=== PATIENT | male | born 1950 | race African-American/Black ===

== ENCOUNTER 2020-02-04 14:52 | Emergency (ER) | payer MEDICARE, OTHER, SELFPAY ==
[2020-02-04 15:08] VITALS: BP 149/89; PULSE 79; RESP 16; TEMP 37.2; O2SAT 95
--- NOTE | 2020-02-04 15:16 | ECG_ITS ---
Test Reason : WEAKNEDD Blood Pressure : / mmHG Vent. Rate : 069 BPM Atrial Rate : 069 BPM P-R Int : 162 ms QRS Dur : 088 ms QT Int : 336 ms P-R-T Axes : 062 067 051 degrees QTc Int : 360 ms Normal sinus rhythm with sinus arrhythmia Nonspecific ST and T wave abnormality Abnormal ECG When compared with ECG of 04-DEC-2010 22:25, ST more elevated in Inferior leads Lateral leads Referred By: Rosalina Lechuga Electronically Signed By:KEZIA TUTTLE MD
--- NOTE | 2020-02-04 15:16 | XR_ITS ---
EXAMINATION: XR CHEST CLINICAL INFORMATION: Generalized weakness COMPARISON: November 18, 2016 TECHNIQUE: AP portable view of the chest was obtained. FINDINGS: No significant abnormality is noted involving the heart, lungs, mediastinum, bony thorax or soft tissues. XR/XR chest 1V IMPRESSION: No acute disease.
[2020-02-04 15:17] VITALS: BP 151/86; PULSE 70; RESP 19; TEMP 37.2; BMI 26.3
[2020-02-04 15:25] VITALS: BP 135/79; PULSE 79
--- NOTE | 2020-02-04 15:25 | ED.WEAKNESS ---
HPI - Weakness General Chief complaint: Weakness Stated complaint: weakness Time Seen by Provider: 02/04/20 15:09 Source: patient Mode of arrival: ambulatory History of Present Illness HPI Narrative: 69-year-old male with a past medical history of BPH, spinal stenosis, hypoparathyroid, urinary retention, c/o increased fatigue/generalized weakness, migraine headache, decreased p.o. intake and feeling flushed x2 days. Reports feels similar to when he had sepsis in the past. Admits to epidural steroid injection for spinal stenosis on . Reports history of migraines, headache not maximal in onset. Denies vision changes, CP/SOB, nausea/vomiting/diarrhea, urinary symptoms, numbness/tingling MD Complaint: generalized weakness and lack of energy Related Data Previous Rx's Medication Instructions Recorded tamsulosin 0.4 mg capsule 0.4 mg PO DAILY #90 cap 02/01/20 tamsulosin 0.4 mg capsule 0.4 mg PO BEDTIME #30 cap 02/02/20 tamsulosin 0.4 mg capsule 0.4 mg PO BEDTIME #30 cap 02/02/20 Allergies Allergy/AdvReac Type Severity Reaction Status Date / Time nut - unspecified [NUTS] Allergy Mild THROAT Verified 02/04/20 17:27 RODRIGUEZ pollen extracts [POLLEN] Allergy Mild Nasal Unverified 02/04/20 17:28 congestion GRASS Allergy Mild Nasal Uncoded 02/04/20 17:28 congestion Review of Systems Review of Systems: Constitutional: No Weight loss, No Fever, No Chills, +Fatigue, + Malaise ENT/Mouth: No sore throat, No Rhinorrhea Eyes: No Vision Changes Cardiovascular: No Chest Pain, No SOB, No Palpitations Respiratory: No Cough, No Sputum, No Dyspnea Gastrointestinal: No Nausea, No Vomiting, No Diarrhea, No Constipation, No Abdominal pain Genitourinary: N No Dysuria, No Urinary Frequency, No Hematuria, No Flank Pain, No Urinary Flow Changes Musculoskeletal: No joint pain, No Myalgias, No Joint Swelling Skin: No Skin Lesions, No rash Neuro: +Weakness, No Numbness, No Paresthesias, No Loss of Consciousness, No Dizziness, + Headache Yes all other systems are reviewed and are negative Neurologic: Denies Sensory deficit (Neuro) PMFSH Past Medical History Attestation statement: The following information was validated with the patient. Medical History (Updated 02/04/20 @ 17:11 by MAISHA Callaway) BPH (benign prostatic hyperplasia) Kidney stones Sepsis Spinal stenosis Surgical hypoparathyroidism Urinary retention Surgical History (Updated 02/04/20 @ 15:22 by Joselin Westbrook) H/O shoulder surgery Social History Social History Alcohol intake: former Smoking Status: Former smoker Use of substances other than those prescribed or required for medical reasons: No Advance Directives: No Advance Directives Information Provided: No Physical Exam Vital Signs: Vital Signs: Last Vital Signs Temp 99.0 F 02/04/20 15:17 Pulse 89 02/04/20 15:27 Resp 19 02/04/20 15:17 BP 145/79 H 02/04/20 15:27 Pulse Ox 95 02/04/20 15:08 Body Mass Index 26.3 Const: General: cooperative and healthy appearing Orientation/consciousness: patient oriented x3 Limitations: no limitations HENMT: Head: Yes normal to inspection Ears: hearing grossly normal bilaterally General nose exam: Normal external nose present Face and sinus: Yes normal facial exam Mouth: Normal oral and palatal mucosa present Throat: Yes posterior oropharynx normal Eyes: General: appearance normal, both eyes and all related structures Pupils: Equal, round and reactive pupils present EOM: EOMs intact bilaterally Neck: Neck: Yes normal visual inspection, Yes no lymphadenopathy and Yes no meningeal signs Resp: Effort & Inspection: normal respiratory effort Auscultation: clear to auscultation bilaterally, no crackles, no rhonchi and no wheezes Cardio: Rate: regular rate Heart sounds: S1 normal heart sound present and S2 normal heart sound present GI: Inspection: Yes normal to inspection Palpation (GI): Soft to palpation, nontender, no guarding and not rigid Skin: Rashes: no rashes Wounds: no wounds Neuro: General: patient oriented x3, gait normal, tone normal, moves all extremities, no meningeal signs, no focal motor deficits and CN's II-XI intact bilaterally Cranial nerves: Yes Equal, round and reactive pupils present Gait exam (Neuro): Normal gait present Motor exam (neuro): 5/5 motor strength present throughout Sensory Exam: No Sensory deficit (Neuro) Coordination: [id number] test normal Extrem: General: Yes normal to inspection Course Course Course Narrative: -EKG showing ST elevation in V3 through V6, no reciprocal changes, EKG change from prior 2010. Picture sent to dehydration unit operator, Dr. Mora who does not believe this is active STEMI. Patient without active CP. Recommended 2nd troponin, and repeat EKG. Reports likely repolarization or pericarditis -WBC 12.7, BUN 32, initial troponin 10.9 >> will obtain 3 hour repeat -CXR unremarkable -1713--repeat EKG without changes from prior --1800--ED care transferred to MAISHA Simpson pending repeat troponin, orthostatic vital signs, and UA MDM - Weakness MDM Narrative Medical decision making narrative: 69-year-old male with a past medical history of BPH, spinal stenosis, hypoparathyroid, urinary retention, c/o increased fatigue/generalized weakness, migraine headache, decreased p.o. intake and feeling flushed x2 days. On exam VSS, NAD/well-appearing, exam benign/nonfocal, no focal neuro deficits. Concern for viral syndrome/COVID-19 vs metabolic abnormalities. Rule out infectious etiology. Low concern for CVA/meningitis, or sepsis Plan: EKG, labs, UA, CXR, IVF, reassess Lab Data Result diagrams: 02/04/20 15:43 02/04/20 15:43 Labs: Lab Results 02/04/20 02/04/20 02/04/20 Range/Units 15:43 15:43 15:43 WBC 12.7 H (4.8-10.8) X10*3/uL RBC 5.83 H (4.60-5.80) X10*6/uL Hgb 14.0 (14.0-18.0) g/dl Hct 43.9 (42-52) % MCV 75.3 L (80-98) fL MCH 24.0 L (27.0-33.0) pg MCHC 31.9 (31.0-36.0) g/dl RDW 12.5 (11.0-16.0) % Plt Count 323 (160-400) X10*3/uL MPV 10.2 (9.4-12.4) fL Immature Gran % (Auto) 1.3 H (0.0-0.4) % Neut % (Auto) 70.0 (45-73) % Lymph % (Auto) 17.1 L (20-40) % [place] % (Auto) 11.5 H (2-11) % Eos % (Auto) 0.0 (0-4) % Baso % (Auto) 0.1 (0-2) % Lymph # (Auto) 2.2 (1.2-4.9) X10*3/uL [place] # (Auto) 1.5 H (0.1-1.2) X10*3/uL Eos # (Auto) 0.0 (0.0-0.4) X10*3/uL Baso # (Auto) 0.0 (0.0-0.2) X10*3/uL Abs Immat Gran (auto) 0.17 H (0.00-0.03) X10*3/uL Absolute Neuts (auto) 8.9 H (2.0-8.3) X10*3/uL Absolute Nucleated RBC 0.000 (0.0-0.012) X10*3/uL Nucleated RBC % (auto) 0.0 (0.0-0.2) /100WBC Hold Blue Top SEE NOTE Sodium 136 (135-145) mmol/L Potassium 4.3 (3.3-5.1) mmol/l Chloride 100 (96-108) mmol/L Carbon Dioxide 24 (22-29) mmol/L Anion Gap 16 (12-20) BUN 32 H (9-16) mg/dL Creatinine 1.30 (0.5-1.4) mg/dL Estim Creat Clear Calc 59.6 Estimated GFR 55 Random Glucose 102 (60-115) mg/dL Calcium 9.5 (8.4-10.2) mg/dL Magnesium (1.6-2.6) mg/dL Total Bilirubin 1.0 (0.0-1.0) mg/dL Direct Bilirubin 0.3 (0.0-0.5) mg/dL AST 34 (5-37) U/L ALT 49 H (0-40) U/L Alkaline Phosphatase 63 (39-117) U/L Troponin I High Sens (<3.5-35.0) ng/L Total Protein 7.3 (6.5-8.0) g/dL Albumin 4.4 (3.5-5.0) g/dL Lipase (8-78) U/L Urine Color Urine Appearance Urine pH (5.0-8.0) Ur Specific [place] (1.005-1.025) Urine Protein (NEG-TRACE) MG/DL Urine Glucose (UA) (NEG) MG/DL Urine Ketones (NEG) MG/DL Urine Blood (NEG) Urine Nitrite (NEG) Ur Leukocyte Esterase (NEG) Urine RBC (0) /HPF Urine WBC (0-4) /HPF Ur Squamous Epith Cells /LPF Urine Bacteria /LPF 02/04/20 02/04/20 02/04/20 Range/Units 15:43 15:43 17:10 WBC (4.8-10.8) X10*3/uL RBC (4.60-5.80) X10*6/uL Hgb (14.0-18.0) g/dl Hct (42-52) % MCV (80-98) fL MCH (27.0-33.0) pg MCHC (31.0-36.0) g/dl RDW (11.0-16.0) % Plt Count (160-400) X10*3/uL MPV (9.4-12.4) fL Immature Gran % (Auto) (0.0-0.4) % Neut % (Auto) (45-73) % Lymph % (Auto) (20-40) % [place] % (Auto) (2-11) % Eos % (Auto) (0-4) % Baso % (Auto) (0-2) % Lymph # (Auto) (1.2-4.9) X10*3/uL [place] # (Auto) (0.1-1.2) X10*3/uL Eos # (Auto) (0.0-0.4) X10*3/uL Baso # (Auto) (0.0-0.2) X10*3/uL Abs Immat Gran (auto) (0.00-0.03) X10*3/uL Absolute Neuts (auto) (2.0-8.3) X10*3/uL Absolute Nucleated RBC (0.0-0.012) X10*3/uL Nucleated RBC % (auto) (0.0-0.2) /100WBC Hold Blue Top Sodium (135-145) mmol/L Potassium (3.3-5.1) mmol/l Chloride (96-108) mmol/L Carbon Dioxide (22-29) mmol/L Anion Gap (12-20) BUN (9-16) mg/dL Creatinine (0.5-1.4) mg/dL Estim Creat Clear Calc Estimated GFR Random Glucose (60-115) mg/dL Calcium (8.4-10.2) mg/dL Magnesium 2.3 (1.6-2.6) mg/dL Total Bilirubin (0.0-1.0) mg/dL Direct Bilirubin (0.0-0.5) mg/dL AST (5-37) U/L ALT (0-40) U/L Alkaline Phosphatase (39-117) U/L Troponin I High Sens 10.9 (<3.5-35.0) ng/L Total Protein (6.5-8.0) g/dL Albumin (3.5-5.0) g/dL Lipase 13 (8-78) U/L Urine Color STRAW Urine Appearance CLEAR Urine pH 6.0 (5.0-8.0) Ur Specific [place] 1.020 (1.005-1.025) Urine Protein NEG (NEG-TRACE) MG/DL Urine Glucose (UA) NEG (NEG) MG/DL Urine Ketones NEG (NEG) MG/DL Urine Blood TRACE (NEG) Urine Nitrite NEG (NEG) Ur Leukocyte Esterase NEG (NEG) Urine RBC 0 (0) /HPF Urine WBC 0 (0-4) /HPF Ur Squamous Epith Cells NONE /LPF Urine Bacteria TRACE /LPF Discharge Plan Discharge Clinical Impression: Generalized weakness Patient Disposition: Home, Self-Care Instructions: Weakness (ED) Additional Instructions: Your EKG had concerning changes, however your blood work is reassuring today in the ED You need to have close follow-up with her doctor Make sure staying hydrated at home If symptoms persist or worsen, you develop focal weakness, numbness/tingling, chest pain, or shortness of breath return to the ED immediately You should follow-up with a dehydration unit operator Based on your symptoms and history we have sent a COVID-19. Although your RESULT IS PENDING at this time. RESULTS should return within 72 hours. At this time you will be contacted with either NEGATIVE OR POSITIVE results. -Please wait until we contact you for your results. At this time you will be okay for discharge. Please plan for self quarantine for up to 14 days. Do not expose yourself to others. You may not go to work. If testing does come back negative you may return to activities as long as you are no longer having any symptoms for at least 3 days. Please continue to follow cold instructions and wash your hands frequently. You may take Tylenol as directed on the bottle for pain or fever. Patient seen in the emergency department on 09/23/2019 and should be excused from work until negative test results AND until 72 hours without any symptoms AND at least 10 days have passed since symptoms first appeared or since last exposure to COVID-19 positive patient CDC Guidelines for home isolation: - Stay away from others - WEAR A MASK if you are sick AND STAY HOME - Cover your mouth and nose with a tissue when you cough or sneeze. Dispose of tissues in a lined trash can and wash your hands immediately with soap and water for at least 20 seconds. If soap and water are not available, clean hands with alcohol-based hand capital markets specialist that contains at least 60% alcohol. - Clean your hands often with soap and water for at least 20 seconds - Avoid touching your eyes, nose and mouth with unwashed hands - Do not share dishes, drinking glasses, cups, eating utensils, towels, or bedding with other people in your home. After using these items, wash them thoroughly with soap and water or put in the registration representative. - Clean high-touch surfaces in your isolation area ( sick room and bathroom) every day; let a caregiver clean and disinfect high-touch surfaces in other areas of the home. Clean the area or item with soap and water or another detergent if it is dirty. Then, use a household disinfectant. - Limit contact with pets and animals: If you must care for a pet, wash your hands before and after interacting with them) Prescriptions: No Action tamsulosin 0.4 mg capsule 0.4 mg PO BEDTIME Qty: 30 RF: 2 tamsulosin 0.4 mg capsule 0.4 mg PO BEDTIME Qty: 30 RF: 2 Referrals: oBla Mora MD [Physician] - 5 days Ronnie Sifuentes MD [Primary Care Provider] - 2 days
[2020-02-04 15:27] VITALS: BP 130/86; BP 145/79; PULSE 77; PULSE 89
--- NOTE | 2020-02-04 15:40 | PC.NURSE ---
patient a&o, power machine operator applied-nsr, iv inserted, labs drawn, pt medicated per order, will continue to monitor.
[2020-02-04 15:52] LABS: MANUAL DIFF FLAG NO
[2020-02-04 15:55] LABS: Basophils Percent Auto 0.1 % (0-2); Hematocrit 43.9 % (42-52); Imm Gran Abs Auto 0.17 X10*3/uL (0.00-0.03); Imm Gran Pct Auto 1.3 % (0.0-0.4); Lymphocytes Absolute Auto 2.2 X10*3/uL (1.2-4.9); Lymphocytes Percent Auto 17.1 % (20-40); Mean Corpuscular HGB Conc 31.9 g/dl (31.0-36.0); Mean Corpuscular Volume 75.3 fL (80-98); Mean Platelet Volume 10.2 fL (9.4-12.4); Monocytes Absolute Auto 1.5 X10*3/uL (0.1-1.2); Monocytes Percent Auto 11.5 % (2-11); Neutrophils Absolute Auto 8.9 X10*3/uL (2.0-8.3); Platelet Count 323 X10*3/uL (160-400); Red Blood Count 5.83 X10*6/uL (4.60-5.80); Red Cell Distribution Width 12.5 % (11.0-16.0); White Blood Count 12.7 X10*3/uL (4.8-10.8)
[2020-02-04] MEDS: 0.9 % Sodium Chloride 1,000 ML 999 ML IVCONT (16:20)
[2020-02-04] MEDS: Acetaminophen 325 MG TABLET 650 MG PO (16:21)
[2020-02-04 16:30] LABS: Alanine Aminotransferase 49 U/L (0-40); Albumin Level 4.4 g/dL (3.5-5.0); Alkaline Phosphatase 63 U/L (39-117); Anion Gap 16 (12-20); Aspartate Amino Transferase 34 U/L (5-37); Bilirubin Direct 0.3 mg/dL (0.0-0.5); Blood Urea Nitrogen 32 mg/dL (9-16); Calcium 9.5 mg/dL (8.4-10.2); Carbon Dioxide 24 mmol/L (22-29); Chloride 100 mmol/L (96-108); Creatinine Clr Calc Pharmacy 59.6; Estimated Glomerular Filt Rate 55; Glucose Random 102 mg/dL (60-115); Potassium 4.3 mmol/l (3.3-5.1); Sodium 136 mmol/L (135-145); Total Protein 7.3 g/dL (6.5-8.0)
[2020-02-04 16:32] LABS: Troponin-I High Sensitivity 10.9 ng/L (<3.5-35.0)
[2020-02-04 16:37] LABS: Lipase 13 U/L (8-78); Magnesium 2.3 mg/dL (1.6-2.6)
--- NOTE | 2020-02-04 16:43 | ECG_ITS ---
Test Reason : REPEAT Blood Pressure : / mmHG Vent. Rate : 059 BPM Atrial Rate : 059 BPM P-R Int : 162 ms QRS Dur : 088 ms QT Int : 356 ms P-R-T Axes : 067 063 045 degrees QTc Int : 352 ms Sinus bradycardia Nonspecific ST and T wave abnormality Abnormal ECG When compared with ECG of 04-FEB-2020 15:39, No significant change was found Referred By: Rosalina Lechuga Electronically Signed By:KEZIA TUTTLE MD
[2020-02-04 17:26] LABS: Glucose Urine UA NEG (NEG); Leukocyte Esterase Urine NEG (NEG); Nitrite Urine NEG (NEG); Urine Blood TRACE (NEG); Urine Ketones NEG (NEG); Urine Protein NEG (NEG-TRACE)
[2020-02-04 17:29] LABS: Appearance Urine CLEAR; Color Urine STRAW
[2020-02-04 17:36] LABS: Bacteria Urine TRACE /LPF; RBC Urine 0 /HPF (0); WBC Urine 0 /HPF (0-4)
[2020-02-04 18:15] VITALS: BP 137/76; PULSE 60; RESP 18; TEMP 37.1; O2SAT 96
--- NOTE | 2020-02-04 18:16 | PC.NURSE ---
patient a&ox3, pt ivf continue to run as they were running slow- iv site checked-patient, patient awaiting results of labs, will continue to monitor.
[2020-02-04 19:26] LABS: Troponin-I High Sensitivity 14.4 ng/L (<3.5-35.0)
== END 2020-02-04 20:00 | disposition home or self-care (01) ==
PROVIDERS: Physician Assistant; Emergency Provider Emergency Medicine; PCP Family Medicine
DX: R53.1 Weakness (principal); R51.9 Headache, unspecified; Z79.899 Other long term (current) drug therapy; Z20.828 Contact with and (suspected) exposure to other viral communicable diseases
CPT/HCPCS: 36415; 71045; 80048; 80076; 81001; 83690; 83735; 84484; 85025; 93005; 96360; 99284; U0003

== ENCOUNTER → 2020-06-07 15:23 | Outpatient (BNVA) | payer MEDICARE, OTHER, SELFPAY | PROVIDERS: Visit Provider Urology | DX: Z13.89 Encounter for screening for other disorder (principal) | CPT/HCPCS: Q3014 ==

== ENCOUNTER 2021-08-28 12:51 | Outpatient (REF) | payer MEDICARE, OTHER, SELFPAY ==
--- NOTE | ~2021-08-28 | US_ITS ---
EXAMINATION: US RETROPERITONEAL LIMITED (RENAL ONLY) CLINICAL INFORMATION: Calculus of kidney. COMPARISON: Ultrasound renal with bladder 12/20/2018. TECHNIQUE: Real-time imaging of the kidneys. FINDINGS: RIGHT KIDNEY: 11.0 x 5.8 x 6.4 cm (SAG x AP x TRV). The kidney is normal in size, contour, and echogenicity. Renal cortical thickness is normal. No renal calculi or hydronephrosis. There are at least 3 anechoic cysts. The mid pole cyst has a septation and measures 2.1 x 2.3 x 2.0 cm. A simple mid pole cyst measures 0.9 x 1.0 x 0.9 cm and a simple cyst lower pole measuring 1.0 x 1.0 x 1.0 cm. LEFT KIDNEY: 10.8 x 4.8 x 5.4 cm (SAG x AP x TRV). The kidney is normal in size, contour, and echogenicity. Renal cortical thickness is normal. No calculi or focal parenchymal lesions. No hydronephrosis. US/US renal BI IMPRESSION: Two simple cysts and a complex cyst of the right kidney. The left kidney is unremarkable.
== END 2021-08-28 12:52 | disposition home or self-care (01) ==
LOC: HO.US 12:51
PROVIDERS: Visit Provider Urology
DX: N20.0 Calculus of kidney (principal)
CPT/HCPCS: 76775

== ENCOUNTER → 2021-09-06 13:44 | Outpatient (BNVA) | payer MEDICARE, OTHER, SELFPAY | PROVIDERS: PCP Student in an Organized Health Care Education/Training Program; Visit Provider Urology | DX: N40.1 Benign prostatic hyperplasia with lower urinary tract symptoms (principal); N13.8 Other obstructive and reflux uropathy; N31.9 Neuromuscular dysfunction of bladder, unspecified; N20.0 Calculus of kidney; N28.1 Cyst of kidney, acquired | CPT/HCPCS: 51798; 99212 ==

== ENCOUNTER 2022-08-28 12:24 | Outpatient (REF) | payer MEDICARE, SELFPAY ==
--- NOTE | ~2022-08-28 | US_ITS ---
EXAMINATION: US RETROPERITONEAL LIMITED (RENAL ONLY) CLINICAL INFORMATION: Cyst of kidney, acquired. COMPARISON: Ultrasound retroperitoneal limited (renal only) 08/28/2021. TECHNIQUE: Real-time imaging of the kidneys. FINDINGS: RIGHT KIDNEY: 9.6 x 5.3 x 5.3 cm (SAG x AP x TRV). The kidney is normal in size, contour, and echogenicity. Renal cortical thickness is normal. No renal calculi or hydronephrosis. Benign-appearing and likely benign appearing renal cysts the largest with a thin internal septation measuring 2.2 cm on the previously 2.3 cm. LEFT KIDNEY: 10.5 x 5.0 x 5.4 cm (SAG x AP x TRV). The kidney is normal in size, contour, and echogenicity. Renal cortical thickness is normal. No calculi or focal parenchymal lesions. No hydronephrosis. Punctate echogenic focus is in the mid pole without shadowing or twinkle artifact may reflect a vascular reflector. US/US renal BI IMPRESSION: 1. Benign-appearing and likely benign appearing renal cysts the largest measuring 2.2 cm on the right with a thin internal septation, not significantly changed from prior.
== END 2022-08-28 12:25 | disposition home or self-care (01) ==
LOC: HO.US 12:24
PROVIDERS: PCP Student in an Organized Health Care Education/Training Program; Visit Provider Urology
DX: N28.1 Cyst of kidney, acquired (principal)
CPT/HCPCS: 76775

== ENCOUNTER → 2022-09-10 14:32 | Outpatient (BNVA) | payer MEDICARE, SELFPAY | PROVIDERS: PCP Student in an Organized Health Care Education/Training Program; Visit Provider Urology | DX: N28.1 Cyst of kidney, acquired (principal); N20.0 Calculus of kidney; N31.9 Neuromuscular dysfunction of bladder, unspecified; N40.1 Benign prostatic hyperplasia with lower urinary tract symptoms; N13.8 Other obstructive and reflux uropathy; R33.9 Retention of urine, unspecified; R42 Dizziness and giddiness; Z79.899 Other long term (current) drug therapy | CPT/HCPCS: 99212 ==

== ENCOUNTER 2023-05-16 12:50 | Emergency (ER) | payer MEDICARE, SELFPAY ==
--- NOTE | ~2023-05-16 | XR_ITS ---
EXAMINATION: XR CHEST CLINICAL INFORMATION: Chest pain COMPARISON: Previous chest x-ray most recent January 2020 TECHNIQUE: Frontal view of the chest was obtained. FINDINGS: The cardiac and mediastinal contours are stable. 8 mm nodular density projects over the right lung base. This probably represents a nipple shadow and is similar to old exams from 2010. Lungs are otherwise clear. No pleural effusion or pneumothorax. Bony structures are unremarkable. XR/XR chest 1V IMPRESSION: No evidence for acute disease in the chest. 8 mm nodular density at the right lung base, probably representing a nipple shadow.
--- NOTE | 2023-05-16 12:53 | ECG_ITS ---
Test Reason : CHEST PAIN Blood Pressure : / mmHG Vent. Rate : 063 BPM Atrial Rate : 063 BPM P-R Int : 194 ms QRS Dur : 086 ms QT Int : 352 ms P-R-T Axes : 066 050 024 degrees QTc Int : 360 ms Normal sinus rhythm with sinus arrhythmia Nonspecific ST and T wave abnormality Abnormal ECG When compared with ECG of 04-FEB-2020 17:05, No significant change was found Referred By: Rosalina Musa Electronically Signed By:Bola Mora
[2023-05-16 13:53] VITALS: BP 141/78; PULSE 65; RESP 16; TEMP 36.3; O2SAT 96; BMI 25.8
--- NOTE | 2023-05-16 13:53 | ED_ITS ---
HPI - Chest Pain General Chief Complaint: Chest Pain Stated Complaint: chest pain Time Seen by Provider: 05/16/23 16:09 Source: patient Mode of arrival: ambulatory History of Present Illness HPI narrative: 72-year-old male who was doing the crossword puzzle today at approximately 11:45 and then began experiencing substernal chest pressure with radiation into the right jaw without associated lightheadedness/dizziness/shortness of breath or nausea but states that he did feel weak, he was able to go up stairs to get changed and also walked to the car and came into the emergency room. He denies any worsening of his symptoms with exertion and states that this has not happened previously and that his symptoms lasted for approximately 1 hour. He denies any history of hypertension or diabetes. Related Data Allergies Allergy/AdvReac Type Severity Reaction Status Date / Time nut - unspecified [NUTS] Allergy Mild THROAT Verified 05/16/23 13:57 RODRIGUEZ pollen extracts [POLLEN] Allergy Mild Nasal Verified 05/16/23 13:57 congestion GRASS Allergy Mild Nasal Uncoded 05/16/23 13:57 congestion Review of Systems 2 Review of Systems: Pertinent positives and negatives as stated in HPI PMFSH Past Medical History Source: nursing notes reviewed Medical History Kidney stones Surgical hypoparathyroidism Sepsis BPH (benign prostatic hyperplasia) Urinary retention Spinal stenosis Surgical History H/O shoulder surgery Social History Social History Alcohol intake: former Smoked in Last 30 Days: No Use of substances other than those prescribed or required for medical reasons: No Advance Directives: No Advance Directives Information Provided: No Physical Exam 2 Vital Signs: Vital Signs: Last Vital Signs Temp 98.0 F 05/16/23 17:48 Pulse 57 05/16/23 17:48 Resp 16 05/16/23 17:48 BP 128/70 05/16/23 17:48 Pulse Ox 98 05/16/23 17:48 O2 Del Method Room Air 05/16/23 17:48 BMI result Body Mass Index 25.8 VITAL SIGNS: Reviewed. GENERAL: Well developed, well nourished, in no acute distress. HEAD: Normocephalic/atraumatic EYES: PERRLA, EOMI EARS: Ext canals without abnormality NOSE: Nares patent bilateral OROPHARYNX: no oral lesions noted, posterior pharynx clear NECK: Supple, no adenopathy LUNGS: Normal breath sounds. No adventitious sounds or accessory muscle use. SpO2<98> CARDIOVASCULAR: Regular rate and rhythm without noted murmurs ABDOMEN: Soft, non-tender, non-distended with bowel sounds. MUSCULOSKELETAL: No tenderness, deformities, or effusions noted on gross inspection. EXTREMITIES: No cyanosis, clubbing or edema. SKIN: Inspection of the skin reveals no rashes NEUROLOGIC: Alert and oriented x 4. Strength and sensation to light touch were grossly intact x 4. 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 Pain resolved at present. denies fever, dizziness, SOB EKG, Labs, CXR ordered Full HPI, ROS and PE to be performed by primary ED provider. Medical Decision Making Medical Decision Making [facility] Narrative: 72-year-old male with history and clinical presentation, DDX: ACS, musculoskeletal, viral syndrome, completely asymptomatic at this time. HEART Score: 4 I reviewed all investigations and hematologic indices are negative for leukocytosis or left shift, there is no anemia or thrombocytopenia. Coagulation studies are within normal limits. Chemistry indices are grossly within normal limits and there are no noted derangements, serial troponins are flat/detectable but not significantly elevated. COVID-19 testing is negative. Chest x-ray negative for infiltrate or venous congestion and otherwise my interpretation is in agreement with radiology's impression. Patient is completely asymptomatic, had no increase in chest discomfort with exertion, though symptoms are somewhat concerning serial troponins are without elevation and there are no acute EKG changes. I discussed all results and findings with the patient at bedside and he was strongly encouraged to follow-up with his collar shaper operator on Thursday. Differential Diagnosis Differential Diagnoses: The differential diagnosis associated with the presentation includes Please see the discussion above Admission/Observation Consideration of admission/observation: Escalation of care including admission/observation considered Please see the discussion above Lab Data [facility] Lab Attestation statement: I reviewed the patient's lab results. Please see the discussion above 05/16/23 13:49 05/16/23 13:49 Labs: Lab Results 05/16/23 05/16/23 05/16/23 Range/Units 13:49 16:53 17:24 WBC 5.8 (4.8-10.8) X10*3/uL RBC 6.00 H (4.60-5.80) X10*6/uL Hgb 14.1 (14.0-18.0) g/dl Hct 45.9 (42.0-52.0) % MCV 76.5 L (80.0-98.0) fL MCH 23.5 L (27.0-33.0) pg MCHC 30.7 L (31.0-36.0) g/dl RDW 13.2 (11.0-16.0) % Plt Count 216 (160-400) X10*3/uL MPV 10.3 (9.4-12.4) fL Immature Gran % (Auto) 0.2 (0.0-0.4) % Neut % (Auto) 48.1 (45-73) % Lymph % (Auto) 41.7 H (20-40) % [place] % (Auto) 9.2 (2-11) % Eos % (Auto) 0.3 (0-4) % Baso % (Auto) 0.5 (0-2) % Lymph # (Auto) 2.4 (1.2-4.9) X10*3/uL [place] # (Auto) 0.5 (0.1-1.2) X10*3/uL Eos # (Auto) 0.0 (0.0-0.4) X10*3/uL Baso # (Auto) 0.0 (0.0-0.2) X10*3/uL Abs Immat Gran (auto) 0.01 (0.00-0.03) X10*3/uL Absolute Neuts (auto) 2.8 (2.0-8.3) x10*3/uL Absolute Nucleated RBC 0.000 (0.0-0.012) X10*3/uL Nucleated RBC % (auto) 0.0 (0.0-0.2) /100WBC PT 11.1 (11.1-13.3) SEC INR 0.9 (0.9-1.1) Sodium 143 (135-145) mmol/L Potassium 4.3 (3.3-5.1) mmol/L Chloride 106 (96-108) mmol/L Carbon Dioxide 28 (22-29) mmol/L Anion Gap 13 (12-20) BUN 16 (9-16) mg/dL Creatinine 1.22 (0.5-1.4) mg/dL Estim Creat Clear Calc 60.9 Estimated GFR 59 Random Glucose 102 (60-115) mg/dL Calcium 9.8 (8.4-10.2) mg/dL Magnesium 2.2 (1.6-2.6) mg/dL Total Bilirubin 0.8 (0.0-1.0) mg/dL AST 37 (5-37) U/L ALT 25 (0-40) U/L Alkaline Phosphatase 68 (39-117) U/L Troponin I High Sens 6.7 4.6 (<3.5-35.0) ng/L Total Protein 7.9 (6.5-8.0) g/dL Albumin 4.5 (3.5-5.0) g/dL COVID-19 ([facility]) Negative (Negative) COVID-19 Clin Com See Note Independent Interpretation I performed an independent interpretation of an: EKG Interpretation: Normal sinus rhythm with sinus arrhythmia, HR-63, no STEMI, lateral ST changes or consistent with EKG comparison from 2020, HI/QRS/QTC is within normal limits. Radiology Impression Discussion of test interpretation with radiology: I have reviewed the radiologist's reading. Radiologist Impression: Please see the discussion above External Record Review External record reviewed: Outpatient record, Prior outpatient labs and Prior outpatient radiology Critical Care Time Critical Care Time Critical Care Time: Yes Total Critical Care Time: 45 Attestation: I personally attest to this time spent taking care of the patient. Discharge Plan Discharge Clinical Impression: Chest pain Patient Disposition: Home, Self-Care Instructions: Chest Pain (ED) Additional Instructions: 1. Resume all home medications. 2. Follow-up with your collar shaper operator on Thursday morning. Return to the ER for any worsening symptoms.
[2023-05-16 13:54] LABS: MANUAL DIFF FLAG NO
[2023-05-16 13:56] LABS: Basophils Percent Auto 0.5 % (0-2); Eosinophils Percent Auto 0.3 % (0-4); Hematocrit 45.9 % (42.0-52.0); Hemoglobin 14.1 g/dl (14.0-18.0); Imm Gran Abs Auto 0.01 X10*3/uL (0.00-0.03); Imm Gran Pct Auto 0.2 % (0.0-0.4); Lymphocytes Absolute Auto 2.4 X10*3/uL (1.2-4.9); Lymphocytes Percent Auto 41.7 % (20-40); Mean Corpuscular HGB Conc 30.7 g/dl (31.0-36.0); Mean Corpuscular Hemoglobin 23.5 pg (27.0-33.0); Mean Corpuscular Volume 76.5 fL (80.0-98.0); Mean Platelet Volume 10.3 fL (9.4-12.4); Monocytes Absolute Auto 0.5 X10*3/uL (0.1-1.2); Monocytes Percent Auto 9.2 % (2-11); Neutrophils Absolute Auto 2.8 x10*3/uL (2.0-8.3); Neutrophils Percent Auto 48.1 % (45-73); Platelet Count 216 X10*3/uL (160-400); Red Cell Distribution Width 13.2 % (11.0-16.0); White Blood Count 5.8 X10*3/uL (4.8-10.8)
[2023-05-16 14:02] LABS: INTERNATIONAL NORM RATIO 0.9 (0.9-1.1); Prothrombin Time 11.1 SEC (11.1-13.3)
[2023-05-16 14:15] LABS: Alanine Aminotransferase 25 U/L (0-40); Albumin Level 4.5 g/dL (3.5-5.0); Alkaline Phosphatase 68 U/L (39-117); Anion Gap 13 (12-20); Aspartate Amino Transferase 37 U/L (5-37); Bilirubin Total 0.8 mg/dL (0.0-1.0); Blood Urea Nitrogen 16 mg/dL (9-16); Calcium 9.8 mg/dL (8.4-10.2); Carbon Dioxide 28 mmol/L (22-29); Chloride 106 mmol/L (96-108); Creatinine Clr Calc Pharmacy 60.9; Estimated Glomerular Filt Rate 59; Glucose Random 102 mg/dL (60-115); Magnesium 2.2 mg/dL (1.6-2.6); Potassium 4.3 mmol/L (3.3-5.1); Sodium 143 mmol/L (135-145); Total Protein 7.9 g/dL (6.5-8.0)
[2023-05-16 14:22] LABS: Troponin-I High Sensitivity 6.7 ng/L (<3.5-35.0)
[2023-05-16 15:37] VITALS: BP 126/71; PULSE 60; RESP 16; TEMP 36.4; O2SAT 98
[2023-05-16 17:31] LABS: Troponin-I High Sensitivity 4.6 ng/L (<3.5-35.0)
[2023-05-16 17:44] LABS: COVID-19 Test Negative (Negative); IDNOW Serial# 58CA691E
[2023-05-16 17:48] VITALS: BP 128/70; PULSE 57; RESP 16; TEMP 36.7; O2SAT 98
== END 2023-05-16 18:39 | disposition home or self-care (01) ==
PROVIDERS: Internal Medicine; Physician Assistant; Emergency Provider Student in an Organized Health Care Education/Training Program
DX: R07.9 Chest pain, unspecified (principal); Z11.52 Encounter for screening for COVID-19
CPT/HCPCS: 36415; 71045; 80053; 83735; 84484; 85025; 85610; 87635; 93005; 99283; 99284

== ENCOUNTER → 2023-05-16 12:53 | Outpatient (BNV) | payer MEDICARE, SELFPAY | PROVIDERS: Emergency Provider Student in an Organized Health Care Education/Training Program; Visit Provider Internal Medicine Cardiovascular Disease | DX: R94.31 Abnormal electrocardiogram [ECG] [EKG] (principal) | CPT/HCPCS: 93010 ==

== ENCOUNTER 2023-09-08 13:37 | Outpatient (AMB) | payer MEDICARE, SELFPAY ==
--- NOTE | 2023-09-08 13:52 | MHC.OFFVIS ---
Intake Visit Reasons: 1y/PVR Intake Note: Patient is Present for PVR/ Urology Med: Tamsulosin Antibiotic Allergy:None Blood Thinner: None Last PVR: 200 Todays PVR:456 Allergies nut - unspecified [NUTS] Allergy (Mild, Verified 09/08/23 13:54) THROAT RODRIGUEZ pollen extracts [POLLEN] Allergy (Mild, Verified 09/08/23 13:54) Nasal congestion GRASS Allergy (Mild, Uncoded 09/08/23 13:54) Nasal congestion Medication List - Last Reconciled 09/08/23 by Marco Arriola MD tamsulosin 0.4 mg PO BEDTIME 90 days HPI Comments Details: Hany POLLOCK is a very pleasant male. He is a patient of Dr Hicks. He is seen in the office today for the following urologic conditions. - neurogenic bladder - nephrolithiasis Continued high PVR Current medications include tamsulosin Discussed InterStim Neurogenic Bladder: Had been seeing every 6 months He thinks he is doing okay emptying his bladder He knows he is going to have a large residual in his bladder Will see again in 12 months with repeat ultrasound He knows how to do CIC if he finds himself in trouble 01/14 PSA 2.0. They are here for further management for incomplete emptying neurogenic bladder. Urinary retention initially found after ER visit for spontaneous retention - 10/13 with 2L residual - PVR in office 350cc - have been present for indeterminate period of time - PVR 12/14 325 - PSA 11/13 10 - PSA 02/13 2.5 - PSA 01/14 2.0 PVR on bladder US 325cc, max is 750cc - 01/15 PVR 350 cc Cystoscopy results 12/14 prostate small, minimal obstruction. Associated conditions Alzhiemers No CAD No CVA No Diabetes No Multiple sclerosis No renal replacement therapy No Spinal injury/surgery No Current management alpha blockers. Therapeutic plan continue with medication. Nephrolithiasis/Urolithiasis: They are here for further evaluation of nephrolithiasis and right renal cysts - labs and imaging discussed. Urolithiasis was diagnosed 06/08/17 - [facility] [place] with flank pain and discomfort. Controlled with medication. On flomax at baseline.. The patient previously had kidney stones whose composition w unknown. Laboratory investigations include no recent labs. 24 Hour urine evaluation none on file. Prior treatment(s) include 06/14 MET. Prior imaging includes 06/14 , a CT (computed tomography) scan of the abdomen/pelvis (stone protocol), showing radiodense stone(s), showing ureteral stone(s), on the right, 2-5 mm, hydronephrosis mild in severity 07/15 , a renal ultrasound, normal, no stones 01/14 , a renal ultrasound, showing no evidence of stones, multiple bilateral cysts 1-2 cm - 09/18 renal ultrasound bilateral cysts no evidence of stones - 08/19 renal ultrasound no evidence of stones Current therapeutic plan will be to continue with imaging surveillance [facility] Medical History (Updated 09/08/23 @ 14:21 by Marco Arriola MD) Kidney stones Surgical hypoparathyroidism Sepsis BPH (benign prostatic hyperplasia) Urinary retention Spinal stenosis Surgical History H/O shoulder surgery Social History Alcohol intake: former Review of Systems Const Denies chills and Denies fever(s) Card Reports no additional complaints and Denies syncope Resp Denies cough GI Denies abdominal pain and Denies heartburn Reports as per HPI and Denies change in libido Neuro Denies syncope Psych Denies change in libido Endo Denies change in libido Physical Exam Const General: cooperative, healthy appearing, comfortable and no acute distress Orientation/consciousness: patient oriented x3 HEENT Face and sinus: Yes normal facial exam Mouth: moist mucous membranes Neck Neck: Yes normal visual inspection, Yes full ROM and Yes trachea midline Chest Chest palpation & inspection: normal inspection of the chest Resp Effort & Inspection: normal respiratory effort, able to speak in complete sentences and no respiratory distress GI Inspection: Yes normal to inspection Back/Spine/Pelvis Cervical Spine: normal cervical lordosis Thoracic/Lumbar Spine: thoracic and lumbar spine normal to inspection Skin General skin exam: no rashes or lesions noted Neuro General: patient oriented x3, gait normal, tone normal and moves all extremities Extrem General: Yes normal to inspection and Yes capillary refill normal Office Procedures Post Void Residual Post Residual Void Post Void Residual (PVR): [id number] Void Residual by ultrasound Assessment & Plan Assessment & Plan (1) BPH w urinary obs/LUTS: Code(s): N40.1 - Benign prostatic hyperplasia with lower urinary tract symptoms; N13.8 - Other obstructive and reflux uropathy Category: Medical (2) Urinary retention: Code(s): R33.9 - Retention of urine, unspecified Category: Medical Plan Six-month follow-up Orders: Orders AMB Post Void Residual by ultrasound Today N13.8 - Other obstructive and reflux uropathy, N40.1 - Benign prostatic hyperplasia with lower urinary tract symptoms Medications: New tamsulosin 0.4 mg PO BEDTIME 90 days 90 caps 1RF Patient Instructions: Imaging studies, laboratory and physical exam results were discussed and reviewed in detail. No major barriers to patient understanding were identified. An opportunity to ask questions regarding the treatment plan was provided. All questions were answered. The patient expressed understanding and agreement with the above treatment plan. The patient is aware they should contact our office by phone for worsening of their current condition or the appearance of new urologic symptoms. Compliance is encouraged with any medications and followup testing that is ordered. It is a privilege to participate in the urologic care of your patient. If you have any questions or concerns regarding treatment for the above conditions, or other urologic issues, please do not hesitate to contact me. The office telephone contact is [phone]. This note is constructed using voice recognition software. While every effort has been made to ensure accuracy brim blocker errors may have been included. Yours sincerely, Dr Marco Arriola MD, MAHIN [facility] - Urology Providers of Expert, Compassionate Care for the Genitourinary System Coding Level of Care Code Est Pt Level 3 (92544) Diagnoses BPH w urinary obs/LUTS N40.1; N13.8 Urinary retention R33.9 CPT Codes Post Residual Void - PVR CPT Code: 31846-Wbgl Void Residual by ultrasound ([id number])
== END 2023-09-08 14:39 | disposition home or self-care (01) ==
PROVIDERS: PCP Student in an Organized Health Care Education/Training Program; Visit Provider Urology
DX: N40.1 Benign prostatic hyperplasia with lower urinary tract symptoms (principal); N13.8 Other obstructive and reflux uropathy; R33.9 Retention of urine, unspecified
CPT/HCPCS: 99213

== ENCOUNTER → 2023-09-08 13:37 | Outpatient (BNVA) | payer MEDICARE, SELFPAY | PROVIDERS: PCP Student in an Organized Health Care Education/Training Program; Visit Provider Urology | DX: N40.1 Benign prostatic hyperplasia with lower urinary tract symptoms (principal); N13.8 Other obstructive and reflux uropathy; R33.9 Retention of urine, unspecified | CPT/HCPCS: 51798; 99212 ==

== ENCOUNTER 2023-10-26 11:41 | Outpatient (REF) | payer MEDICARE, SELFPAY ==
[2023-10-26 13:02] LABS: Appearance Urine Clear; Color Urine Dark Yellow; Glucose Urine UA Negative (Negative); Leukocyte Esterase Urine Moderate (2+) (Negative); Nitrite Urine Negative (Negative); Specific Gravity - Urine 1.015 (1.005-1.025); UMIC TRIGGER UA YES; Urine Blood Trace (Negative); Urine Ketones Negative (Negative); Urine Protein Negative (Neg-Trace)
[2023-10-26 13:06] LABS: Bacteria Urine 4+ (None Seen); Hyaline Casts Urine 0-2 /LPF (0-2); RBC Urine >20 /HPF (0-2); Squamous Epithelial Cell Urine 0-2 /HPF (0-2); WBC Urine >50 /HPF (0-5)
== END 2023-10-26 11:42 | disposition home or self-care (01) ==
LOC: HO.LAB 11:41
PROVIDERS: PCP Student in an Organized Health Care Education/Training Program; Visit Provider Urology
DX: R33.9 Retention of urine, unspecified (principal); N40.1 Benign prostatic hyperplasia with lower urinary tract symptoms; N13.8 Other obstructive and reflux uropathy; R82.79 Other abnormal findings on microbiological examination of urine
CPT/HCPCS: 81001; 87086; 87088; 87186

== ENCOUNTER 2023-11-17 15:40 | Outpatient (REF) | payer MEDICARE, SELFPAY ==
[2023-11-17 16:06] LABS: Appearance Urine Clear; Color Urine Yellow; Glucose Urine UA Negative (Negative); Leukocyte Esterase Urine Moderate (2+) (Negative); Nitrite Urine Negative (Negative); PH 5.5 (5.0-9.0); UMIC TRIGGER UA YES; Urine Blood Negative (Negative); Urine Ketones Negative (Negative); Urine Protein Trace mg/dL (Neg-Trace)
[2023-11-17 16:08] LABS: Bacteria Urine 4+ (None Seen); Hyaline Casts Urine 0-2 /LPF (0-2); RBC Urine 0-2 /HPF (0-2); Squamous Epithelial Cell Urine 0-2 /HPF (0-2); WBC Urine >50 /HPF (0-5)
== END 2023-11-17 15:41 | disposition home or self-care (01) ==
LOC: HO.LAB 15:40
PROVIDERS: PCP Student in an Organized Health Care Education/Training Program; Visit Provider Urology
DX: R33.9 Retention of urine, unspecified (principal); N20.0 Calculus of kidney; N40.1 Benign prostatic hyperplasia with lower urinary tract symptoms; N13.8 Other obstructive and reflux uropathy
CPT/HCPCS: 81001; 87086; 87088; 87186

== ENCOUNTER 2023-11-20 15:24 | Outpatient (AMB) | payer MEDICARE, SELFPAY ==
--- NOTE | 2023-11-20 15:42 | MHC.OFFVIS ---
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 He attempted to CIC but nothing was coming out. 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 He is a patient of Dr Hicks. He is seen in the office today for the following urologic conditions. - neurogenic bladder - nephrolithiasis Questions regarding CIC Has discomfort Neurogenic Bladder: Had been seeing every 6 months He thinks he is doing okay emptying his bladder He knows he is going to have a large residual in his bladder Will see again in 12 months with repeat ultrasound He knows how to do CIC if he finds himself in trouble 01/14 PSA 2.0. They are here for further management for incomplete emptying neurogenic bladder. Urinary retention initially found after ER visit for spontaneous retention - 10/13 with 2L residual - PVR in office 350cc - have been present for indeterminate period of time - PVR 12/14 325 - PSA 11/13 10 - PSA 02/13 2.5 - PSA 01/14 2.0 PVR on bladder US 325cc, max is 750cc - 01/15 PVR 350 cc Cystoscopy results 12/14 prostate small, minimal obstruction. Associated conditions Alzhiemers No CAD No CVA No Diabetes No Multiple sclerosis No renal replacement therapy No Spinal injury/surgery No Current management alpha blockers. Therapeutic plan continue with medication. Nephrolithiasis/Urolithiasis: They are here for further evaluation of nephrolithiasis and right renal cysts - labs and imaging discussed. [place] [facility] [place]. Controlled with medication. On flomax at baseline.. The patient previously had kidney stones whose composition w unknown. Laboratory investigations include no recent labs. 24 Hour urine evaluation none on file. Prior treatment(s) include 06/14 MET. Prior imaging includes 06/14 , a CT (computed tomography) scan of the abdomen/pelvis (stone protocol), showing radiodense stone(s), showing ureteral stone(s), on the right, 2-5 mm, hydronephrosis mild in severity 07/15 , a renal ultrasound, normal, no stones 01/14 , a renal ultrasound, showing no evidence of stones, multiple bilateral cysts 1-2 cm - 09/18 renal ultrasound bilateral cysts no evidence of stones - 08/19 renal ultrasound no evidence of stones Current therapeutic plan will be to continue with imaging surveillance [facility] Medical History Kidney stones Surgical hypoparathyroidism Sepsis BPH (benign prostatic hyperplasia) Urinary retention Spinal stenosis Surgical History H/O shoulder surgery Social History Alcohol intake: former Review of Systems Const Denies chills and Denies fever(s) Card Reports no additional complaints and Denies syncope Resp Denies cough GI Denies abdominal pain and Denies heartburn Reports as per HPI and Denies change in libido Neuro Denies syncope Psych Denies change in libido Endo Denies change in libido Physical Exam Const General: cooperative, healthy appearing, comfortable and no acute distress Orientation/consciousness: patient oriented x3 HEENT Face and sinus: Yes normal facial exam Mouth: moist mucous membranes Neck Neck: Yes normal visual inspection, Yes full ROM and Yes trachea midline Chest Chest palpation & inspection: normal inspection of the chest Resp Effort & Inspection: normal respiratory effort, able to speak in complete sentences and no respiratory distress GI Inspection: Yes normal to inspection Back/Spine/Pelvis Cervical Spine: normal cervical lordosis Thoracic/Lumbar Spine: thoracic and lumbar spine normal to inspection Skin General skin exam: no rashes or lesions noted Neuro General: patient oriented x3, gait normal, tone normal and moves all extremities Extrem General: Yes normal to inspection and Yes capillary refill normal Assessment & Plan Assessment & Plan (1) Urinary retention: Code(s): R33.9 - Retention of urine, unspecified Category: Medical (2) BPH w urinary obs/LUTS: Code(s): N40.1 - Benign prostatic hyperplasia with lower urinary tract symptoms; N13.8 - Other obstructive and reflux uropathy Category: Medical Plan Place on methenamine Keep regular appointment Medications: New methenamine hippurate 1 g PO DAILY 90 tabs 1RF 90 days R33.9 - Retention of urine, unspecified, N39.0 - Urinary tract infection, site not specified Patient Instructions: Imaging studies, laboratory and physical exam results were discussed and reviewed in detail. No major barriers to patient understanding were identified. An opportunity to ask questions regarding the treatment plan was provided. All questions were answered. The patient expressed understanding and agreement with the above treatment plan. The patient is aware they should contact our office by phone for worsening of their current condition or the appearance of new urologic symptoms. Compliance is encouraged with any medications and followup testing that is ordered. It is a privilege to participate in the urologic care of your patient. If you have any questions or concerns regarding treatment for the above conditions, or other urologic issues, please do not hesitate to contact me. The office telephone contact is [phone]. This note is constructed using voice recognition software. While every effort has been made to ensure accuracy lead mobile developer errors may have been included. Yours sincerely, Dr Marco Arriola MD, MAHIN [facility] - Urology Providers of Expert, Compassionate Care for the Genitourinary System Coding Level of Care Code Est Pt Level 3 (95843) Diagnoses Urinary retention R33.9 BPH w urinary obs/LUTS N40.1; N13.8
== END 2023-11-20 16:20 | disposition home or self-care (01) ==
PROVIDERS: PCP Student in an Organized Health Care Education/Training Program; Visit Provider Urology
DX: R33.9 Retention of urine, unspecified (principal); N40.1 Benign prostatic hyperplasia with lower urinary tract symptoms; N13.8 Other obstructive and reflux uropathy
CPT/HCPCS: 99213

== ENCOUNTER → 2023-11-20 15:24 | Outpatient (BNVA) | payer MEDICARE, SELFPAY | PROVIDERS: PCP Student in an Organized Health Care Education/Training Program; Visit Provider Urology | DX: K59.04 Chronic idiopathic constipation (principal); N31.9 Neuromuscular dysfunction of bladder, unspecified; Z87.442 Personal history of urinary calculi | CPT/HCPCS: 99212 ==

== ENCOUNTER 2024-03-08 11:31 | Outpatient (AMB) | payer MEDICARE, SELFPAY ==
--- NOTE | 2024-03-08 11:33 | A.OFFVIS_ITS ---
Intake Visit Reasons: 6m/PVR Intake Note: Patient is present for 6M/PVR Urology Medication:TAMSULOSIN,METHANAMINE HIPPURATE Antibiotic Allergy:NONE Blood Thinner:NONE Last PVR: Todays PVR:0ML'S Shank Cutter Required: No Allergies nut - unspecified [NUTS] Allergy (Mild, Verified 03/08/24 11:35) THROAT RODRIGUEZ pollen extracts [POLLEN] Allergy (Mild, Verified 03/08/24 11:35) Nasal congestion GRASS Allergy (Mild, Uncoded 03/08/24 11:35) Nasal congestion HPI Comments Details: Hany POLLOCK is a very pleasant male. He is a patient of Dr Hicks. He is seen in the office today for the following urologic conditions. - neurogenic bladder - nephrolithiasis Only doing occasional CIC Again discussed use of neurostimulator There were no real medications that can help his current situation Would like to try prostate procedure although previously has had a small prostate Neurogenic Bladder: Had been seeing every 6 months He thinks he is doing okay emptying his bladder He knows he is going to have a large residual in his bladder Will see again in 12 months with repeat ultrasound He knows how to do CIC if he finds himself in trouble 01/14 PSA 2.0. They are here for further management for incomplete emptying neurogenic bladder. Urinary retention initially found after ER visit for spontaneous retention - 10/13 with 2L residual - PVR in office 350cc - have been present for indeterminate period of time - PVR 12/14 325 - PSA 11/13 10 - PSA 02/13 2.5 - PSA 01/14 2.0 PVR on bladder US 325cc, max is 750cc - 01/15 PVR 350 cc Cystoscopy results 12/14 prostate small, minimal obstruction. Associated conditions Alzhiemers No CAD No CVA No Diabetes No Multiple sclerosis No renal replacement therapy No Spinal injury/surgery No Current management alpha blockers. Therapeutic plan continue with medication. Nephrolithiasis/Urolithiasis: They are here for further evaluation of nephrolithiasis and right renal cysts - labs and imaging discussed. [place]rol[place] [facility] [place] and [place]. Controlled with medication. On flomax at baseline.. The patient previously had kidney stones whose composition w unknown. Laboratory investigations include no recent labs. 24 Hour urine evaluation none on file. Prior treatment(s) include 06/14 MET. Prior imaging includes 3/18 , a CT (computed tomography) scan of the abdomen/pelvis (stone protocol), showing radiodense stone(s), showing ureteral stone(s), on the right, 2-5 mm, hydronephrosis mild in severity 07/15 , a renal ultrasound, normal, no stones 01/14 , a renal ultrasound, showing no evidence of stones, multiple bilateral cysts 1-2 cm - 09/18 renal ultrasound bilateral cysts no evidence of stones - 08/19 renal ultrasound no evidence of stones Current therapeutic plan will be to continue with imaging surveillance [facility] Medical History Kidney stones Surgical hypoparathyroidism Sepsis BPH (benign prostatic hyperplasia) Urinary retention Spinal stenosis Surgical History H/O shoulder surgery Social History Alcohol intake: former Review of Systems Const Denies chills and Denies fever(s) Card Reports no additional complaints and Denies syncope Resp Denies cough GI Denies abdominal pain and Denies heartburn Reports as per HPI and Denies change in libido Neuro Denies syncope Psych Denies change in libido Endo Denies change in libido Physical Exam Const General: cooperative, healthy appearing, comfortable and no acute distress Orientation/consciousness: patient oriented x3 HEENT Face and sinus: Yes normal facial exam Mouth: moist mucous membranes Neck Neck: Yes normal visual inspection, Yes full ROM and Yes trachea midline Chest Chest palpation & inspection: normal inspection of the chest Resp Effort & Inspection: normal respiratory effort, able to speak in complete sentences and no respiratory distress GI Inspection: Yes normal to inspection Back/Spine/Pelvis Cervical Spine: normal cervical lordosis Thoracic/Lumbar Spine: thoracic and lumbar spine normal to inspection Skin General skin exam: no rashes or lesions noted Neuro General: patient oriented x3, gait normal, tone normal and moves all extremities Extrem General: Yes normal to inspection and Yes capillary refill normal Office Procedures Post Void Residual Post Residual Void Post Void Residual (PVR): 0 [id number] Void Residual by ultrasound Results AMB Urinalysis, Automated UA Leukoctes 0 Kinza/uL Last Edit by SHERWIN Taylor on 03/08/24 11:48 UA Nitrite Negative Last Edit by SHERWIN Taylor on 03/08/24 11:48 UA Urobilinogen 0.2 mg/dL Last Edit by SHERWIN Taylor on 03/08/24 11:4 8 UA Protein 0 mg/dL Last Edit by SHERWIN Taylor on 03/08/24 11:48 UA pH 6.0 Last Edit by Falguni Garcia CCM on 03/08/24 11:48 UA Blood 0 Lloyd/uL Last Edit by Falguni Garcia [facility] on 03/08/24 11:48 UA Specific Laurel 1.030 Last Edit by SHERWIN Taylor on 03/08/24 11: 48 UA Ketone Negative Last Edit by Falguni Garcia CCM on 03/08/24 11:48 UA Bilirubin 0 mg/dL Last Edit by SHERWIN Taylor on 03/08/24 11:48 UA Glucose 0 mg/dL Last Edit [facility] on 03/08/24 11:48 Results Reviewed Results Reviewed: Laboratory Last Values Urine pH (Auto) 6.0 03/08/24 11:48 Specific Laurel (Auto) 1.030 03/08/24 11:48 Urine Protein (Auto) 0 mg/dL 03/08/24 11:48 Glucose (UA)(Auto) 0 mg/dL 03/08/24 11:48 Urine Ketones (Auto) Negative 03/08/24 11:48 Urine Blood (Auto) 0 Lloyd/uL 03/08/24 11:48 Urine Nitrite (Auto) Negative 03/08/24 11:48 Urine Bilirubin (Auto) 0 mg/dL 03/08/24 11:48 Urine Urobilinogen (Auto) 0.2 mg/dL 03/08/24 11:48 Leukocyte Esterase (Auto) 0 Kinza/uL 03/08/24 11:48 Assessment & Plan Assessment & Plan (1) BPH w urinary obs/LUTS: Code(s): N40.1 - Benign prostatic hyperplasia with lower urinary tract symptoms; N13.8 - Other obstructive and reflux uropathy Category: Medical Plan Risks, benefits and alternatives to therapy were discussed. These include but are not limited to infection, bleeding, damage to local organs and tissues, need for further interventions. Anesthetic risks regarding cardiac arrhythmia, blood clots, and potential mortality were discussed. The patient understands the typical recovery time and the outpatient nature of the procedure. After consideration of these risks the patient gives full informed consent and they wish to move ahead with the procedure. GreenLight laser prostatectomy Orders: Orders AMB Urinalysis Automated 03/08/24 Z13.9 - Encounter for screening, unspecified Patient Instructions: Imaging studies, laboratory and physical exam results were discussed and reviewed in detail. No major barriers to patient understanding were identified. An opportunity to ask questions regarding the treatment plan was provided. All questions were answered. The patient expressed understanding and agreement with the above treatment plan. The patient is aware they should contact our office by phone for worsening of t heir current condition or the appearance of new urologic symptoms. Compliance is encouraged with any medications and followup testing that is ordered. It is a privilege to participate in the urologic care of your patient. If you have any questions or concerns regarding treatment for the above conditions, or other urologic issues, please do not hesitate to contact me. The office telephone contact is [phone]. This note is constructed using voice recognition software. While every effort has been made to ensure accuracy head miller errors may have been included. Yours sincerely, Dr Marco Arriola MD, MAHIN [facility] - Urology Providers of Expert, Compassionate Care for the Genitourinary System Coding Level of Care Code Est Pt Level 3 (59877) Diagnoses BPH w urinary obs/LUTS N40.1; N13.8 CPT Codes Post Residual Void - PVR CPT Code: 73510-Uula Void Residual by ultrasound ([id number])
== END 2024-03-08 12:44 | disposition home or self-care (01) ==
PROVIDERS: PCP Student in an Organized Health Care Education/Training Program; Visit Provider Urology
DX: N40.1 Benign prostatic hyperplasia with lower urinary tract symptoms (principal); N13.8 Other obstructive and reflux uropathy
CPT/HCPCS: 99213

== ENCOUNTER → 2024-03-08 11:31 | Outpatient (BNVA) | payer MEDICARE, SELFPAY | PROVIDERS: PCP Student in an Organized Health Care Education/Training Program; Visit Provider Urology | DX: N40.1 Benign prostatic hyperplasia with lower urinary tract symptoms (principal); N13.8 Other obstructive and reflux uropathy | CPT/HCPCS: 51798; 81003; 99212 ==

== ENCOUNTER 2024-03-13 10:35 | Inpatient (IN) | payer MEDICARE, SELFPAY ==
[2024-03-13] VITALS (9 sets, daily range): BP systolic 109–132; BP diastolic 48–76; PULSE 82–105; RESP 16–27; TEMP 36.4–38; O2SAT 93–98; BMI 25.9
--- NOTE | ~2024-03-13 | CT_ITS ---
EXAMINATION: CT ABDOMEN AND PELVIS WITHOUT CONTRAST CLINICAL INFORMATION: Inability to void COMPARISON: Ultrasound 08/28/2022. CT abdomen 06/06/2017 TECHNIQUE: Multidetector volumetric imaging was performed from the superior aspect of the liver through the pubic symphysis. Sagittal and coronal reformatted images were obtained on the technologist's workstation. This CT examination was performed using dose optimization techniques as appropriate, variously including the following: *Automated exposure control *Adjustment of mA and/or kV according to patient size (this includes techniques or standardized protocols for targeted exams where dose is matched to indication/reason for exam; i.e. extremities or head) *Use of iterative reconstruction technique DLP: 608 mGy-cm FINDINGS: LUNG BASES: Unchanged 2 mm nodule right lower lobe. LIVER, GALLBLADDER, AND BILIARY TREE: The liver is normal in size, shape, and attenuation. No focal hepatic lesion or biliary ductal dilatation is present. The gallbladder is unremarkable with no evidence of radiopaque gallstones, gallbladder wall thickening, or obvious pericholecystic inflammatory changes. PANCREAS: Unremarkable. No acute inflammatory changes. SPLEEN: Unremarkable. ADRENAL GLANDS: Unremarkable. KIDNEYS AND URETERS: 2.2 cm right renal cyst. No renal or ureteral calculi. No evidence of hydroureteronephrosis. BLADDER: Nondistended, reliably evaluated. No radiodense calculi appreciated in the nondistended bladder, evaluation is limited. GASTROINTESTINAL TRACT: Colonic diverticulosis. No evidence of definite diverticulitis. Moderate volume stool in the large colon. Stomach is nondistended. No dilated small bowel loops. Normal appendix. No free fluid. No free air. ABDOMINAL WALL: No significant hernia is appreciated. LYMPH NODES: No lymphadenopathy seen. VASCULAR: Normal caliber aorta. PELVIC VISCERA: Enlarged prostate measuring 6.7 cm transverse. OSSEOUS STRUCTURES: No acute osseous abnormality. No destructive bony lesion seen. CT/CT abdomen pelvis wo IV con IMPRESSION: 1. No evidence of renal or ureteral calculi. No evidence of hydroureteronephrosis. 2. Enlarged prostate. 3. Colonic diverticulosis without evidence of definite diverticulitis. Fleischner guidelines were followed. Electronically signed by: Joseph Ayala MD 03/13/2024 01:49 PM EST
[2024-03-13 11:06] LABS: Hemoglobin 13.5 g/dl (14.0-18.0); Mean Corpuscular HGB Conc 32.1 g/dl (31.0-36.0); Mean Corpuscular Hemoglobin 24.1 pg (27.0-33.0); Mean Corpuscular Volume 74.9 fL (80.0-98.0); Mean Platelet Volume 10.6 fL (9.4-12.4); Platelet Count 209 X10*3/uL (160-400); Red Blood Count 5.61 X10*6/uL (4.60-5.80); Red Cell Distribution Width 12.8 % (11.0-16.0); WBC ABN SCTR FOR CBC 1; White Blood Count 21.5 X10*3/uL (4.8-10.8)
--- NOTE | 2024-03-13 11:12 | ED.MALEGU ---
HPI - Male Genitourinary General Chief complaint: Urogenital-Male Stated complaint: Trouble urinating Time Seen by Provider: 03/13/24 11:09 Source: patient Mode of arrival: ambulatory Limitations: no limitations History of Present Illness ED Provider: MAISHA Bates HPI Narrative: This is a 73-year-old male history of kidney stones, spinal stenosis, surgical hypoparathyroidism, urinary retention, BPH presenting to the emergency department with complaints of fatigue, malaise, myalgias and inability to void unless he straight caths himself. Patient reports he intermittently catheterizes himself typically once a day at the end of the day if needed however he is found himself frequently catheterizing himself and he feels like he is unable to void. He reports muscle aches and pains overall feeling unwell. No sick contacts. Denies fevers, chills, chest pain, shortness of breath, headache, vision changes, flank pain, saddle anesthesias, back pain, numbness, tingling, weakness Related Data Home Medications ?Medication ?Instructions ?Recorded ?Confirmed ketoconazole 2 % topical cream 1 appl topical BID 03/13/24 Previous Rx's ?Medication ?Instructions ?Recorded tamsulosin 0.4 mg capsule 0.4 mg PO BEDTIME 90 days #90 caps 09/08/23 methenamine hippurate 1 gram tablet 1 g PO DAILY 90 days #90 tabs 11/20/23 Allergies Allergy/AdvReac Type Severity Reaction Status Date / Time nut - unspecified [NUTS] Allergy Mild THROAT Verified 03/13/24 10:43 RODRIGUEZ pollen extracts [POLLEN] Allergy Mild Nasal Verified 03/13/24 10:43 congestion GRASS Allergy Mild Nasal Uncoded 03/08/24 11:35 congestion Review of Systems Review of Systems: Yes all other systems are reviewed and are negative PMFSH Past Medical History Attestation statement: The following information was validated with the patient. Source: old records reviewed and nursing notes reviewed Medical History Kidney stones Surgical hypoparathyroidism Sepsis BPH (benign prostatic hyperplasia) Urinary retention Spinal stenosis Surgical History H/O shoulder surgery Social History Social History Alcohol intake: former Smoked in Last 30 Days: No Use of substances other than those prescribed or required for medical reasons: No Advance Directives: No Advance Directives Information Provided: Yes Do you have a plan to hurt others: No Plan Physical Exam Vital Signs: Vital Signs: Last Vital Signs Temp 98.4 F 03/13/24 13:07 Pulse 82 03/13/24 13:38 Resp 18 03/13/24 13:07 BP 109/76 03/13/24 13:38 Pulse Ox 98 03/13/24 13:38 O2 Del Method Room Air 03/13/24 13:38 BMI result Body Mass Index 25.9 vss Appearance: Alert.? Oriented X3.? No acute distress.? Head: Normocephalic, atraumatic, no step-offs or deformities Eyes: Pupils equal, round and reactive to light.? CVS: Normal heart rate and rhythm.? Pulses normal.? Respiratory: No respiratory distress.? Breath sounds normal.? Abdomen: Soft and nontender.? Skin: Skin warm and dry.? Normal skin color.? Normal skin turgor.? Extremities: No lower extremity edema.? No calf ttp. 5/5 strength to bilateral upper and lower extremities Back: No CVA tenderness bilaterally Neuro: Oriented X 3.? No motor deficit.? No sensory deficit. CN 2-12 intact Course Reevaluation(s) Reevaluation #1: CBC with leukocytosis 21.5. Time: 11:15 Reevaluation #2: Chemistry with slight kidney injury, IV hydration initiated. Will also give IV antibiotics as infection is suspected at this time. Lactic acid negative. Time: 11:37 Reevaluation #3: 10% bandemia, making infection likely. Patient already receiving IV antibiotics and fluids. CT scan pending. Time: 12:03 Additional Reevaluation(s): CT scan still pending. Plan hospital admission 1356 CT abdomen pelvis no evidence of renal or ureteral calculi no evidence of hydroureter nephrosis and large prostate. Medications Administered Discontinued Medications Generic Name Dose Route Start Last Admin Trade Name Freq PRN Reason Stop Dose Admin Ceftriaxone Sodium 1 gm 03/13/24 11:10 03/13/24 11:33 Ceftriaxone Sodium 1 Gm Vial IVPUSH 03/13/24 11:11 1 gm ONCE ONE Administration Sodium Chloride 2,595 mls @ 2,595 mls/hr 03/13/24 11:37 03/13/24 11:50 Ns 30 ml/kg infuse over 1 hr (2595 ml) 03/13/24 12:36 2,595 mls/hr IV Administration .Q1H STA Piperacillin Sod/Tazobactam 50 mls @ 100 mls/hr 03/13/24 13:18 03/13/24 13:33 Sod 3.375 gm/ Sodium Chloride IV 03/13/24 13:47 100 mls/hr ONCE ONE Administration Ketorolac Tromethamine 15 mg 03/13/24 11:10 03/13/24 11:30 Ketorolac Tromethamine 15 Mg/Ml Vial IVPUSH 03/13/24 11:11 15 mg ONCE ONE Administration Medical Decision Making Medical Decision Making [facility] Narrative: 73-year-old male presents with inability to void, fatigue, malaise, myalgias Physical exam benign however patient does appear uncomfortable History and physical exam concerning for obstructive uropathy versus BPH. Unlikely cauda equina, cord compression. Will rule out UTI and cystitis. Plan labs, imaging, urine. Differential Diagnosis Differential Diagnoses: The differential diagnosis associated with the presentation includes (History and physical exam concerning for obstructive uropathy versus BPH. Unlikely cauda equina, cord compression. Will rule out UTI and cystitis.) Admission/Observation Consideration of admission/observation: Escalation of care including admission/observation considered Consult Healthcare Provider Management of the patient was discussed with: [facility] Specialist Lab Data [facility] Lab Attestation statement: I reviewed the patient's lab results. 03/13/24 11:01 03/13/24 11:01 Labs: Lab Results 03/13/24 03/13/24 03/13/24 Range/Units 11:01 11:32 11:57 WBC 21.5 H (4.8-10.8) X10*3/uL RBC 5.61 (4.60-5.80) X10*6/uL Hgb 13.5 L (14.0-18.0) g/dl Hct 42.0 (42.0-52.0) % MCV 74.9 L (80.0-98.0) fL MCH 24.1 L (27.0-33.0) pg MCHC 32.1 (31.0-36.0) g/dl RDW 12.8 (11.0-16.0) % Plt Count 209 (160-400) X10*3/uL MPV 10.6 (9.4-12.4) fL Immature Gran % (Auto) Cancelled Neut % (Auto) Cancelled Lymph % (Auto) Cancelled [place] % (Auto) Cancelled Eos % (Auto) Cancelled Baso % (Auto) Cancelled Lymph # (Auto) Cancelled [place] # (Auto) Cancelled Eos # (Auto) Cancelled Baso # (Auto) Cancelled Abs Immat Gran (auto) Cancelled Absolute Neuts (auto) Cancelled Absolute Nucleated RBC 0.000 (0.0-0.012) X10*3/uL Nucleated RBC % (auto) 0.0 (0.0-0.2) /100WBC Neutrophils % (Manual) 68 (45-73) % Band Neutrophils % 10 H (3-5) % Lymphocytes % (Manual) 8 L (20-40) % Atypical Lymphs % (Man) 3 (0-6) % Monocytes % (Manual) 11 (2-11) % Abs Neuts (Manual) 16.8 H (2.0-8.3) X10*3/uL Lymphocytes # (Manual) 1.7 (1.2-4.9) X10*3/uL Atyp Lymphs # (Manual) 0.6 x10*3/uL Monocytes # (Manual) 2.4 H (0.1-1.2) X10*3/uL Toxic Vacuolation PRESENT Platelet Estimate NORMAL (NORMAL) Large Platelets PRESENT Plt Morphology Comment NOTED RBC Morphology NOTED Microcytosis 1+ (5-14) /OIF Sodium 138 (135-145) mmol/L Potassium 4.4 (3.3-5.1) mmol/L Chloride 102 (96-108) mmol/L Carbon Dioxide 25 (22-29) mmol/L Anion Gap 15 (12-20) BUN 17 H (9-16) mg/dL Creatinine 1.78 H (0.5-1.4) mg/dL Estim Creat Clear Calc 41.1 Estimated GFR 38 Random Glucose 136 H (60-115) mg/dL Lactic Acid 1.4 (0.5-2.0) mmol/L Calcium 9.5 (8.4-10.2) mg/dL Urine Color Dark Yellow Urine Appearance Cloudy Urine pH 5.5 (5.0-9.0) Ur Specific [place] 1.015 (1.005-1.025) Urine Protein 30 (1+) H (Neg-Trace) mg/dL Urine Glucose (UA) Negative (Negative) mg/dL Urine Ketones Negative (Negative) mg/dL Urine Blood Moderate (2+) H (Negative) Urine Nitrite Positive H (Negative) Ur Leukocyte Esterase Large (3+) H (Negative) Urine RBC >20 H (0-2) /HPF Urine WBC >50 H (0-5) /HPF Ur Squamous Epith Cells 0-2 (0-2) /HPF Urine Bacteria 4+ (None Seen) Hyaline Casts 0-2 (0-2) /LPF Independent Interpretation I performed an independent interpretation of an: Ultrasound and CT Scan (CT/CT abdomen pelvis wo IV con IMPRESSION: 1. No evidence of renal or ureteral calculi. No evidence of hydroureteronephrosis. 2. Enlarged prostate. 3. Colonic diverticulosis without evidence of definite diverticulitis. Fleischner guidelines were followed.) Radiology Impression Discussion of test interpretation with radiology: I have reviewed the radiologist's reading. External Record Review External record reviewed: Inpatient record, Office record, Outpatient record, Prior outpatient labs, Prior outpatient radiology, Primary care record and Outside ED record Prescription Management I considered prescription management with: Antibiotic Chronic Conditions Patient?s care impacted by: Other (see hpi ) Critical Care Time Critical Care Time Critical Care Time: Yes Total Critical Care Time: 45 Attestation: I attest to this time spent taking care of the patient, obtaining history, physical, reviewing labs, imaging, speaking to my attending, speaking to specialist. Discharge Plan Discharge Clinical Impression: Urinary tract infection, BPH with urinary obstruction Patient Disposition: Admitted As Inpatient
[2024-03-13] MEDS: Ketorolac Tromethamine 15 MG/ML VIAL IVPUSH (11:30)
[2024-03-13] MEDS: cefTRIAXone sodium 1 GM VIAL IVPUSH (11:33)
[2024-03-13 11:35] LABS: Anion Gap 15 (12-20); Blood Urea Nitrogen 17 mg/dL (9-16); Calcium 9.5 mg/dL (8.4-10.2); Carbon Dioxide 25 mmol/L (22-29); Chloride 102 mmol/L (96-108); Creatinine Clr Calc Pharmacy 41.1; Estimated Glomerular Filt Rate 38; Glucose Random 136 mg/dL (60-115); Potassium 4.4 mmol/L (3.3-5.1); Sodium 138 mmol/L (135-145)
[2024-03-13] MEDS: SODIUM CHLORIDE 2595 ML IV (11:50)
[2024-03-13 11:52] LABS: Lactic Acid 1.4 mmol/L (0.5-2.0)
[2024-03-13 12:01] LABS: Neutrophils Percent Manual 68 % (45-73)
[2024-03-13 12:04] LABS: Atypical Lymph Absolute Manual 0.6 x10*3/uL; Atypical Lymphs Percent Manual 3 % (0-6); Band Neutrophils Percent 10 % (3-5); Lymphocytes Absolute Manual 1.7 X10*3/uL (1.2-4.9); Lymphocytes Percent Manual 8 % (20-40); Monocytes Absolute Manual 2.4 X10*3/uL (0.1-1.2); Monocytes Percent Manual 11 % (2-11); Neutrophils Absolute Manual 16.8 X10*3/uL (2.0-8.3)
[2024-03-13 12:05] LABS: Large Platelet PRESENT; Microcytosis 1+ (5-14) /OIF; Platelet Estimate NORMAL (NORMAL); Platelet Morphology Comment NOTED; RBC Morphology NOTED; Toxic Vacuolation PRESENT
[2024-03-13 12:13] LABS: Appearance Urine Cloudy; Glucose Urine UA Negative (Negative); Leukocyte Esterase Urine Large (3+) (Negative); Nitrite Urine Positive (Negative); PH 5.5 (5.0-9.0); Specific Gravity - Urine 1.015 (1.005-1.025); UMIC TRIGGER UACC YES; Urine Blood Moderate (2+) (Negative); Urine Ketones Negative (Negative); Urine Protein 30 (1+) mg/dL (Neg-Trace)
[2024-03-13 12:14] LABS: Bacteria Urine 4+ (None Seen); Color Urine Dark Yellow; Hyaline Casts Urine 0-2 /LPF (0-2); RBC Urine >20 /HPF (0-2); Squamous Epithelial Cell Urine 0-2 /HPF (0-2); UACC Culture Trigger YES; WBC Urine >50 /HPF (0-5)
[2024-03-13] MEDS: Piperacillin Sodium/Tazobactam 3.375 GM in 0.9 % Sodium Chloride 50 ML IV ×2 (13:33→19:04)
--- NOTE | 2024-03-13 13:49 | P.HPHOSP_ITS ---
History of Present Illness Date of Service: 03/13/24 Chief Complaint: urinary retention The patient is a 73-year-old male with a past medical history of BPH and neurogenic bladder who does occasional CIC presents to the ED with complaints of urinary retention ongoing for about the last several days. The patient reports that typically he is able to urinate on his own and does have some urinary retention which he self treats with straight catheterization. He typically has to do this infrequently, however since Thursday he has been unable to void on his own requiring multiple straight caths and hence he presented to the ED today. In the emergency room the patient was noted to have a UA suggestive of urinary tract infection. A CT scan of the abdomen and pelvis has been completed and is pending read. He also was noted to have acute kidney [place] [id number]. Given the constellation of these findings a diagnosis of sepsis secondary to urinary tract infection has been made and the patient will now be admitted for further care. The patient is seen and examined in the ED around 130p. Discussed with him regarding Kelly catheter insertion which he has agreed to at this time. He does report some left-sided flank pain but states that this is different than his prior episodes of nephrolithiasis. Review of Systems 2 Review of Systems: Negative except HPI/interval history. [facility] Medical History (Updated 03/13/24 @ 13:57 by Angel Holcomb MD) Kidney stones Surgical hypoparathyroidism BPH (benign prostatic hyperplasia) Urinary retention Spinal stenosis Surgical History H/O shoulder surgery Social History Alcohol intake: former Smoked in Last 30 Days: No Use of substances other than those prescribed or required for medical reasons: No Advance Directives: No Advance Directives Information Provided: Yes Do you have a plan to hurt others: No Plan Meds Allergies Allergy/AdvReac Type Severity Reaction Status Date / Time nut - unspecified [NUTS] Allergy Mild THROAT Verified 03/13/24 10:43 RODRIGUEZ pollen extracts [POLLEN] Allergy Mild Nasal Verified 03/13/24 10:43 congestion GRASS Allergy Mild Nasal Uncoded 03/08/24 11:35 congestion Active Medications: Current Medications Acetaminophen (Acetaminophen 325 Mg Tablet) 650 mg PO Q6H PRN PRN Reason: Pain, Mild (Pain Scale 1-3), fever or headache Calcium Carbonate (Calcium Carbonate 750 Mg Tab.Chew) 750 mg PO Q4H PRN PRN Reason: Heartburn Enoxaparin Sodium (Enoxaparin Sodium 40 Mg/0.4 Ml Syringe) 40 mg SUBCUT Q24H MARION Magnesium Hydroxide (Milk Of Magnesia 30 Ml Oral.Susp) 30 ml PO DAILY PRN PRN Reason: Constipation Melatonin (Melatonin 3 Mg Tablet) 6 mg PO BEDTIME PRN PRN Reason: Insomnia Sodium Chloride (0.9 % Sodium Chloride Flush 3 Ml Syringe) 3 ml IVFLUSH QSHIFT MARION Tamsulosin HCl (Tamsulosin Hcl 0.4 Mg Capsule) 0.4 mg PO ONCE ONE Stop: 03/13/24 13:48 Home Medications ?Medication ?Instructions ?Recorded ?Confirmed ?Last Taken ?Type ketoconazole 2 % topical cream 1 appl topical BID 03/13/24 Unknown History Physical Exam 2 Vital Signs and Narrative: Vital Signs: Last Vital Signs Temp 98.4 F 03/13/24 13:07 Pulse 82 03/13/24 13:38 Resp 18 03/13/24 13:07 BP 109/76 03/13/24 13:38 Pulse Ox 98 03/13/24 13:38 O2 Del Method Room Air 03/13/24 13:38 BMI result Body Mass Index 25.9 Const: Other: Constitutional - Awake and Alert, No apparent distress Eyes - PERRLA, EOMI Cardiovascular - S1S2, RRR, No edema Respiratory - Normal lung expansion, Normal respiratory effort, No respiratory distress, CTA bilaterally Gastrointestinal - NT / ND; +BS; No rebound or guarding - No CVA tenderness Extremities - no calf tenderness bilaterally, no swelling Musculoskeletal - Normal inspection, normal ROM Skin - Warm/Dry Neurological - Alert & oriented x3, No focal deficit Psychological - Appropriate affect Results Labs 03/13/24 11:01 03/13/24 11:01 Labs: Laboratory Results - last 24 hr 03/13/24 03/13/24 03/13/24 11:01 11:32 11:57 MCV 74.9 L MCH 24.1 L MCHC 32.1 RDW 12.8 Plt Count 209 MPV 10.6 Immature Gran % (Auto) Cancelled Neut % (Auto) Cancelled Lymph % (Auto) Cancelled [place] % (Auto) Cancelled Eos % (Auto) Cancelled Baso % (Auto) Cancelled Lymph # (Auto) Cancelled [place] # (Auto) Cancelled Eos # (Auto) Cancelled Baso # (Auto) Cancelled Abs Immat Gran (auto) Cancelled Absolute Neuts (auto) Cancelled Absolute Nucleated RBC 0.000 Nucleated RBC % (auto) 0.0 Neutrophils % (Manual) 68 Band Neutrophils % 10 H Lymphocytes % (Manual) 8 L Atypical Lymphs % (Man) 3 Monocytes % (Manual) 11 Abs Neuts (Manual) 16.8 H Lymphocytes # (Manual) 1.7 Atyp Lymphs # (Manual) 0.6 Monocytes # (Manual) 2.4 H Toxic Vacuolation PRESENT Platelet Estimate NORMAL Large Platelets PRESENT Plt Morphology Comment NOTED RBC Morphology NOTED Microcytosis 1+ (5-14) Anion Gap 15 Estim Creat Clear Calc 41.1 Estimated GFR 38 Random Glucose 136 H Lactic Acid 1.4 Calcium 9.5 Urine Color Dark Yellow Urine Appearance Cloudy Urine pH 5.5 Ur Specific [place] 1.015 Urine Protein 30 (1+) H Urine Glucose (UA) Negative Urine Ketones Negative Urine Blood Moderate (2+) H Urine Nitrite Positive H Ur Leukocyte Esterase Large (3+) H Urine RBC >20 H Urine WBC >50 H Ur Squamous Epith Cells 0-2 Urine Bacteria 4+ Hyaline Casts 0-2 Assessment and Plan (1) Urinary tract infection: Status: Acute (2) Sepsis: Status: Acute Plan 73 yo M with BPH, neurogenic bladder and urinary retention presenting with rention for several days requiring CIC. His work up in the ED reveals UA suggestive for UTI with leukocytosis and tachycardia -- consistent with sepsis. Also had some STEPHANIE. 1. Sepsis seconary to UTI in the setting of chronic urinary retention and intermittent CIC previous cultures show enterococcus sensitive to amp -- will treat with iv zosyn follow culture data 2. Stage 1 STEPHANIE baseline SCr around 1.2 - now presenting nearly 1.8 likely post-obstructive -- pt agreeable on kelly placement CT pending -- will f/u to eval for stones may need urology consult pending CT scan 3. BPH flomax Full Code DVT pptx - lovenox Pt with sepsis secondary to source, complicated by urinary retention and STEPHANIE therefore expected to require at least 2 midnights in the hospital for treatment. Hence, will be admitted as inpt. Quality Stroke Does the patient have a stroke diagnosis?: No VTE Prior VTE?: No VTE Risk Level:: Medical - moderate - high VTE Device Contraindication: N/A - Device Ordered VTE Drug Contraindication: N/A - Med Ordered
[2024-03-13] MEDS: Enoxaparin Sodium 40 MG/0.4 ML SYRINGE SUBCUT (14:30)
[2024-03-13] MEDS: Tamsulosin HCL 0.4 MG CAPSULE PO (14:30)
--- NOTE | 2024-03-13 14:40 | PHA.MEDREC ---
Pharmacy Consult ? Medication Reconciliation Pharmacy has completed the medication reconciliation. Spoke to pt to confirm meds.
[2024-03-13] MEDS: 0.9 % Sodium Chloride Flush 3 ML SYRINGE IVFLUSH (17:26)
--- NOTE | 2024-03-13 19:14 | PC.NURSE ---
This RN assumed pt care @ 1900. Pt a&ox4, no signs of distress. Pt resting quietly in bed, watching tv. Pt medicated per may Pt requested and given a cup. Plan of care ongoing.
[2024-03-13] MEDS: Acetaminophen 325 MG TABLET 650 MG PO (19:50)
[2024-03-14] MEDS: 0.9 % Sodium Chloride Flush 3 ML SYRINGE IVFLUSH ×2 (01:00→07:42)
[2024-03-14] MEDS: Piperacillin Sodium/Tazobactam 3.375 GM in 0.9 % Sodium Chloride 50 ML IV ×4 (01:03→18:07)
--- NOTE | 2024-03-14 01:09 | PC.NURSE ---
Pt medicated per [facility] Plan of care ongoing.
[2024-03-14 01:11] VITALS: BP 118/63; PULSE 76; RESP 12; TEMP 36.8; O2SAT 96
[2024-03-14 05:10] LABS: Hematocrit 36.5 % (42.0-52.0); Hemoglobin 11.7 g/dl (14.0-18.0); Mean Corpuscular HGB Conc 32.1 g/dl (31.0-36.0); Mean Corpuscular Volume 74.8 fL (80.0-98.0); Mean Platelet Volume 10.6 fL (9.4-12.4); Platelet Count 166 X10*3/uL (160-400); Red Blood Count 4.88 X10*6/uL (4.60-5.80); Red Cell Distribution Width 12.6 % (11.0-16.0); White Blood Count 16.6 X10*3/uL (4.8-10.8)
[2024-03-14 05:24] LABS: Anion Gap 14 (12-20); Blood Urea Nitrogen 18 mg/dL (9-16); Calcium 8.5 mg/dL (8.4-10.2); Carbon Dioxide 20 mmol/L (22-29); Chloride 108 mmol/L (96-108); Creatinine Clr Calc Pharmacy 43.1; Estimated Glomerular Filt Rate 40; Glucose Random 114 mg/dL (60-115); Potassium 4.4 mmol/L (3.3-5.1); Sodium 138 mmol/L (135-145)
[2024-03-14 06:08] VITALS: BP 115/69; PULSE 85; RESP 18; TEMP 37.2; O2SAT 99
[2024-03-14 08:00] VITALS: BP 120/70; PULSE 81; RESP 16; TEMP 37.1; O2SAT 99
[2024-03-14] MEDS: Lactated Ringers 1,000 ML 100 ML IVCONT ×2 (08:08→18:07)
[2024-03-14 08:33] VITALS: BP 128/60; PULSE 98; RESP 18; TEMP 36.7; O2SAT 92
[2024-03-14] MEDS: Magnesium Oxide 400 MG TABLET PO (08:42)
--- NOTE | 2024-03-14 09:31 | HO.PM.IMPN ---
Subjective Subjective Date of Service: 03/14/24 Interval History: seen and examined no complaints has questions reguarding CIC and catheter Review of Systems Negative except HPI/interval history. Physical Exam Vital Signs: Vital Signs: Last Vital Signs Temp 98.1 F 03/14/24 08:33 Pulse 98 03/14/24 08:33 Resp 18 03/14/24 08:33 BP 128/60 03/14/24 08:33 Pulse Ox 92 03/14/24 08:33 O2 Del Method Room Air 03/14/24 08:33 BMI result Body Mass Index 25.9 Const: Other: General - no acute distress, appears comfortable Cardiovascular - regular rate and rhythm, S1-S2 Lungs - normal respiratory effort, clear to auscultation bilaterally, no wheezing Abdomen - soft, nontender, no rebound or guarding - clear urine Extremities - no edema bilaterally Neuro - awake and alert, no focal deficits Objective Data Active Medications Acetaminophen (Acetaminophen 325 Mg Tablet) 650 mg PO Q6H PRN PRN Reason: Pain, Mild (Pain Scale 1-3), fever or headache Last Admin: 03/13/24 19:50 Dose: 650 mg Documented By: CHI Calcium Carbonate (Calcium Carbonate 750 Mg Tab.Chew) 750 mg PO Q4H PRN PRN Reason: Heartburn Enoxaparin Sodium (Enoxaparin Sodium 40 Mg/0.4 Ml Syringe) 40 mg SUBCUT Q24H [facility] Last Admin: 03/13/24 14:30 Dose: 40 mg Documented By: NATE Piperacillin Sod/Tazobactam (Sod 3.375 gm/ Sodium Chloride) 50 mls @ 100 mls/hr IV Q6H [facility] Last Infusion: 03/14/24 08:44 Dose: Infused Documented By: MAN Lactated Ringer's (Lr) 1,000 mls @ 100 mls/hr IVCONT .Q10H [facility] Stop: 03/15/24 03:44 Last Admin: 03/14/24 08:08 Dose: 100 mls/hr Documented By: KHOI Magnesium Hydroxide (Milk Of Magnesia 30 Ml Oral.Susp) 30 ml PO DAILY PRN PRN Reason: Constipation Magnesium Oxide (Magnesium Oxide 400 Mg Tablet) 400 mg PO DAILY [facility] Last Admin: 03/14/24 08:42 Dose: 400 mg Documented By: MAN Melatonin (Melatonin 3 Mg Tablet) 6 mg PO BEDTIME PRN PRN Reason: Insomnia Sodium Chloride (0.9 % Sodium Chloride Flush 3 Ml Syringe) 3 ml IVFLUSH QSHIFT [facility] Last Admin: 03/14/24 07:42 Dose: 3 ml Documented By: KHOI Tamsulosin HCl (Tamsulosin Hcl 0.4 Mg Capsule) 0.4 mg PO BEDTIME [facility] Labs 03/14/24 05:05 03/14/24 05:05 Labs: Laboratory Results - last 24 hr 03/13/24 03/13/24 03/13/24 11:01 11:32 11:57 MCV 74.9 L MCH 24.1 L MCHC 32.1 RDW 12.8 Plt Count 209 MPV 10.6 Immature Gran % (Auto) Cancelled Neut % (Auto) Cancelled Lymph % (Auto) Cancelled [place] % (Auto) Cancelled Eos % (Auto) Cancelled Baso % (Auto) Cancelled Lymph # (Auto) Cancelled [place] # (Auto) Cancelled Eos # (Auto) Cancelled Baso # (Auto) Cancelled Abs Immat Gran (auto) Cancelled Absolute Neuts (auto) Cancelled Absolute Nucleated RBC 0.000 Nucleated RBC % (auto) 0.0 Neutrophils % (Manual) 68 Band Neutrophils % 10 H Lymphocytes % (Manual) 8 L Atypical Lymphs % (Man) 3 Monocytes % (Manual) 11 Abs Neuts (Manual) 16.8 H Lymphocytes # (Manual) 1.7 Atyp Lymphs # (Manual) 0.6 Monocytes # (Manual) 2.4 H Toxic Vacuolation PRESENT Platelet Estimate NORMAL Large Platelets PRESENT Plt Morphology Comment NOTED RBC Morphology NOTED Microcytosis 1+ (5-14) Anion Gap 15 Estim Creat Clear Calc 41.1 Estimated GFR 38 Random Glucose 136 H Lactic Acid 1.4 Calcium 9.5 Urine Color Dark Yellow Urine Appearance Cloudy Urine pH 5.5 Ur Specific [place] 1.015 Urine Protein 30 (1+) H Urine Glucose (UA) Negative Urine Ketones Negative Urine Blood Moderate (2+) H Urine Nitrite Positive H Ur Leukocyte Esterase Large (3+) H Urine RBC >20 H Urine WBC >50 H Ur Squamous Epith Cells 0-2 Urine Bacteria 4+ Hyaline Casts 0-2 03/14/24 05:05 MCV 74.8 L MCH 24.0 L MCHC 32.1 RDW 12.6 Plt Count 166 MPV 10.6 Immature Gran % (Auto) Neut % (Auto) Lymph % (Auto) [place] % (Auto) Eos % (Auto) Baso % (Auto) Lymph # (Auto) [place] # (Auto) Eos # (Auto) Baso # (Auto) Abs Immat Gran (auto) Absolute Neuts (auto) Absolute Nucleated RBC 0.000 Nucleated RBC % (auto) 0.0 Neutrophils % (Manual) Band Neutrophils % Lymphocytes % (Manual) Atypical Lymphs % (Man) Monocytes % (Manual) Abs Neuts (Manual) Lymphocytes # (Manual) Atyp Lymphs # (Manual) Monocytes # (Manual) Toxic Vacuolation Platelet Estimate Large Platelets Plt Morphology Comment RBC Morphology Microcytosis Anion Gap 14 Estim Creat Clear Calc 43.1 Estimated GFR 40 Random Glucose 114 Lactic Acid Calcium 8.5 D Urine Color Urine Appearance Urine pH Ur Specific [place] Urine Protein Urine Glucose (UA) Urine Ketones Urine Blood Urine Nitrite Ur Leukocyte Esterase Urine RBC Urine WBC Ur Squamous Epith Cells Urine Bacteria Hyaline Casts Assessment and Plan (1) Sepsis: Status: Acute (2) Urinary tract infection: Status: Acute Plan 73 yo M with BPH, neurogenic bladder and urinary retention presenting with rention for several days requiring CIC. His work up in the ED reveals UA suggestive for UTI with leukocytosis and tachycardia -- consistent with sepsis. Also had some STEPHANIE. 1. Sepsis seconary to UTI in the setting of chronic urinary retention and intermittent CIC previous cultures show enterococcus sensitive to amp continue zosyn - day #2 sepsis improving 2. Stage 1 STEPHANIE baseline SCr around 1.2 - now presenting nearly 1.8 likely post-obstructive -- pt agreeable on kelly placement likey from retention + sepsis SCr has not improved as of yet -- will give IVF x 24 hours 3. BPH flomax Full Code DVT pptx - lovenox reason for continued hospitalization: on going treatment of sepsis/UTI with persistent STEPHANIE Quality Stroke Does the patient have a stroke diagnosis?: No VTE Prior VTE?: No VTE Risk Level:: Medical - moderate - high VTE Device Contraindication: N/A - Device Ordered VTE Drug Contraindication: N/A - Med Ordered
--- NOTE | 2024-03-14 09:45 | MHC.CM.PN ---
pt lives w/ a friend he is independent has his own ride home dc plan home no servies
--- NOTE | 2024-03-14 12:28 | MHC.CM.PN ---
PT LIVES W/A FRIEND HAS OWN RIDE HOME HAD NO SERVICES DC PLAN HOME NO SERVICES
[2024-03-14] MEDS: Enoxaparin Sodium 40 MG/0.4 ML SYRINGE SUBCUT (12:54)
[2024-03-14 15:20] VITALS: BP 136/70; PULSE 97; RESP 17; TEMP 37.3; O2SAT 96
[2024-03-14 20:00] VITALS: BP 134/66; PULSE 99; RESP 17; TEMP 37.4; O2SAT 96
[2024-03-14] MEDS: Tamsulosin HCL 0.4 MG CAPSULE PO (20:33)
[2024-03-15] MEDS: Piperacillin Sodium/Tazobactam 3.375 GM in 0.9 % Sodium Chloride 50 ML IV ×2 (00:25→06:59)
[2024-03-15] MEDS: 0.9 % Sodium Chloride Flush 3 ML SYRINGE IVFLUSH ×2 (00:32→06:56)
[2024-03-15 04:00] VITALS: BP 130/70; PULSE 92; RESP 17; TEMP 36.3; O2SAT 97
[2024-03-15 06:16] LABS: Hemoglobin 11.2 g/dl (14.0-18.0); Mean Corpuscular HGB Conc 32.9 g/dl (31.0-36.0); Mean Corpuscular Hemoglobin 24.2 pg (27.0-33.0); Mean Corpuscular Volume 73.4 fL (80.0-98.0); Mean Platelet Volume 11.3 fL (9.4-12.4); Platelet Count 177 X10*3/uL (160-400); Red Blood Count 4.63 X10*6/uL (4.60-5.80); Red Cell Distribution Width 12.7 % (11.0-16.0); White Blood Count 7.8 X10*3/uL (4.8-10.8)
[2024-03-15 06:36] LABS: Anion Gap 12 (12-20); Blood Urea Nitrogen 13 mg/dL (9-16); Calcium 8.7 mg/dL (8.4-10.2); Carbon Dioxide 24 mmol/L (22-29); Chloride 105 mmol/L (96-108); Creatinine Clr Calc Pharmacy 45.2; Estimated Glomerular Filt Rate 42; Glucose Random 110 mg/dL (60-115); Potassium 4.1 mmol/L (3.3-5.1); Sodium 137 mmol/L (135-145)
[2024-03-15] MEDS: Acetaminophen 325 MG TABLET 650 MG PO (07:01)
[2024-03-15] MEDS: Magnesium Oxide 400 MG TABLET PO (07:01)
[2024-03-15 07:46] VITALS: BP 118/61; PULSE 88; RESP 16; TEMP 36.4; O2SAT 94
[2024-03-15 08:12] VITALS: BP 131/61; PULSE 88; RESP 18; TEMP 36.7; O2SAT 94
--- NOTE | 2024-03-15 09:20 | PM.DS ---
DS: Providers Provider Date of Service: 03/15/24 Date of admission: 03/13/24 13:45 Primary care physician: Elizabeth Hicks MD DS: Diagnosis Discharge Diagnosis (1) Sepsis: Status: Acute (2) Urinary tract infection: Status: Acute DS: Summary Hospital Course Hospital Course: History and physical as per admitting provider. The patient is a 73-year-old male with a past medical history of BPH and neurogenic bladder who does occasional CIC presents to the ED with complaints of urinary retention ongoing for about the last several days. The patient reports that typically he is able to urinate on his own and does have some urinary retention which he self treats with straight catheterization. He typically has to do this infrequently, however since Thursday he has been unable to void on his own requiring multiple straight caths and hence he presented to the ED today. In the emergency room the patient was noted to have a UA suggestive of urinary tract infection. A CT scan of the abdomen and pelvis has been completed and is pending read. He also was noted to have acute kidney [place] [id number]. Given the constellation of these findings a diagnosis of sepsis secondary to urinary tract infection has been made and the patient will now be admitted for further care. The patient is seen and examined in the ED around 130p. Discussed with him regarding Cruz catheter insertion which he has agreed to at this time. He does report some left-sided flank pain but states that this is different than his prior episodes of nephrolithiasis. 73-year-old man treated for sepsis secondary to E coli UTI. Initially treated with IV Zosyn, switched to Ceftin for total of 10 days. Patient had Cruz catheter placed due to history of urinary retention. Plan will be to remove Cruz catheter and patient should be straight cathing at home 4 times a day to completely empty his bladder. He had only been straight cathing once a day in the evening and reported that he was urinating throughout the day but likely he was not completely emptying his bladder leading to UTI and sepsis. Plan will be for patient to continue Flomax, straight cath and follow up with Urology as needed Time Attestation Discharge Coordination Time (in mins): 42 Quality: Safe Use of Opioids Does Pt have an Active Cancer Diagnosis on the Problem List?: No Quality: Stroke Does the patient have a stroke diagnosis?: No Physical Exam Vital Signs: Vital Signs: Last Vital Signs Temp 98.0 F 03/15/24 08:12 Pulse 88 03/15/24 08:12 Resp 18 03/15/24 08:12 BP 131/61 03/15/24 08:12 Pulse Ox 94 03/15/24 08:12 O2 Del Method Room Air 03/15/24 08:12 BMI result Body Mass Index 25.9 Appearing in no acute distress head is normocephalic atraumatic eyes pupils are PERRLA sclera is anicteric mouth throat mucous membranes are intact and moist neck is supple no lymphadenopathy, no JVD noted lung sounds are clear to auscultation heart regular rate rhythm, clear S1, S2 positive bowel sounds, abdomen is soft, nontender neuro patient is alert x3, no focal deficits DS: Data Data Completed and Pending Labs on day of discharge: Laboratory Results - last 24 hr 03/15/24 05:12 WBC 7.8 RBC 4.63 Hgb 11.2 L Hct 34.0 L MCV 73.4 L MCH 24.2 L MCHC 32.9 RDW 12.7 Plt Count 177 MPV 11.3 Absolute Nucleated RBC 0.000 Nucleated RBC % (auto) 0.0 Sodium 137 Potassium 4.1 Chloride 105 Carbon Dioxide 24 Anion Gap 12 BUN 13 Creatinine 1.62 H Estim Creat Clear Calc 45.2 Estimated GFR 42 Random Glucose 110 Calcium 8.7 Preliminary micro results at discharge 03/13/24 11:32 Blood Culture - Preliminary Blood - Venous No growth after 24 hours. 03/13/24 11:31 Blood Culture - Preliminary Blood - Venous No growth after 24 hours. Discharge Plan Discharge Anticipated Discharge Date/Time: 03/15/24 08:41 Patient Disposition: Home, Self-Care Discharge Diagnosis: E coli UTI Referrals: Elizabeth Hicks MD [Primary Care Provider] - 1 Week Discharge Medications: New cefuroxime axetil 500 mg tablet 500 mg PO BID Qty: 16 0RF Continued tamsulosin 0.4 mg capsule 0.4 mg PO BEDTIME 90 Days Qty: 90 1RF ketoconazole 2 % cream 1 appl topical BID PRN (Reason: tinea pedis) multivitamin Tablet 1 tab PO DAILY magnesium oxide 400 mg (241.3 mg magnesium) Tablet 400 mg PO DAILY vitamin D3-vitamin K2 125 mcg (5,000 unit)-180 mcg Capsule 1 cap PO DAILY methenamine hippurate 1 gram tablet 1 g PO DAILY 90 Days Qty: 90 1RF Discharge Orders: Discharge Order (Routine); Ordered 03/15/24 Ordered By: Shazia Rebolledo Diet: Advance to usual diet Activity on Discharge: As tolerated Stand Alone Forms: Patient Portal Discharge page Print Language: Occitan Care Plan Goals: Straight cath 4 times daily to completely empty your bladder Follow up with Urology as needed Health Concerns: Urinary retention E coli UTI Plan of Treatment: Follow-up with primary care provider as needed Take all medications as prescribed Assessment: See discharge summary
--- NOTE | 2024-03-15 09:30 | MHC.CM.PN ---
PT DCD HOME SELF CARE
--- NOTE | 2024-03-15 09:40 | PC.NURSE ---
Pt starmichellet cath at home. Has supplies.
== END 2024-03-15 10:54 | disposition home or self-care (01) | DRG 872 ==
LOC: HO.ED 13:05 → HO.EDOVER 13:51 → HO.S3 03-14 07:27
PROVIDERS: Physician Assistant; Admitting Provider Family Medicine; Emergency Provider Emergency Medicine; PCP Student in an Organized Health Care Education/Training Program; Visit Provider Nurse Practitioner Acute Care
DX: A41.9 Sepsis, unspecified organism (principal); N13.8 Other obstructive and reflux uropathy; N17.9 Acute kidney failure, unspecified; E89.2 Postprocedural hypoparathyroidism; R33.8 Other retention of urine; B96.20 Unspecified Escherichia coli [E. coli] as the cause of diseases classified elsewhere; N40.1 Benign prostatic hyperplasia with lower urinary tract symptoms; N31.9 Neuromuscular dysfunction of bladder, unspecified; Z87.442 Personal history of urinary calculi; Z87.891 Personal history of nicotine dependence; Z79.899 Other long term (current) drug therapy
CPT/HCPCS: 36415; 74176; 80048; 81001; 83605; 85007; 85027; 87040; 87086; 87088; 87186; 99285; C1758; J0696; J1650; J1885; J2543; J7120

== ENCOUNTER → 2024-03-13 13:45 | Outpatient (BNV) | payer MEDICARE, SELFPAY | PROVIDERS: Admitting Provider Family Medicine; Emergency Provider Emergency Medicine; PCP Student in an Organized Health Care Education/Training Program; Visit Provider Family Medicine | DX: A41.9 Sepsis, unspecified organism (principal); N39.0 Urinary tract infection, site not specified; N17.9 Acute kidney failure, unspecified | CPT/HCPCS: 99223; 99232; 99239 ==

== ENCOUNTER 2024-04-20 09:54 | Outpatient (AMB) | payer MEDICARE, SELFPAY ==
--- NOTE | 2024-04-20 09:54 | A.OFFVIS_ITS ---
Intake Visit Reasons: Greenlight procedure discussion Intake Note: Patient is present for GREENLIGHT PROCEDURE DISCUSSION Urology Medication:METHENAMINE HIPPURATE,TAMSULOSIN Antibiotic Allergy:NONE Blood Thinner:VITAMIN K Drum Stenciler Required: No Allergies nut - unspecified [NUTS] Allergy (Mild, Verified 04/20/24 09:55) THROAT RODRIGUEZ pollen extracts [POLLEN] Allergy (Mild, Verified 04/20/24 09:55) Nasal congestion GRASS Allergy (Mild, Uncoded 04/20/24 09:55) Nasal congestion HPI Comments Details: Hany POLLOCK is a very pleasant male. He is a patient of Dr Hicks. He is seen in the office today for the following urologic conditions. - neurogenic bladder - nephrolithiasis Only doing occasional CIC Again discussed use of neurostimulator There were no real medications that can help his current situation Would like to try prostate procedure although previously has had a small prostate Can perform prostate procedure however low likelihood of success Neurogenic Bladder: Had been seeing every 6 months He thinks he is doing okay emptying his bladder He knows he is going to have a large residual in his bladder Will see again in 12 months with repeat ultrasound He knows how to do CIC if he finds himself in trouble 01/14 PSA 2.0. They are here for further management for incomplete emptying neurogenic bladder. Urinary retention initially found after ER visit for spontaneous retention - 10/13 with 2L residual - PVR in office 350cc - have been present for indeterminate period of time - PVR 12/14 325 - PSA 11/13 10 - PSA 02/13 2.5 - PSA 01/14 2.0 PVR on bladder US 325cc, max is 750cc - 01/15 PVR 350 cc Cystoscopy results 12/14 prostate small, minimal obstruction. Associated conditions Alzhiemers No CAD No CVA No Diabetes No Multiple sclerosis No renal replacement therapy No Spinal injury/surgery No Current management alpha blockers. Therapeutic plan continue with medication. Nephrolithiasis/Urolithiasis: They are here for further evaluation of nephrolithiasis and right renal cysts - labs and imaging discussed. Urolithiasis was diagnosed 06/08/17 - [facility] [place] ER with flank pain and di scomfort. Controlled with medication. On flomax at baseline.. The patient previously had kidney stones whose composition w unknown. Laboratory investigations include no recent labs. 24 Hour urine evaluation none on file. Prior treatment(s) include 06/14 MET. Prior imaging includes 06/14 , a CT (computed tomography) scan of the abdomen/pelvis (stone protocol), showing radiodense stone(s), showing ureteral stone(s), on the right, 2-5 mm, hydronephrosis mild in severity 07/15 , a renal ultrasound, normal, no stones 01/14 , a renal ultrasound, showing no evidence of stones, multiple bilateral cysts 1-2 cm - 09/18 renal ultrasound bilateral cysts no evidence of stones - 08/19 renal ultrasound no evidence of stones Current therapeutic plan will be to continue with imaging surveillance [facility] Medical History (Updated 06/14/24 @ 09:38 by Marco Arriola MD) BPH w urinary obs/LUTS Kidney stones Surgical hypoparathyroidism BPH (benign prostatic hyperplasia) Urinary retention Spinal stenosis Surgical History H/O shoulder surgery Social History Household Members: Significant Other Housing: House Do you presently have visiting nurse or other home services: No Alcohol intake: former Patient Tobacco Use Status: Former Tobacco user service: No Review of Systems Const Denies chills and Denies fever(s) Card Reports no additional complaints and Denies syncope Resp Denies cough GI Denies abdominal pain and Denies heartburn Reports as per HPI and Denies change in libido Neuro Denies syncope Psych Denies change in libido Endo Denies change in libido Physical Exam Const General: cooperative, healthy appearing, comfortable and no acute distress Orientation/consciousness: patient oriented x3 HEENT Face and sinus: Yes normal facial exam Mouth: moist mucous membranes Neck Neck: Yes normal visual inspection, Yes full ROM and Yes trachea midline Chest Chest palpation & inspection: normal inspection of the chest Resp Effort & Inspection: normal respiratory effort, able to speak in complete sentences and no respiratory distress GI Inspection: Yes normal to inspection Back/Spine/Pelvis Cervical Spine: normal cervical lordosis Thoracic/Lumbar Spine: thoracic and lumbar spine normal to inspection Skin General skin exam: no rashes or lesions noted Neuro General: patient oriented x3, gait normal, tone normal and moves all extremities Extrem General: Yes normal to inspection and Yes capillary refill normal Assessment & Plan Assessment & Plan (1) Urinary retention: Code(s): R33.9 - Retention of urine, unspecified Category: Medical (2) BPH w urinary obs/LUTS: Code(s): N40.1 - Benign prostatic hyperplasia with lower urinary tract symptoms; N13.8 - Other obstructive and reflux uropathy Category: Medical Plan We discussed the nature of the decision and reasonable options for performing a prostate intervention. Interventions include TURP, GreenLight laser enucleation of the prostate, GreenLight laser ablation of the prostate, transurethral incision of the prosta te, and I-Tend prostate procedure. Options such as medical therapy were discussed. The relative uncertainties and benefits related to each alternate procedure were adequately discussed. General surgical risks including, but not limited to, pain, bleeding, infection, myocardial infarction, pulmonary embolus, deep vein thrombosis and cerebrovascular accident which may result in further hospitaliza tion were discussed. Full disclosure of the procedure as well as all major risks, benefits and complications were discussed including but not limited to damage to the urethra or bladder neck, recurrent BPH, retrograde ejaculation, bladder infection, urge, de yadira frequency, incomplete emptying, dysuria, remote chance of erectile dysfunction, epididymitis, and meatal stenosis. The success rate of the procedure was discussed. Success of the procedure in the short-term does not necessarily guarantee that long-term success will be maintained. Suitable follow up will need to be maintained. The patient showed understanding of discussion. An opportunity was provided for questions to be answered and wishes to proceed with the following procedure. - greenlight Medications: New bethanechol chloride 50 mg PO BID 60 tabs 1RF 30 days R33.9 - Retention of urine, unspecified, N39.0 - Urinary tract infection, site not specified Patient Instructions: This note is constructed using voice recognition software. While every effort has been made to ensure accuracy supervisor vat house errors may have been included. Imaging studies, laboratory and physical exam results were discussed and reviewed in detail. No major barriers to patient understanding were identified. An opportunity to ask questions regarding the treatment plan was provided. All questions were answered. The patient expressed understanding and agreement with the above treatment plan. The patient is aware they should contact our office by phone for worsening of their current condition or the appearance of new urologic symptoms. Compliance is encouraged with any medications and followup testing that is ordered. It is a privilege to participate in the urologic care of your patient. If you have any questions or concerns regarding treatment for the above conditions, or other urologic issues, please do not hesitate to contact me. The office telephone contact is [phone]. Sincerely, Dr Marco Arriola MD, [facility] - Urology Compassionate Specialist Care for the Genitourinary System Coding Level of Care Code Est Pt Level 3 (89193) Complex EM visit Add On G2211 Diagnoses Urinary retention R33.9 BPH w urinary obs/LUTS N40.1; N13.8
== END 2024-04-20 11:37 | disposition home or self-care (01) ==
LOC: HO.HUSH 09:54
PROVIDERS: PCP Student in an Organized Health Care Education/Training Program; Visit Provider Urology
DX: R33.9 Retention of urine, unspecified (principal); N40.1 Benign prostatic hyperplasia with lower urinary tract symptoms; N13.8 Other obstructive and reflux uropathy
CPT/HCPCS: 99213; G2211

== ENCOUNTER → 2024-04-20 09:54 | Outpatient (BNVA) | payer MEDICARE, SELFPAY | PROVIDERS: PCP Student in an Organized Health Care Education/Training Program; Visit Provider Urology | DX: N40.1 Benign prostatic hyperplasia with lower urinary tract symptoms (principal); N13.8 Other obstructive and reflux uropathy; R33.9 Retention of urine, unspecified | CPT/HCPCS: 99212 ==

== ENCOUNTER 2024-06-15 08:57 | Outpatient (AMB) | payer MEDICARE, SELFPAY ==
--- NOTE | 2024-06-15 08:57 | A.OFFVIS_ITS ---
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 He is a patient of Dr Hicks. He is seen in the office today for the following urologic conditions. - neurogenic bladder - nephrolithiasis Telemedicine Evaluation 15 min Consultation Doximity Chantel Video Only doing occasional CIC Discussion regarding prostate procedure Neurogenic Bladder: Had been seeing every 6 months He thinks he is doing okay emptying his bladder He knows he is going to have a large residual in his bladder Will see again in 12 months with repeat ultrasound He knows how to do CIC if he finds himself in trouble 01/14 PSA 2.0. They are here for further management for incomplete emptying neurogenic bladder. Urinary retention initially found after ER visit for spontaneous retention - 10/13 with 2L residual - PVR in office 350cc - have been present for indeterminate period of time - PVR 12/14 325 - PSA 11/13 10 - PSA 02/13 2.5 - PSA 01/14 2.0 PVR on bladder US 325cc, max is 750cc - 01/15 PVR 350 cc Cystoscopy results 12/14 prostate small Current management alpha blockers. Therapeutic plan continue with medication. Nephrolithiasis/Urolithiasis: They are here for further evaluation of nephrolithiasis and right renal cysts - labs and imaging discussed. Urolithiasis was diagnosed 06/08/17 - [facility] [place] with flank pain and discomfort. Controlled with medication. On flomax at baseline.. The patient previously had kidney stones whose composition w unknown. Laboratory investigations include no recent labs. 24 Hour urine evaluation none on file. Prior treatment(s) include 06/14 MET. Prior imaging includes 06/14 , a CT (computed tomography) scan of the abdomen/pelvis (stone protocol), showing radiodense stone(s), showing ureteral stone(s), on the right, 2-5 mm, hydronephrosis mild in severity 07/15 , a renal ultrasound, normal, no stones 01/14 , a renal ultrasound, showing no evidence of stones, multiple bilateral cysts 1-2 cm - 09/18 renal ultrasound bilateral cysts no evidence of stones - 08/19 renal ultrasound no evidence of stones Current therapeutic plan will be to continue with imaging surveillance [facility] Medical History (Updated 06/14/24 @ 09:38 by Marco Arriola MD) BPH w urinary obs/LUTS Kidney stones Surgical hypoparathyroidism BPH (benign prostatic hyperplasia) Urinary retention Spinal stenosis Surgical History H/O shoulder surgery Social History Household Members: Significant Other Housing: House Do you presently have visiting nurse or other home services: No Alcohol intake: former Patient Tobacco Use Status: Former Tobacco user service: No Telehealth Telehealth Telehealth Platform: [employer] Location of provider rendering services: practice address Location of patient: address on file Patient Identification confirmed using: Name, : Yes Telehealth method: video Patient verbally consented to treatment: Yes Patient verbally consented to billing insurance company: Yes Patient informed of any privacy concerns related to visit: Yes Minutes spent on Phone/Video with Pt.: 15 Assessment & Plan Assessment & Plan (1) BPH w urinary obs/LUTS: Code(s): N40.1 - Benign prostatic hyperplasia with lower urinary tract symptoms; N13.8 - Other obstructive and reflux uropathy Category: Medical Plan Risks, benefits and alternatives to therapy were discussed. These include but are not limited to infection, bleeding, damage to local organs and tissues, need for further interventions. Anesthetic risks regarding cardiac arrhythmia, blood clots, and potential mortality were discussed. The patient understands the typical recovery time and the outpatient nature of the procedure. After consideration of these risks the patient gives full informed consent and they wish to move ahead with the procedure. prostate procedure - greenlight vs plasma button Medications: Changed From bethanechol chloride 50 mg PO BID 30 days 60 tabs 1RF N39.0 - Urinary tract infection, site not specified, R33.9 - Retention of urine, unspecified To bethanechol chloride 50 mg PO BID 90 days 180 tabs 1RF N39.0 - Urinary tract infection, site not specified, R33.9 - Retention of urine, unspecified Patient Instructions: This note is constructed using voice recognition software. While every effort has been made to ensure accuracy hvac sheet metal installer errors may have been included. Imaging studies, laboratory and physical exam results were discussed and reviewed in detail. No major barriers to patient understanding were identified. An opportunity to ask questions regarding the treatment plan was provided. All questions were answered. The patient expressed understanding and agreement with the above treatment plan. The patient is aware they should contact our office by phone for worsening of their current condition or the appearance of new urologic symptoms. Compliance is encouraged with any medications and followup testing that is ordered. It is a privilege to participate in the urologic care of your patient. If you have any questions or concerns regarding treatment for the above conditions, or other urologic issues, please do not hesitate to contact me. The office telephone contact is [phone]. Sincerely, Dr Marco Arriola MD, MAHIN [facility] - Urology Compassionate Specialist Care for the Genitourinary System Coding Level of Care Code Tele Est Pt Level 3 (60132) Diagnoses BPH w urinary obs/LUTS N40.1; N13.8
== END 2024-06-15 09:37 | disposition home or self-care (01) ==
LOC: HO.HUSH 08:57
PROVIDERS: PCP Student in an Organized Health Care Education/Training Program; Visit Provider Urology
DX: N40.1 Benign prostatic hyperplasia with lower urinary tract symptoms (principal); N13.8 Other obstructive and reflux uropathy
CPT/HCPCS: 99213

== ENCOUNTER 2024-06-20 07:32 | Day surgery (SDC) | payer MEDICARE, SELFPAY ==
--- NOTE | 2024-06-17 08:57 | P.CONAN_ITS ---
Documented by User: Scarlett Vazquez NP 06/17/24 08:57 HPI - Anesthesia Eval Consult details Narrative: 74yo M for Laser Ablation Prostate w/Green Light PMFSH Active Problems Active Problems: All Active Problems BPH w urinary obs/LUTS (Acute) Urinary retention (Acute) Renal cyst (Acute) Kidney stones (Acute) Past Medical History Medical History Kidney stones Surgical hypoparathyroidism BPH (benign prostatic hyperplasia) Urinary retention Spinal stenosis BPH w urinary obs/LUTS Surgical History Surgical History (Updated 06/20/24 @ 07:42 by Soraya Yates, RN) Hx of tonsillectomy History of surgery on arm Hx of parathyroidectomy History of back surgery H/O shoulder surgery Social History Social History Household Members: Significant Other Housing: House Do you presently have visiting nurse or other home services: No Alcohol intake: former Patient Tobacco Use Status: Former Tobacco user Use of substances other than those prescribed or required for medical reasons: No Are you DNR?: No Advance Directives: No Advance Directives Information Provided: Yes service: No Meds Allergies Allergy/AdvReac Type Severity Reaction Status Date / Time nut - unspecified [NUTS] Allergy Mild THROAT Verified 06/20/24 07:42 RODRIGUEZ pollen extracts [POLLEN] Allergy Mild Nasal Verified 06/20/24 07:42 congestion GRASS Allergy Mild Nasal Uncoded 06/15/24 08:59 congestion Home Medications ?Medication ?Instructions ?Recorded ?Confirmed ?Last Taken ?Type ketoconazole 2 % topical cream 1 appl topical BID PRN tinea pedis 03/13/24 06/20/24 Unknown History magnesium oxide 400 mg (241.3 mg 400 mg PO DAILY 03/13/24 06/20/24 03/12/24 History magnesium) tablet multivitamin 1 tab PO DAILY 03/13/24 06/20/24 03/12/24 History vitamin D3 125 mcg (5,000 1 cap PO DAILY 03/13/24 06/20/24 03/12/24 History unit)-vitamin K2 180 mcg capsule Assessment and Plan Assessment Anesthesia Assessment: Chart Reviewed Documented by User: Michele Jean MD 06/20/24 09:09 [facility] Past Medical History Medical History Kidney stones Surgical hypoparathyroidism BPH (benign prostatic hyperplasia) Urinary retention Spinal stenosis BPH w urinary obs/LUTS Family History Family history of problems with anesthesia: No Surgical History Surgical History (Updated 06/20/24 @ 07:42 by Soraya Yates, RN) Hx of tonsillectomy History of surgery on arm Hx of parathyroidectomy History of back surgery H/O shoulder surgery History of Problems with Anesthesia: No Social History Social History Household Members: Significant Other Housing: House Do you presently have visiting nurse or other home services: No Alcohol intake: former Patient Tobacco Use Status: Former Tobacco user Use of substances other than those prescribed or required for medical reasons: No Are you DNR?: No Advance Directives: No Advance Directives Information Provided: Yes service: No Meds Allergies Allergy/AdvReac Type Severity Reaction Status Date / Time nut - unspecified [NUTS] Allergy Mild THROAT Verified 06/20/24 07:42 RODRIGUEZ pollen extracts [POLLEN] Allergy Mild Nasal Verified 06/20/24 07:42 congestion GRASS Allergy Mild Nasal Uncoded 06/15/24 08:59 congestion Home Medications ?Medication ?Instructions ?Recorded ?Confirmed ?Last Taken ?Type ketoconazole 2 % topical cream 1 appl topical BID PRN tinea pedis 03/13/24 06/20/24 Unknown History magnesium oxide 400 mg (241.3 mg 400 mg PO DAILY 03/13/24 06/20/24 03/12/24 History magnesium) tablet multivitamin 1 tab PO DAILY 03/13/24 06/20/24 03/12/24 History vitamin D3 125 mcg (5,000 1 cap PO DAILY 03/13/24 06/20/24 03/12/24 History unit)-vitamin K2 180 mcg capsule Exam Airway Mallampati Class: II TM Dist: >3cm Neck ROM: Full Loose/Missing/Broken Teeth: No Heart: ok Lungs: ok Assessment and Plan Assessment Anesthesia Assessment: Anesthesia Plan Discussed Final Anesthetic Review Family History of Problems with Anesthesia: No History of Problems with Anesthesia: No NPO: Yes ASA Class: II Final Preanesthetic Review: No Changes in Pt Med Stat, Meds/Allgs Chart Reviewed, Consent Obtained/Reviewed and Anes Risks/Benef Reviewed Patient Risk: Intermediate Procedure Risk: Low Anesthetic Plan Anesthetic Plan: GA and Agree w/ Assess. and Plan Disposition: Standard PACU
[2024-06-20 07:44] VITALS: BMI 27.3
[2024-06-20 08:00] VITALS: BP 143/70; PULSE 68; RESP 15; TEMP 36.4; O2SAT 96
[2024-06-20] MEDS: Lactated Ringers 1,000 ML 100 ML IVCONT (08:10)
--- NOTE | 2024-06-20 08:36 | MHC.SHP ---
Pre-Procedural Eval Section A - 24 Hr Update-Section A only Date of Service: 06/20/24 The patient is an INPATIENT: No Changes since office visit: No Cold of Flu in the past 2 weeks, No New Medical Problems, No Changes in Medication and No Patient answered all questions The patient has been examined within 24 hours of the surgical procedure. The History & Physical has been completed within 30 days and I have reviewed it.: Yes Section B - Complete if H&P > 30 days Chief Complaint: Benign prostatic hyperplasia with lower urinary tr Details of Present Illness: GreenLight laser prostatectomy Allergies: Allergies Allergy/AdvReac Type Severity Reaction Status Date / Time nut - unspecified [NUTS] Allergy Mild THROAT Verified 06/20/24 07:42 RODRIGUEZ pollen extracts [POLLEN] Allergy Mild Nasal Verified 06/20/24 07:42 congestion GRASS Allergy Mild Nasal Uncoded 06/15/24 08:59 congestion Plan I have reviewed the history and physical and performed a pertinent physical examination on my patient. No changes have occurred unless specified. Time Spent With Patient Time: Total time managing care of this patient today ____ minutes.
--- NOTE | 2024-06-20 09:51 | P.OP_ITS ---
Operative Note Operative Note Date of Service: 06/20/24 Narrative: PreOperative Diagnosis: Bladder outlet obstruction Post Operative Diagnosis: Bladder outlet obstruction Procedure: GreenLight Laser Enucleation of the prostate CPT 85088 Surgeon: Dr Marco Arriola Anesthesia: General History of bladder outlet obstruction. Treated with alpha-emerita and other medications. Still with symptoms particularly incomplete emptying. On cystoscopy in office has tight bladder neck with large bladder. Recommendation for prostate procedure with laser enucleation of prostate. Risks and benefits have been discussed. Focus was placed on development of retrograde ejaculation which is a normal part of this procedure. Procedure: After informed consent was verified the patient was brought to the operating room and placed in a supine position. Anesthesia was administered per protocol. Patient was placed in modified dorsal lithotomy position and prepped and draped in a sterile fashion. Safety pause time-out was confirmed. Antibiotics have been given. A Twenty-four Turkmen laser cystoscope was inserted per urethra. No abnormalities were found of the anterior and bulbar urethra. The prostatic urethra shows tight bladder neck. The bladder was examined and both ureteric orifices were seen in their normal positions away from the area of interest. Bladder trabeculation grade 2 with significant capacity.. Using a GreenLight laser with initial settings of 80 neff incisions were made at the 5 and 7 o'clock position. The incisions were taken down from the bladder neck down to the area just proximal of the veru. These were gradually deepened in order to define the lateral aspects of the median lobe area. The deep boundary of enucleation was defined by the prostate surgical capsule. Once clearly defined the grooves were extended in the lateral directions in order to create a deep groove. The median lobe was then ablated and enucleated tissue released into the bladder with the laser power increased to 120 W. medium size Once the median lobe area had been cleared, attention was directed to the lateral lobes. Starting with the patient's left lateral lobe. First the 05:00 o'clock groove was further developed. This was moved in the lateral direction to undermine the tissue on the lateral side running from the bladder neck to the prostate apex. The ureteric orifice was used to guide incisions. The laser fiber was placed at the 1 o'clock position and a secondary groove was developed down to the level of prostatic capsule. The creation of a second deep groove defined a segment of intervening tissue similar to a slice of orange. At the apex of the prostate the laser was used to vertically link the two grooves releasing the intervening tissue and creating a segment of tissue. This tissue was then removed with a combination of enucleation and ablation working from the apex toward the bladder neck. A similar procedure was repeated on the patient's right-hand side. The only differences being the position of the lateral groove at he 7 o'clock position and the secondary groove at the 11 o'clock position, Otherwise the procedure was developed in a mirror fashion. Laser power 120 After the majority of tissue had been debulked remnant tissue was ablated with the side fire laser and the curve of the prostate followed up each side wall clearly defining the anterior remnant strip that remained between the 11 and 1 o'clock positions. Extra time was spent developing in the lateral grooves in keeping these in line with his ureteric orifice At completion debris and pieces of prostate were removed from the bladder with irrigation. Both ureteric orifices were reviewed again in shown to be patent in away from any areas of energy damage. The apical area was reviewed and any stray mucosal ooze was controlled. A 22 Turkmen 30 cc balloon Cruz catheter was placed into the bladder using a flexible stylet. Clear efflux was obtained upon irrigation with a Meagan piston syringe. 50 cc was placed in the balloon and gentle traction was placed. A snap was used to hold tension on the catheter to control bleeding during patient moved and transported. A drainage bag was placed. Once transportation is complete to the PACU the snap will be removed. The patient tolerated the procedure well, he was extubated in the operating and transferred in a stable condition to the recovery area. Total Power 135 kW Lasing time 19:30 Pathology: Prostate tissue Drains: Cruz catheter
[2024-06-20 09:56] VITALS: BP 143/73; PULSE 75; RESP 17; TEMP 36.6; O2SAT 93
[2024-06-20 10:00] VITALS: BP 136/73; PULSE 69; RESP 16; O2SAT 93
[2024-06-20 10:05] VITALS: BP 132/76; PULSE 68; RESP 16; O2SAT 93
[2024-06-20 10:10] VITALS: BP 128/66; PULSE 67; RESP 16; O2SAT 96
[2024-06-20] MEDS: oxyCODONE HCl Immed Release 5 MG TABLET PO (10:11)
[2024-06-20 10:24] VITALS: BP 113/80; PULSE 58; RESP 20; TEMP 36.2; O2SAT 99
[2024-06-20] MEDS: Acetaminophen 325 MG TABLET 975 MG PO (10:27)
== END 2024-06-20 10:53 | disposition home or self-care (01) ==
PROVIDERS: PCP Student in an Organized Health Care Education/Training Program; Visit Provider Urology
PROC: (CPT 52648; principal; 2024-06-20 09:00)
DX: N40.1 Benign prostatic hyperplasia with lower urinary tract symptoms (principal); N13.8 Other obstructive and reflux uropathy; R33.8 Other retention of urine; N20.0 Calculus of kidney; Z79.899 Other long term (current) drug therapy; Z91.018 Allergy to other foods; Z91.09 Other allergy status, other than to drugs and biological substances; Z87.891 Personal history of nicotine dependence
CPT/HCPCS: 52649; 88305; J0690; J2003; J2704; J3010

== ENCOUNTER → 2024-06-20 07:32 | Outpatient (BNV) | payer MEDICARE, SELFPAY | PROVIDERS: PCP Student in an Organized Health Care Education/Training Program; Visit Provider Urology | DX: N32.0 Bladder-neck obstruction (principal) | CPT/HCPCS: 52649 ==

== ENCOUNTER → 2024-06-22 09:19 | Outpatient (BNVA) | payer MEDICARE, SELFPAY | PROVIDERS: PCP Student in an Organized Health Care Education/Training Program; Visit Provider Urology | DX: N40.1 Benign prostatic hyperplasia with lower urinary tract symptoms (principal); N13.8 Other obstructive and reflux uropathy; R33.8 Other retention of urine | CPT/HCPCS: 51700 ==

== ENCOUNTER 2024-07-29 10:35 | Outpatient (AMB) | payer MEDICARE, SELFPAY ==
--- NOTE | 2024-07-29 10:41 | A.OFFVIS_ITS ---
Intake Visit Reasons: Greenlight/PVR- follow up Intake Note: Patient is present for greenlight/PVR follow up Urology Medication:TAMSULOSIN,METHANAMINE HIPPURATE Antibiotic Allergy:NONE Blood Thinner:NONE PVR:146ml Appliance Technician Required: No Allergies nut - unspecified [NUTS] Allergy (Mild, Verified 07/29/24 10:47) THROAT RODRIGUEZ pollen extracts [POLLEN] Allergy (Mild, Verified 07/29/24 10:47) Nasal congestion GRASS Allergy (Mild, Uncoded 06/15/24 08:59) Nasal congestion HPI Comments Details: Hany POLLOCK is a very pleasant male. He is a patient of Dr Hicks. He is seen in the office today for the following urologic conditions. - neurogenic bladder - nephrolithiasis Six weeks from GreenLight laser procedure PVR 0 cc Incredible response Continue with bethanechol and tamsulosin for six-month Neurogenic Bladder: Had been seeing every 6 months He thinks he is doing okay emptying his bladder He knows he is going to have a large residual in his bladder Will see again in 12 months with repeat ultrasound He knows how to do CIC if he finds himself in trouble 01/14 PSA 2.0. They are here for further management for incomplete emptying neurogenic bladder. Urinary retention initially found after ER visit for spontaneous retention - 10/13 with 2L residual - PVR in office 350cc - have been present for indeterminate period of time - PVR 12/14 325 - PSA 11/13 10 - PSA 02/13 2.5 - PSA 01/14 2.0 PVR on bladder US 325cc, max is 750cc - 01/15 PVR 350 cc Cystoscopy results 12/14 prostate small Current management alpha blockers. Therapeutic plan continue with medication. Nephrolithiasis/Urolithiasis: They are here for further evaluation of nephrolithiasis and right renal cysts - labs and imaging discussed. Urolithiasis was [place] 06/08/17 [place] [facility] [place] pain and discomfort. Controlled with medication. On flomax at baseline.. The patient previously had kidney stones whose composition w unknown. Laboratory investigations include no recent labs. 24 Hour urine evaluation none on file. Prior treatment(s) include 06/14 MET. Prior imaging includes 06/14 , a CT (computed tomography) scan of the abdomen/pelvis (stone protocol), showing radiodense stone(s), showing ureteral stone(s), on the right, 2-5 mm, hydronephrosis mild in severity 07/15 , a renal ultrasound, normal, no stones 01/14 , a renal ultrasound, showing no evidence of stones, multiple bilateral cysts 1-2 cm - 09/18 renal ultrasound bilateral cysts no evidence of stones - 08/19 renal ultrasound no evidence of stones Current therapeutic plan will be to continue with imaging surveillance [facility] Medical History Kidney stones Surgical hypoparathyroidism BPH (benign prostatic hyperplasia) Urinary retention Spinal stenosis BPH w urinary obs/LUTS Surgical History Hx of tonsillectomy History of surgery on arm Hx of parathyroidectomy History of back surgery H/O shoulder surgery Social History Household Members: Significant Other Housing: House Do you presently have visiting nurse or other home services: No Alcohol intake: former Patient Tobacco Use Status: Former Tobacco user service: No Review of Systems Const Denies chills and Denies fever(s) Card Reports no additional complaints and Denies syncope Resp Denies cough GI Denies abdominal pain and Denies heartburn Reports as per HPI and Denies change in libido Neuro Denies syncope Psych Denies change in libido Endo Denies change in libido Physical Exam Const General: cooperative, healthy appearing, comfortable and no acute distress Orientation/consciousness: patient oriented x3 HEENT Face and sinus: Yes normal facial exam Mouth: moist mucous membranes Neck Neck: Yes normal visual inspection, Yes full ROM and Yes trachea midline Chest Chest palpation & inspection: normal inspection of the chest Resp Effort & Inspection: normal respiratory effort, able to speak in complete sentences and no respiratory distress GI Inspection: Yes normal to inspection Back/Spine/Pelvis Cervical Spine: normal cervical lordosis Thoracic/Lumbar Spine: thoracic and lumbar spine normal to inspection Skin General skin exam: no rashes or lesions noted Neuro General: patient oriented x3, gait normal, tone normal and moves all extremities Extrem General: Yes normal to inspection and Yes capillary refill normal Assessment & Plan Assessment & Plan (1) Urinary retention: Code(s): R33.9 - Retention of urine, unspecified Category: Medical (2) BPH w urinary obs/LUTS: Code(s): N40.1 - Benign prostatic hyperplasia with lower urinary tract symptoms; N13.8 - Other obstructive and reflux uropathy Category: Medical Plan Six-month follow-up PVR UA office Medications: Refilled tamsulosin 0.4 mg PO BEDTIME 90 days 90 caps 1RF bethanechol chloride 50 mg PO BID 90 days 180 tabs 1RF N39.0 - Urinary tract infection, site not specified, R33.9 - Retention of urine, unspecified Patient Instructions: This note is constructed using voice recognition software. While every effort has been made to ensure accuracy sales and marketing executive errors may have been included. Imaging studies, laboratory and physical exam results were discussed and reviewed in detail. No major barriers to patient understanding were identified. An opportunity to ask questions regarding the treatment plan was provided. All questions were answered. The patient expressed understanding and agreement with the above treatment plan. The patient is aware they should contact our office by phone for worsening of their current condition or the appearance of new urologic symptoms. Compliance is encouraged with any medications and followup testing that is ordered. It is a privilege to participate in the urologic care of your patient. If you have any questions or concerns regarding treatment for the above conditions, or other urologic issues, please do not hesitate to contact me. The office telephone contact is [phone]. Sincerely, Dr Marco Arriola MD, MAHIN [facility] - Urology Compassionate Specialist Care for the Genitourinary System Coding Level of Care Code Est Pt Level 3 (94213) Diagnoses Urinary retention R33.9 BPH w urinary obs/LUTS N40.1; N13.8
== END 2024-07-29 11:07 | disposition home or self-care (01) ==
LOC: HO.HUSH 10:35
PROVIDERS: PCP Student in an Organized Health Care Education/Training Program; Visit Provider Urology
DX: R33.9 Retention of urine, unspecified (principal); N40.1 Benign prostatic hyperplasia with lower urinary tract symptoms; N13.8 Other obstructive and reflux uropathy; Z13.9 Encounter for screening, unspecified
CPT/HCPCS: 99024

== ENCOUNTER → 2024-07-29 10:35 | Outpatient (BNVA) | payer MEDICARE, SELFPAY | PROVIDERS: PCP Student in an Organized Health Care Education/Training Program; Visit Provider Urology | DX: N40.1 Benign prostatic hyperplasia with lower urinary tract symptoms (principal); N13.8 Other obstructive and reflux uropathy; R33.9 Retention of urine, unspecified | CPT/HCPCS: 81003; 99212 ==

== ENCOUNTER 2025-02-01 11:21 | Outpatient (AMB) | payer MEDICARE, SELFPAY ==
--- OUTSIDE RECORDS SUMMARY | 2025-01-30 08:20 | XMS_ITS | Encounter Summary ---
Author Organization [facility] Address [address] [place] [address] Phone Care Team Providers Care Olive Grader Name Role Phone Marcella Butler CNP Unavailable Elizabeth Hicks MD Primary Care Provider [phone] Elizabeth Hicks MD Unavailable Ranjan Spence MD Unavailable [phone] Encounter Details Date Type Department Care Team (Late st Contact Info) Description 01/30/2025 8:20 AM EST Office Visit [facility] at [address] [address] Ranjan Spence MD [address] [place] [address] [phone] Monoclonal gammopathy (Primary Dx) Social History Tobacco Use Types Packs/Day Years Used Date Smoking Tobacco: Former Cigarettes 1 30 Smokeless Tobacco: Never Alcohol Use Standard Drinks/Week Comments No 0 (1 standard drink = 0.6 oz pur e alcohol) Education Answer Date Recorded Are you interested in more education? Not on rahat e 07/25/2022 Are you concerned about learning? Not on file 07/25/2022 No 07/25/2022 No 07/25/2022 Digital Access Answer Date Recorded No 08/25/2022 No 08/25/2022 Reliable internet access at home? Not on file 08/25/2022 Device with a working camera? Not on file Intimate Partner Violence Answer Date R ecorded Denied Basic Needs Not on file 12/21/2024 In the past 12 months have y ou been in a relationship with a person who hurts, threatens, or tries to control you? No 12/21/2024 Worried food would run out Not on file 12/21 In the past 12 months have y ou been in a relationship with a person who hurts, threatens, or tries to control you? No 12/21/2024 Sex and Gender Information Value Date Recorded Sex Assigned at Male 08/18/2019 10:42 AM EDT Legal Sex Male 10:00 PM EDT Gender Identity Male 08/18/2019 10:42 AM EDT Sexual Orientation Straight 08/18/2019 10 :42 AM EDT documented as of this encounter Last Filed Vital Signs Vital Sign Reading Time Taken Comments Blood Pressure 147/79 01/30/2025 8:21 AM EST Pulse 95 01/30/2025 8:21 AM EST Temperature 35.1 C (95.2 F) 01/30/2025 8:21 AM EST Respiratory Rate - - Oxygen Saturation 97% 01/30/2025 8:21 AM EST Inhaled Oxygen Concentration - - Weight 91 kg (200 lb 11.2 oz) 01/30/2025 8:18 AM EST Height 182.5 cm (5' 11.85 ) 01/30/2025 8:[address] Body Mass Index 27.33 01/30/2025 8:18 AM EST documented in this encounter Progress Notes * Ranjan Spence MD - 01/30/2025 8:20 AM EST Hematology/ Medical Oncology Progress Note [facility] at [facility] Zuhair Hodge 1950 [id number] MEDICAL ONCOLOGIST: Ranjan Spence MD PATIENT IDENTIFICATION: Zuhair Hodge is a 74 y.o. male who is here today for management of MGUS. INTERVAL HISTORY: Eshu returns today for follow-up. Doing well. Energy levels been good. Appetite and weight stable. No bony pain or other pain. No night sweats. No fevers or infectious problems. No bruising or bleeding. No new complaints. REVIEW OF SYSTEMS: Remainder of review of symptoms otherwise unremarkable and unchanged. PHYSICAL EXAM: ECO- Fully active, able to carry on all pre-disease performance without restriction Weight: 91 kg (200 lb 11.2 oz) Height: 182.5 cm (5' 11.85 ) Temperature: 35.1 ??C (95.2 ??F) Heart Rate: 95 BP: (!) 147/79 SpO2: 97 % Physical Exam Constitutional: General: He is not in acute distress. Appearance: He is well-developed. He is not diaphoretic. HENT: Head: Normocephalic and atraumatic. Nose: Nose normal. Eyes: General: No scleral icterus. Cardiovascular: Rate and Rhythm: Normal rate and regular rhythm. Pulmonary: Effort: Pulmonary effort is normal. No respiratory distress. Musculoskeletal: General: No deformity. Normal range of motion. Cervical back: Normal range of motion. Skin: General: Skin is warm and dry. Coloration: Skin is not pale. Findings: No erythema or rash. Neurological: Mental Status: He is alert and oriented to person, place, and time. Psychiatric: Behavior: Behavior normal. Thought Content: Thought content normal. Judgment: Judgment normal. RADIOLOGY: US Abdomen Complete Result Date: 01/04/2025 US ABDOMEN COMPLETE (ADULT) Referring clinician's provided indication for this examination in [facility]:abnormal hepatic function tests; hx of liver bx 10y ago for elev ferritin (normal), now with new transaminitis after long hx of normal LFT's TECHNIQUE: Abdominal Ultrasound Complete. COMPARISON: US ABDOMINAL AORTIC SCREENING FINDINGS: Liver: Diffusely increased echogenicity consistent with fatty liver. No focal lesion. Main Portal Vein: Patent with normal direction of flow. Gallbladder: No gallstones or gallbladder wall thickening. Henderson's Sign: Negative. Biliary: No intrahepatic or extrahepatic biliary ductal dilatation. The common bile duct measures 2 mm. Pancreas: Not well visualized due to overlying bowel gas. Spleen: No splenomegaly. Kidneys: No stones or hydronephrosis. 2right renal cysts the largest in the upper pole measuring 2.7 x 3.1 x 3.1 cm with thin septation. Aorta: Normal, where visualized sonographically. IVC: Normal intrahepatic segment. 1. Fatty liver. 2. Right renal cysts. Radiology results were reviewed personally. Recent lab tests were reviewed personally, discussed with the patient, and are notable for Latest Reference Range & Units 01/24/25 10:18 Sodium 133 - 146 mmol/L 139 Potassium 3.3 - 5.1 mmol/L 4.1 Chloride 96 - 108 mmol/L 103 Carbon Dioxide 21 - 35 mmol/L 24 BUN 6 - 19 mg/dL 18 Creatinine 0.5 - 1.5 mg/dL 1.20 eGFR (Creatinine) >59 mL/min/1.73m2 64 Glucose 70 - 99 mg/dL 107 (H) Anion Gap 10 - 20 mmol/L 16 Albumin 3.9 - 4.8 g/dL 4.5 Bilirubin (Total) 0.0 - 1.2 mg/dL 0.4 Calcium 8.4 - 10.3 mg/dL 9.6 Total Protein 6.5 - 8.0 g/dL 7.6 AST (SGOT) 0 - 37 U/L 45 (H) ALT (SGPT) (U/L) 0 - 40 U/L 30 Alk Phos 39 - 117 U/L 73 Globulin 1 - 4.8 g/dL 3.1 IgM (Timpson) g/dL PENDING IgM (Lambda) g/dL PENDING M Protein PENDING WBC 4.00 - 11.00 K/uL 5.79 RBC 4.50 - 5.90 M/uL 5.89 Hgb 13.5 - 17.5 g/dL 14.0 HCT 41.0 - 53.0 % 46.1 MCV 80.0 - 100.0 fL 78.3 (L) MCH 27.0 - 31.0 pg 23.8 (L) MCHC 32.0 - 36.0 g/dL 30.4 (L) PLT 150 - 450 K/uL 239 MPV 8.4 - 12.0 fL 11.7 RDW 11.5 - 14.5 % 13.2 Diff Method Auto Neutrophils 48.0 - 76.0 % 46.8 (L) Lymphs 18.0 - 41.0 % 40.8 Monos 4.0 - 11.0 % 10.7 Eos 0.0 - 5.0 % 0.9 Basos (auto) 0.0 - 1.5 % 0.3 Granulocytes, immature (%) 0.0 - 0.9 % 0.5 NRBC% (auto) 0.00 /100 WBCs 0.00 Neutrophil # 1.92 - 7.60 K/uL 2.71 Lymph# 0.72 - 4.10 K/uL 2.36 Guthrie# 0.16 - 1.10 K/uL 0.62 Eos# 0.00 - 0.50 K/uL 0.05 Baso# 0.00 - 0.15 K/uL 0.02 Granulocytes, immature 0.00 - 0.09 K/uL 0.03 NRBC#, auto 0.00 K/uL 0.00 IgG 700 - 1,600 mg/dL mg/dL 1,027 PENDING IgA 70 - 400 mg/dL mg/dL 211 PENDING IgM 40 - 230 mg/dL mg/dL 71 PENDING Timpson FLC (mg/dL) 0.3300 - 1.94 mg/dL 1.43 Lambda Free Light Chains (mg/dL) 0.5700 - 2.63 mg/dL 3.83 (H) Free Timpson/Lamda Ratio 0.2600 - 1.65 0.3734 IgA (kappa) g/dL PENDING IgA (lambda) g/dL PENDING Therapeutic Antibody Administered? NO Interpretation (Immunology) PENDING Glycosylation PENDING LAMBDA, IgG g/dL PENDING Timpson, IgG g/dL PENDING B2 microglobulin 0.80 - 2.34 mcg/mL 2.12 (H): Data is abnormally high (L): Data is abnormally low ASSESSMENT AND PLAN: Zuhair Hodge is a 74 y.o. male with monoclonal gammopathy of undeterminedsignificance, currently on yearly follow-up. No signs of disease progression by history or exam. Laboratory data is essentially unchanged from 1 year ago. Normal light chain ratio. M spike is still pending, but total quantitative immunoglobulins are the same. CBC is unchanged. Renal function is unchanged. He will return in 12 months for an in person visit and exam. Repeat MGUS panel approximately 1 weekprior. He will call in the interim with any problems or concerns. I have maintained a long-term, longitudinal relationship with this patient, overseeing care of chronic conditions, including MGUS. This care relationship has significantly influenced my decision-making and treatment plans during today's encounter. Problem List Items Addressed This Visit Hematology and Oncology Monoclonal gammopathy - Primary Relevant Orders Light Chains, Free, Serum Beta-2 Microglobulin, Blood CBC and Differential Comprehensive Metabolic Panel (CMP) Immunoglobulin A Immunoglobulin G Immunoglobulin M Serum Protein Electrophoresis (SPEP) Panel, with Immunofixation I personally spent 30 minutes preparing for this encounter, caring for the patient ([id number] and [id number]), and finalizing the visit for this patient, including completion of records, note and line ordering clinician. Zuhair will return in 1 year for follow-up visit. He knows to contact me if anything should change in the interim. Ranjan Spence MD [facility] at [address] [address] documented in this encounter Plan of Treatment Upcoming Encounters Date Type Department Care Team (Late st Contact Info) Description 06/12/2025 11:00 AM EDT Office Visit [facility] [address] [place] [address] 3rd Floor, [address] [place] [address] Keny Lama DO [address] [address] 06/29/2025 11:00 AM EDT Office Visit [facility] [address] [place] [address] Bryant Carlsno, DO [address] [place] [address] 02/01/2026 9:20 AM EST Office Visit [facility] at [address] [address] Ranjan Spence MD [address] [place] [id number] Scheduled Orders Name Type Priority Associated Diagnoses Orde r Schedule Light Chains, Free, Serum Lab Routine Monoclonal gammopathy Expected: 01/30/2025, Expires: 01/30/2026 Beta-2 Microglobulin, Blood Lab Routine Monoclonal gammopathy Expected: 01/30/2025, Expires: 01/30/2026 CBC and Differential Lab Routine Monoclonal gammopathy Expected: 01/30/2025, Expires: 01/30/2026 Comprehensive Metabolic Panel (CMP) Lab Routine Monoclonal gammopathy Expected: 01/30/2025, Expires: 01/30/2026 Immunoglobulin A Lab Routine Monoclonal gammopathy Expected: 01/30/2025, Expires: 01/30/2026 Immunoglobulin G Lab Routine Monoclonal gammopathy Expected: 01/30/2025, Expires: 01/30/2026 Immunoglobulin M Lab Routine Monoclonal gammopathy Expected: 01/30/2025, Expires: 01/30/2026 Serum Protein Electrophoresis (SPEP) Panel, with Immunofixation Lab Routine Monoclonal gammopathy Expected: 01/30/2025, Expires: 01/30/2026 documented as of this encounter Visit Diagnoses Diagnosis Monoclonal gammopathy- Primary Monoclonal paraproteinemia documented in this encounter Additional Health Concerns Assessment Noted Time PHQ-2 Depression Total Score: 0 12/22/19 25 10:25 AM EDT documented as of this encounter Care Teams Olive Grader Relationship Specialty Start Date End Date Elizabeth Hicks MD [address] [place] [address] [address] [place] [address] [email or web address] PCP - General Family Medicine 04/09/21 Marcella Butler CNP [address] [place] [address], [address] [place] [address] [email or web address] Historical LMR Provider 01/17/17 Elizabeth Hicks MD [address] [place] [address] 7 [place] [address] [email or web address] Insurance Assigned Provider 07/04/23 Ranjan Spence MD [address] [place] [address] [email or web address] Primary Oncologist Medical Oncology 06/12/22 documented as of this encounter Additional Source Comments The information contained in this document represents components of the legal health record. It is not the complete legal health record.[facility]
--- NOTE | 2025-02-01 11:27 | A.OFFVIS_ITS ---
Intake Visit Reasons: 6m/UA/PVR Intake Note: Patient is present for PVR/Urinalysis Urology Med: Methenamine, Bethanechol, Tamsulosin Antibiotic Allergy: None Blood Thinner: None PVR: 297ml Wig Stylist Required: No Accompanied by: Self / Same As Patient Allergies nut - unspecified (NUTS) Allergy (Mild, Verified 02/01/25 11:30) THROAT RODRIGUEZ pollen extracts (POLLEN) Allergy (Mild, Verified 02/01/25 11:30) Nasal congestion GRASS Allergy (Mild, Uncoded 02/01/25 11:30) Nasal congestion HPI Comments Details: Hany POLLOCK is a very pleasant male. He is a patient of Dr Hicks. He is seen in the office today for the following urologic conditions. - neurogenic bladder - nephrolithiasis Six-month follow-up Moderate residual 300 cc Would continue with bethanechol and methenamine Six-month follow-up if remained stable we will takeoff medications Neurogenic Bladder: Had been seeing every 6 months He thinks he is doing okay emptying his bladder He knows he is going to have a large residual in his bladder Will see again in 12 months with repeat ultrasound He knows how to do CIC if he finds himself in trouble 01/14 PSA 2.0. They are here for further management for incomplete emptying neurogenic bladder. Urinary retention initially found after ER visit for spontaneous retention - 10/13 with 2L residual - PVR in office 350cc - have been present for indeterminate period of time - PVR 12/14 325 - PSA 11/13 10 - PSA 02/13 2.5 - PSA 01/14 2.0 PVR on bladder US 325cc, max is 750cc - 01/15 PVR 350 cc Cystoscopy results 12/14 prostate small Current management alpha blockers. Therapeutic plan continue with medication. Nephrolithiasis/Urolithiasis: They are here for further evaluation of nephrolithiasis and right renal cysts - labs and imaging discussed. Urolithiasis was diagnosed 06/08/17 - [facility] with flank pain and discomfort. Controlled with medication. On flomax at baseline.. The patient previously had kidney stones whose composition w unknown. Laboratory investigations include no recent labs. 24 Hour urine evaluation none on file. Prior treatment(s) include 06/14 MET. Prior imaging includes 06/14 , a CT (computed tomography) scan of the abdomen/pelvis (stone protocol), showing radiodense stone(s), showing ureteral stone(s), on the right, 2-5 mm, hydronephrosis mild in severity 07/15 , a renal ultrasound, normal, no stones 01/14 , a renal ultrasound, showing no evidence of stones, multiple bilateral cysts 1-2 cm - 09/18 renal ultrasound bilateral cysts no evidence of stones - 08/19 renal ultrasound no evidence of stones Current therapeutic plan will be to continue with imaging surveillance [facility] Medical History Kidney stones Surgical hypoparathyroidism BPH (benign prostatic hyperplasia) Urinary retention Spinal stenosis BPH w urinary obs/LUTS Surgical History Hx of tonsillectomy History of surgery on arm Hx of parathyroidectomy History of back surgery H/O shoulder surgery Social History Household Members: Significant Other Housing: House Do you presently have visiting nurse or other home services: No Alcohol intake: former Patient Tobacco Use Status: Former Tobacco user service: No Review of Systems Const Denies chills and Denies fever(s) Card Reports no additional complaints and Denies syncope Resp Denies cough GI Denies abdominal pain and Denies heartburn Reports as per HPI and Denies change in libido Neuro Denies syncope Psych Denies change in libido Endo Denies change in libido Physical Exam Const General: cooperative, healthy appearing, comfortable and no acute distress Orientation/consciousness: patient oriented x3 HEENT Face and sinus: Yes normal facial exam Mouth: moist mucous membranes Neck Neck: Yes normal visual inspection, Yes full ROM and Yes trachea midline Chest Chest palpation & inspection: normal inspection of the chest Resp Effort & Inspection: normal respiratory effort, able to speak in complete sentences and no respiratory distress GI Inspection: Yes normal to inspection Back/Spine/Pelvis Cervical Spine: normal cervical lordosis Thoracic/Lumbar Spine: thoracic and lumbar spine normal to inspection Skin General skin exam: no rashes or lesions noted Neuro General: patient oriented x3, gait normal, tone normal and moves all extremities Extrem General: Yes normal to inspection and Yes capillary refill normal Office Procedures Post Void Residual Post Residual Void Post Void Residual (PVR): 297 [id number] Void Residual by ultrasound Results AMB Urinalysis, Automated UA Leukoctes 0 Kinza/uL Last Edit by Estelle Varghese, [facility] on 02/01/25 11:40 UA Nitrite Negative Last Edit by Estelle Varghese, A on 02/01/25 11:40 UA Urobilinogen 0.2 mg/dL Last Edit by Estelle Varghese, A on 02/01/25 11:4 0 UA Protein 15 mg/dL Last Edit by Estelle Varghese, A on 02/01/25 11:40 UA pH 7.0 Last Edit by Estelle Varghese, A on 02/01/25 11:40 UA Blood 0 Lloyd/uL Last Edit by Estelle Varghese, [facility] on 02/01/25 11:40 UA Specific [place] 1.010 Last Edit by Estelle Varghese, A on 02/01/25 11: 40 UA Ketone Negative Last Edit by Estelle Varghese, [facility] on 02/01/25 11:40 UA Bilirubin 0 mg/dL Last Edit by Estelle Varghese, A on 02/01/25 11:40 UA Glucose 0 mg/dL Last Edit by Estelle Varghese, A on 02/01/25 11:40 Results Reviewed Results Reviewed: Laboratory Last Values Urine pH (Auto) 7.0 02/01/25 11:30 Specific [place] (Auto) 1.010 02/01/25 11:30 Urine Protein (Auto) 15 mg/dL 02/01/25 11:30 Glucose (UA)(Auto) 0 mg/dL 02/01/25 11:30 Urine Ketones (Auto) Negative 02/01/25 11:30 Urine Blood (Auto) 0 Lloyd/uL 02/01/25 11:30 Urine Nitrite (Auto) Negative 02/01/25 11:30 Urine Bilirubin (Auto) 0 mg/dL 02/01/25 11:30 Urine Urobilinogen (Auto) 0.2 mg/dL 02/01/25 11:30 Leukocyte Esterase (Auto) 0 Kinza/uL 02/01/25 11:30 Assessment & Plan Assessment & Plan (1) Urinary retention: Code(s): R33.9 - Retention of urine, unspecified Category: Medical (2) BPH w urinary obs/LUTS: Code(s): N40.1 - Benign prostatic hyperplasia with lower urinary tract symptoms; N13.8 - Other obstructive and reflux uropathy Category: Medical Plan Six-month follow-up PVR and UA Orders: Orders AMB Post Void Residual by ultrasound Today N13.8 - Other obstructive and reflux uropathy, N40.1 - Benign prostatic hyperplasia with lower urinary tract symptoms AMB Urinalysis Automated Today Z13.9 - Encounter for screening, unspecified Medications: Refilled methenamine hippurate 1 g PO DAILY 90 tabs 1RF 90 days N39.0 - Urinary tract infection, site not specified, R33.9 - Retention of urine, unspecified bethanechol chloride 50 mg PO BID 180 tabs 1RF 90 days N39.0 - Urinary tract infection, site not specified, R33.9 - Retention of urine, unspecified Discontinued tamsulosin Discontinued Reason: Patient Completed Course 0.4 mg PO BEDTIME 90 days 90 caps 1RF Patient Instructions: This note is constructed using voice recognition software. While every effort has been made to ensure accuracy bilingual branch manager errors may have been included. Imaging studies, laboratory and physical exam results were discussed and reviewed in detail. No major barriers to patient understanding were identified. An opportunity to ask questions regarding the treatment plan was provided. All questions were answered. The patient expressed understanding and agreement with the above treatment plan. The patient is aware they should contact our office by phone for worsening of their current condition or the appearance of new urologic symptoms. Compliance is encouraged with any medications and followup testing that is ordered. It is a privilege to participate in the urologic care of your patient. If you have any questions or concerns regarding treatment for the above conditions, or other urologic issues, please do not hesitate to contact me. The office telephone contact is [phone]. Sincerely, Dr Marco Arriola MD, MAHIN [facility] - Urology Compassionate Specialist Care for the Genitourinary System Coding Level of Care Code Est Pt Level 3 (41656) Complex EM visit Add On G2211 Diagnoses Urinary retention R33.9 BPH w urinary obs/LUTS N40.1; N13.8 CPT Codes Post Residual Void - PVR CPT Code: 82954-Pobo Void Residual by ultrasound ([id number])
--- OUTSIDE RECORDS SUMMARY | 2025-02-01 13:51 | XMS_ITS | Encounter Summary ---
Author Organization [facility] Address [address] [place] [address] Phone Care Team Providers Care Lift Slab Operator Name Role Phone Marcella Butler RN MILITARY Unavailable [phone] Elizabeth Hicks MD Primary Care Provider Elizabeth Hicks MD Unavailable [phone] Ranjan Spence MD Unavailable [phone] Encounter Details Date Type Department Care Team (Late st Contact Info) Description 05/05/2022 Procedure Pass [facility], [address] [address] Social History Tobacco Use Types Packs/Day Years Used Date Smoking Tobacco: Former Cigarettes 1 30 Smokeless Tobacco: Never Alcohol Use Standard Drinks/Week Comments No 0 (1 standard drink = 0.6 oz pur e alcohol) Sex and Gender Information Value Date Recorded Sex Assigned at Male 08/18/2019 10:42 AM EDT Legal Sex Male 10:00 PM EDT Gender Identity Male 08/18/2019 10:42 AM EDT Sexual Orientation Straight 08/18/2019 10 :42 AM EDT documented as of this encounter Plan of Treatment Upcoming Encounters Date Type Department Care Team (Late st Contact Info) Description 06/12/2025 11:00 AM EDT Office Visit [facility] [address] [place] [address] 3rd Floor, [address] [place] [address] Keny Lama DO [address] [facility] [address] [place] [address] 06/29/2025 11:00 AM EDT Office Visit [facility] [address] [place] [address] Bryant Carlson DO [address] [place] [address] [email or web address] 02/01/2026 9:20 AM EST Office Visit [facility] [address] [place] [address] Ranjan Spence MD [address] [place] [address] documented as of this encounter Visit Diagnoses Not on filedocumented in this encounter Additional Health Concerns Assessment Noted Time PHQ-2 Depression Total Score: 1 09/02/19 18 11:31 AM EDT documented as of this encounter Care Teams Lift Slab Operator Relationship Specialty Start Date End Date Elizabeth Hicks MD [address] [place] [address] [address] [place] [address] PCP - General Family Medicine 04/09/21 Marcella Butler CNP [address] [facility], 2nd [place] [address] Historical LMR Provider 01/17/17 Elizabeth Hicks MD [address] [place] [address] [address] [place] [address] [email or web address] Insurance Assigned Provider 07/04/23 Ranjan Spence MD [address] [place] [address] [email or web address] Primary Oncologist Medical Oncology 06/12/22 documented as of this encounter Additional Source Comments The information contained in this document represents components of the legal health record. It is not the complete legal health record.[facility]
--- OUTSIDE RECORDS SUMMARY | 2025-02-01 13:51 | XMS_ITS | Encounter Summary ---
Author Organization [facility] Address [address] [facility] [address] [place] [address] Phone Care Team Providers Care All Source Intelligence Technician Name Role Phone Bobbi Correa NP Unavailable Maisha Riley DO Unavailable Marcella Butler CONSTRUCTION ENGINEERING MANAGER Unavailable Mike Glover MD Unavailable Delfin Johns MD Unavailable Robbin Watson DO Unavailable Mu Corcoran MD Unavailable Carli Mason MD Unavailable Pavel Mora MD Unavailable Ronnie Sifuentes MD Unavailable Herb Mason MD Unavailable Ronnie Sifuentes MD Primary Care Provider [phone] Ronnie Sifuentes MD Unavailable Elizabeth Hicks MD Primary Care Provider [phone] Ronnie Sifuentes MD Unavailable Elizabeth Hicks MD Unavailable Ranjan Spence MD Unavailable [phone] Encounter Details Date Type Department Care Team (Late st Contact Info) Description 09/18/2017 Ancillary Orders [facility] 4 [place] [address] Robbin Watson DO 4 [facility] Orthopedics & Sports Medicine, [facility] [place] [address] Right hip pain Social History Tobacco Use Types Packs/Day Years Used Date Smoking Tobacco: Former Smokeless Tobacco: Never Alcohol Use Standard Drinks/Week [...] Description 06/12/2025 11:00 AM EDT Office Visit [facility] [address] [place] [address] 3rd Floor, [address] [place] [address] Keny Lama DO [address] [address] 06/29/2025 11:00 AM EDT Office Visit [facility] 234 [place] [address] Bryant Carlson, DO 234 [place] [address] 02/01/2026 9:20 AM EST Office Visit [facility] 30 [place] [address] Ranjan Spence MD 30 [place] [address] [email or web address] documented as of this encounter Results * XR HIP 2 VW RIGHT PLUS PELVIS (09/22/2017 2:58 PM EDT) Narrative Nancy Sullivan - 09/22/2017 2:58 PM EDT This image report has been auto-finalized and has not been read by a Radiologist. Interpretation has been included in the provider encounter note for this date of service. us Robbin Deondre Shirley IMG XR PELVIS Final Resul t documented in this encounter Visit Diagnoses Diagnosis Right hip pain Pain in joint, pelvic region and thigh Right hip pain Pain in joint, pelvic region and thigh documented in this encounter Additional Health Concerns Assessment Noted Time PHQ-2 Depression Total Score: 1 09/02/19 18 11:31 AM EDT documented as of this encounter Care Teams All Source Intelligence Technician Relationship Specialty Start Date End Date Ronnie Sifuentes MD [address] [place], [place] [address] [place] [address] [email or web address] PCP - General 01/23/17 04/08/21 Elizabeth Hicks MD [address] [place] [address] 7 [place] [address] [email or web address] PCP - General Family Medicine 04/09/21 Bobbi Correa NP 1 [place] [address] Historical LMR Provider 01/17/17 2 Maisha Riley DO [address] [place] [address] [address] [place] [address] [email or web address] Historical LMR Provider 01/17/17 04/06/21 Marcella Butler, CONSTRUCTION ENGINEERING MANAGER 15 [facility], 2nd [place] [address] [email or web address] Historical LMR Provider 01/17/17 Mike Glover MD [address] [place] [address] Historical LMR Provider 01/17/17 9 Delfin Johns MD 22 [facility], [address] [place] [address] [email or web address] Historical LMR Provider 01/17/17 04/06/21 Robbin Watson DO [address] [place] [address] Orthopedics & Sports Medicine, [place] [address] [email or web address] Historical LMR Provider 01/17/17 04/06/21 Mu Corcoran MD [address] [place] [address] [email or web address] Historical LMR Provider 01/17/17 9 Carli Mason MD [address] [place] [address] 7 [place] [address] [email or web address] Historical LMR Provider 01/17/17 04/06/21 Pavel Mora MD [address] [place] [address] [address] [place] [address] Historical LMR Provider 01/17/17 2 Ronnie Sifuentes MD [address] [place], [place] [address] [place] [address] [email or web address] Historical LMR Provider 01/17/17 03/31/18 Herb Mason MD [address] [place] [address] Historical LMR Provider 01/17/17 Ronnie Sifuentes MD [address] [place] [address] [address] [place] [address] [email or web address] Insurance Assigned Provider 06/27/17 03/31/18 Ronnie Sifuentes MD [address] [place] [address] [address] [place] [address] [email or web address] Insurance Assigned Provider 06/27/17 07/06/21 Elizabeth Hicks MD [address] [place] [address] [address] [place] [address] [email or web address] Insurance Assigned Provider 07/04/23 Ranjan Spence MD [address] [place] [address] [email or web address] Primary Oncologist Medical Oncology 06/12/22 documented as of this encounter Additional Source Comments The information contained in this document represents components of the legal health record. It is not the complete legal health record.[facility]
--- OUTSIDE RECORDS SUMMARY | 2025-02-01 13:51 | XMS_ITS | Encounter Summary ---
Author Organization [facility] Address [address] [employer] [address] [place] [address] Phone Care Team Providers Care Cross Roller Name Role Phone Marcella Butler CNP Unavailable Elizabeth Hicks MD Primary Care Provider [phone] Elizabeth Hicks MD Unavailable Ranjan Spence MD Unavailable [phone] Reason for Visit * Reason Onset Date Comments Labs 01/11/2025 Encounter Details Date Type Department Care Team (Late st Contact Info) Description 01/11/2025 Telephone [place] [address] [place] [address] Elizabeth Hicks MD [address] [place] [address], [address] [place], [place] [id number] [email or web address] Social History Tobacco Use Types Packs/Day Years [...] AM EDT documented as of this encounter Progress Notes * Augie Wolfe - 01/11/2025 1:10 PM EDT [facility] called in re: the add on lab for Hep C, there is not enough serum for the testing, they cannot complete the test. Central Support Ob/Gyn Physician (Please do not reply to this user; this inbox is not monitored.) Thank you. documented in this encounter Plan of Treatment Upcoming Encounters Date Type Department Care Team (Late st Contact Info) Description 06/12/2025 11:00 AM EDT Office Visit [facility] 22 [facility] 3rd Floor, [address] [place] [address] Keny Lama DO 22 [facility] [address] [place] [address] 06/29/2025 11:00 AM EDT Office Visit [facility] 234 [place] [address] Bryant Carlson, 234 [place] [address] 02/01/2026 9:20 AM EST Office Visit [facility] 30 [place] [address] Ranjan Spence MD [address] [place] [address] documented as of this encounter Visit Diagnoses Not on filedocumented in this encounter Additional Health Concerns Assessment Noted Time PHQ-2 Depression Total Score: 0 12/22/19 25 10:25 AM EDT documented as of this encounter Care Teams Cross Roller Relationship Specialty Start Date End Date Elizabeth Hicks MD [address] [place] [address] 7 [place] [address] PCP - General Family Medicine 04/09/21 Marcella Butler CNP 15 [facility], 2nd [place] [address] Historical LMR Provider 01/17/17 Elizabeth Hicks MD [address] [place] [address] 7 [place] [address] Insurance Assigned Provider 07/04/23 Ranjan Spence MD [address] [place] [address] Primary Oncologist Medical Oncology 06/12/22 documented as of this encounter Additional Source Comments The information contained in this document represents components of the legal health record. It is not the complete legal health record.[facility]
--- OUTSIDE RECORDS SUMMARY | 2025-02-01 13:51 | XMS_ITS | Encounter Summary ---
Author Organization [facility] Address [address] [employer] [address] [address] Phone Care Team Providers Care Private Eye Name Role Phone Bobbi Correa NP Unavailable [phone] Maisha Riley DO Unavailable [phone] Marcella Butler A P MANAGER Unavailable [phone] Delfin Johns MD Unavailable Robbin Watson DO Unavailable [phone] Carli Mason MD Unavailable [phone] Pavel Mora MD Unavailable Herb Mason MD Unavailable [phone] Ronnie Sifuentes MD Primary Care Provider Elizabeth Hicks MD Primary Care Provider Ronnie Sifuentes MD Unavailable Elizabeth Hicks MD Unavailable Ranjan Spence MD Unavailable [phone] Reason for Referral * Physical Therapy (Elective) - Closed Specialty Diagnoses / Procedures Referred By Mickey t Referred To Contact Physical Therapy Diagnoses Encounter for rehabilitation Left Shoulder Procedures Evaluate & Treat System, Provider Not In, PhD [address] 30 [place] [address] Phone: tel: Referral ID Status Reason Start Date Expiration Date Visits Re quested Visits Authorized [id number] Closed 05/06/2018 03/29/2019 99 99 Encounter Details Date Type Department Care Team (Latest Contact Info) Description 05/06/2018 Transcribe Orders [facility] 4 [place] [address] Tayler Saleh MD [address] [place] [address] Encounter for rehabilitation (Primary Dx) Social History Tobacco Use Types [...] Description 06/12/2025 11:00 AM EDT Office Visit [facility] [address] [place] [address] 3rd Floor, [address] [place] [address] Keny Lama DO [address] [address] 06/29/2025 11:00 AM EDT Office Visit [facility] 234 [place] [address] Bryant Carlson DO 234 [place] [address] 02/01/2026 9:20 AM EST Office [facility] 30 [place] [address] Ranjan Spence MD 30 [place] [address] [email or web address] documented as of this encounter Procedures Procedure Name Priority Date/Time Associated Diagnosis Comments AMB REFERRAL TO [facility] PHYSICAL THERAPY Routine 05/11/2018 1:47 PM EST Encounter for rehabilitation documented in this encounter Results * Ambulatory referral to [facility] Physical Therapy (05/11/2018 1:47 PM EST) us Provider Not In System PhD AMB [facility] REFERRALS Fin al Result documented in this encounter Visit Diagnoses Diagnosis Encounter for rehabilitation- Primary documented in this encounter Additional Health Concerns Assessment Noted Time PHQ-2 Depression Total Score: 1 09/02/19 18 11:31 AM EDT documented as of this encounter Care Teams Private Eye Relationship Specialty Start Date End Date Ronnie Sifuentes MD [address] [place], [place] [address] [place] [address] [email or web address] PCP - General 01/23/17 04/08/21 Elizabeth Hicks MD [address] [place] [address] 7 [place] [address] [email or web address] PCP - General Family Medicine 04/09/21 Bobbi Correa NP 1 [place] [address] Historical LMR Provider 01/17/17 2 Maisha Riley DO [address] [place] [address] [address] [place] [address] [email or web address] Historical LMR Provider 01/17/17 04/06/21 Marcella Butler, A P MANAGER 15 [facility], 2nd [place] [address] [email or web address] Historical LMR Provider 01/17/17 Delfin Johns MD 22 [facility], [address] [place] [address] [email or web address] Historical LMR Provider 01/17/17 04/06/21 Robbin Watson DO [address] [place] [address] Orthopedics & Sports Medicine, [place] [address] [email or web address] Historical LMR Provider 01/17/17 04/06/21 Carli Mason MD [address] [place] [address] 7 [place] [address] [email or web address] Historical LMR Provider 01/17/17 04/06/21 Pavel Mora MD [address] [place] [address] Historical LMR Provider 01/17/17 2 Hebr Mason MD [address] [place] [address] Historical LMR Provider 01/17/17 Ronnie Sifuentes MD [address] [place], [place] [address] [place] [address] [email or web address] Insurance Assigned Provider 06/27/17 07/06/21 Elizabeth Hicks MD [address] [place] [address] 7 [place] [address] [email or web address] Insurance Assigned Provider 07/04/23 Ranjan Spence MD [address] [place] [address] [email or web address] Primary Oncologist Medical Oncology 06/12/22 documented as of this encounter Additional Source Comments The information contained in this document represents components of the legal health record. It is not the complete legal health record.[facility]
--- OUTSIDE RECORDS SUMMARY | 2025-02-01 13:51 | XMS_ITS | Encounter Summary ---
Author Organization [facility] Address [address] [employer] [address] [address] Phone Care Team Providers Care Cutter Finisher Name Role Phone Ronnie Sifuentes MD Primary Care Provider Bobbi Correa DIESEL PILE HAMMER OPERATOR Unavailable Maisha Riley DO Unavailable [phone] Luke Marcellahenrique Gibbs HIGH DENSITY FINISHING OPERATOR Unavailable Mike Glover MD Unavailable Delfin Johns MD Unavailable Robbin Watson DO Unavailable Mu Corcoran MD Unavailable Carli Mason MD Unavailable Pavel Mora MD Unavailable Ronnie Sifuentes MD Unavailable Herb Mason MD Unavailable Ronnie Sifuentes MD Primary Care Provider [phone] Ronnie Sifuentes MD Unavailable Dana'Elizabeth Nye MD Primary Care Provider [phone] Ronnie Sifuentes MD Unavailable Elizabeth Hicks MD Unavailable Ranjan Spence MD Unavailable [phone] Encounter Details Date Type Department Care Team (Late st Contact Info) Description 01/22/2017 Procedure Pass [facility], [facility] 30 [place] [address] Social History Tobacco Use Types Packs/Day Years Used Date Smoking Tobacco: Never Assessed Sex and Gender Information Value Date Recorded Sex Assigned at Male 08/18/2019 10:42 AM EDT Legal Sex Male 10:00 PM EDT Gender Identity Male 08/18/2019 10:42 AM EDT Sexual Orientation Straight 08/18/2019 10 :42 AM EDT documented as of this encounter Plan of Treatment Upcoming Encounters Date Type Department Care Team (Late Contact Info) Description 06/12/2025 11:00 AM EDT Office Visit [facility] [address] [place] [address] 3rd Floor, [address] [place] [address] Keny Lama DO 22 [facility] [address] [place] [address] 06/29/2025 11:00 AM EDT Office Visit [facility] 234 [place] [address] Bryant Carlson DO 234 [place] [address] 02/01/2026 9:20 AM EST Office Visit [facility] 30 [place] [address] Ranjan Spence MD 30 [place] [address] documented as of this encounter Visit Diagnoses Not on filedocumented in this encounter Care Teams Cutter Finisher Relationship Specialty Start Date End Date Ronnie Sifuentes MD [address] [place], [place] [address] [place] [address] [email or web address] PCP - General 01/15/17 01/22/17 Ronnie Sifuentes MD [address] [place] [address] [address] [place] [id number] [email or web address] PCP - General 01/23/17 04/08/21 Elizabeth Hicks MD [address] [place] [address] 7 [place] [address] [email or web address] PCP - General Family Medicine 04/09/21 Bobbi Correa NP [address] [place] [address] Historical LMR Provider 01/17/17 2 Maisha Riley DO [address] [place] [address] 7 [place] [address] Historical LMR Provider 01/17/17 04/06/21 Marcella Butler CNP [address] [place] [address], 2nd [place] [address] Historical LMR Provider 01/17/17 Mike Glover MD [address] [place] [address] Historical LMR Provider 01/17/17 Delfin Krueger MD [address] [place] [address] 301 [place] [address] [email or web address] Historical LMR Provider 01/17/17 04/06/21 Robbin Watson DO [address] [place] [address] Orthopedics & Sports Medicine, [facility] [place] [address] [email or web address] Historical LMR Provider 01/17/17 04/06/21 Mu Corcoran MD [address] [place] [address] [email or web address] Historical LMR Provider 01/17/17 9 Carli Mason MD [address] [place] [address] 7 [place] [address] [email or web address] Historical LMR Provider 01/17/17 04/06/21 [place] [address] [place] [address] Historical LMR Provider 01/17/17 2 Ronnie Sifuentes MD [address] [place] [address] [address] [place] [address] [email or web address] Historical LMR Provider 01/17/17 03/31/18 Herb Mason MD [address] [place] [address] Historical LMR Provider 01/17/17 Ronnie Sifuentes MD [address] [place] [address] [address] [place] [address] [email or web address] Insurance Assigned Provider 06/27/17 03/31/18 Ronnie Sifuentes MD [address] [place] [address] [address] [place] [address] [email or web address] Insurance Assigned Provider 06/27/17 07/06/21 Elizabeth Hicks MD [address] [place] [address] [address] [place] [address] [email or web address] Insurance Assigned Provider 07/04/23 Ranjan Spence MD [address] [place] [address] [email or web address] Primary Oncologist Medical Oncology 06/12/22 documented as of this encounter Additional Source Comments The information contained in this document represents components of the legal health record. It is not the complete legal health record.[facility]
--- OUTSIDE RECORDS SUMMARY | 2025-02-01 13:51 | XMS_ITS | Encounter Summary ---
Author Organization [facility] Address [address] [facility] [address] [place] [address] Phone Care Team Providers Care Tube Laser Operator Name Role Phone Bobbi Correa NP Unavailable Maisha Riley DO Unavailable Marcella Butler [employer] Unavailable Mike Glover MD Unavailable Delfin Johns MD Unavailable Robbin Watson DO Unavailable Mu Corcoran MD Unavailable Carli Mason MD Unavailable Pavel Mora MD Unavailable Ronnie Sifuentes MD Unavailable Herb Mason MD Unavailable Ronnie Sifuentes MD Primary Care Provider [phone] Ronnie Sifuentes MD Unavailable Elizabeth Hicks MD Primary Care Provider [phone] Ronnie Sifuentes MD Unavailable Elizabeth Hicks MD Unavailable Ranjan Spence MD Unavailable [phone] Encounter Details Date Type Department Care Team (Late st Contact Info) Description 09/18/2017 Ancillary Orders [facility] Orthopedics & Sports Medicine [address] [place] [address] Robbin Watson DO 4 [facility] Orthopedics & Sports Medicine, [facility] [place] [address] Social History Tobacco Use Types Packs/Day Years [...] Description 06/12/2025 11:00 AM EDT Office Visit [facility] [address] [place] [address] 3rd Floor, [address] [place] [address] Keny Lama DO 22 [facility] [address] [place] [address] 06/29/2025 11:00 AM EDT Office Visit [facility] 234 [place] [address] Bryant Carlson DO 234 [place] [address] 02/01/2026 9:20 AM EST Office Visit [facility] 30 [place] [address] Ranjan Spence MD 30 [place] [address] [email or web address] documented as of this encounter Visit Diagnoses Not on filedocumented in this encounter Additional Health Concerns Assessment Noted Time PHQ-2 Depression Total Score: 1 09/02/19 18 11:31 AM EDT documented as of this encounter Care Teams Tube Laser Operator Relationship Specialty Start Date End Date Ronnie Sifuentes MD [address] [place] [address] [address] [place] [address] [email or web address] PCP - General 01/23/17 04/08/21 Elizabeth Hicks MD [address] [place] [address] 7 [place] [address] [email or web address] PCP - General Family Medicine 04/09/21 Bobbi Correa NP 1 [place] [address] Historical LMR Provider 01/17/17 2 Maisha Riley DO [address] [place] [address] 7 [place] [address] Historical LMR Provider 01/17/17 04/06/21 Marcella Butler, ADELE [address] [place] [address], 2nd [place] [address] Historical LMR Provider 01/17/17 Mike Glover MD [address] [place] [address] Historical LMR Provider 01/17/17 Delfin Krueger MD [address] [place] [address] [address] [place] [address] [email or web address] Historical LMR Provider 01/17/17 04/06/21 Robbin Watson DO [address] [place] [address] Orthopedics & Sports Medicine, [facility] [place] [address] [email or web address] Historical LMR Provider 01/17/17 04/06/21 Mu Corcoran MD [address] [place] [address] [email or web address] Historical LMR Provider 01/17/17 Carli Mason MD [address] [place] [address] 7 [place] [address] [email or web address] Historical LMR Provider 01/17/17 04/06/21 Pavel Mora MD [address] [place] [address] Historical LMR Provider 01/17/17 2 Ronnie Sifuentes MD [address] [place], [place] [address] [place] [address] [email or web address] Historical LMR Provider 01/17/17 03/31/18 Herb Mason MD [address] [place] [address] Historical LMR Provider 01/17/17 Ronnie Sifuentes MD [address] [place], [place] [address] [place] [address] [email or web address] Insurance Assigned Provider 06/27/17 03/31/18 Ronnie Sifuentes MD [address] [place] [address] [address] [place] [address] [email or web address] Insurance Assigned Provider 06/27/17 07/06/21 Elizabeth Hicks MD [address] [place] [address], [address] [place] [address] [email or web address] Insurance Assigned Provider 07/04/23 Ranjan Spence MD [address] [place] [address] [email or web address] Primary Oncologist Medical Oncology 06/12/22 documented as of this encounter Additional Source Comments The information contained in this document represents components of the legal health record. It is not the complete legal health record.[facility]
--- OUTSIDE RECORDS SUMMARY | 2025-02-01 13:51 | XMS_ITS | Encounter Summary ---
Author Organization [facility] Address [address] [facility] [address] [place] [address] Phone Care Team Providers Care Agricultural Equipment Operator Name Role Phone Bobbi Correa NP Unavailable Maisha Riley DO Unavailable Marcella Butler APARTMENT COMMUNITY MANAGER Unavailable Delfin Johns MD Unavailable Robbin Watson DO Unavailable Carli Mason MD Unavailable Pavel Mora MD Unavailable Herb Mason MD Unavailable Ronnie Sifuentes MD Primary Care Provider [phone] Elizabeth Hicks MD Primary Care Provider [phone] Ronnie Sifuentes MD Unavailable Elizabeth Hicks MD Unavailable Ranjan Spence MD Unavailable [phone] Encounter Details Date Type Department Care Team (Late st Contact Info) Description 12/01/2019 Procedure Pass [facility], [address] [address] Social History Tobacco Use Types Packs/Day Years [...] Description 06/12/2025 11:00 AM EDT Office Visit [facility] [address] [facility] [address]rd Floor, [address] [place] [address] Keny Lama DO [address] [facility] [address] [place] [address] 06/29/2025 11:00 AM EDT Office Visit [facility] [address] [place] [address] Bryant Carlson DO [address] [place] [address] 02/01/2026 9:20 AM EST Office Visit [facility] [address] [place] [address] Ranjan Spence MD [address] [place] [address] documented as of this encounter Visit Diagnoses Not on filedocumented in this encounter Additional Health Concerns Assessment Noted Time PHQ-2 Depression Total Score: 1 09/02/19 11:31 AM EDT documented as of this encounter Care Teams Agricultural Equipment Operator Relationship Specialty Start Date End Date Ronnie Sifuentes MD [address] [place] [address] [address] [place] [address] [email or web address] PCP - General 01/23/17 04/08/21 Elizabeth Hicks MD [address] [place] [address] 7 [place] [address] [email or web address] PCP - General Family Medicine 04/09/21 Bobbi Correa NP 1 [place] [address] Historical LMR Provider 01/17/17 2 Maisha Riley DO [address] [place] [address] Historical LMR Provider 01/17/17 04/06/21 Marcella Butler, ADELE [address] [place] [address], 2nd [place] [address] Historical LMR Provider 01/17/17 Delfin Johns MD [address] [place] [address] [address] [place] [address] Historical LMR Provider 01/17/17 04/06/21 Robbin Watson DO [address] [place] [address] Orthopedics & Sports Medicine, [facility] [place] [address] Historical LMR Provider 01/17/17 04/06/21 Carli Mason MD [address] [place] [address] 7 [place] [address] Historical LMR Provider 01/17/17 04/06/21 Pavel Mora MD [address] [facility] [address] [place] [address] Historical LMR Provider 01/17/17 2 Herb Mason MD [address] [place] [address] Historical LMR Provider 01/17/17 Ronnie Sifuentes MD [address] [facility] [address] [place] [address] [email or web address] Insurance Assigned Provider 06/27/17 07/06/21 Elizabeth Hicks MD [address] [facility] 7 [place] [address] [email or web address] Insurance Assigned Provider 07/04/23 Ranjan Spence MD [address] [place] [address] [email or web address] Primary Oncologist Medical Oncology 06/12/22 documented as of this encounter Additional Source Comments The information contained in this document represents components of the legal health record. It is not the complete legal health record.[facility]
--- OUTSIDE RECORDS SUMMARY | 2025-02-01 13:51 | XMS_ITS | Encounter Summary ---
Author Organization [facility] Address [address] [place] [address] Phone Care Team Providers Care Spectrograph Operator Name Role Phone Bobbi Correa ALTERATIONS WORKROOM CLERK Unavailable [phone] Maisha Riley DO Unavailable Marcella Butler TIN TIE MACHINE OPERATOR AUTOMATIC Unavailable Delfin Johns MD Unavailable Rbobin Watson DO Unavailable Carli Mason MD Unavailable Pavel Mora MD Unavailable Herb Mason MD Unavailable Ronnie Sifuentes MD Primary Care Provider [phone] Elizabeth Hicks MD Primary Care Provider [phone] Ronnei Sifuentes MD Unavailable Elizabeth Hicks MD Unavailable Ranjan Spence MD Unavailable Encounter Details Date Type Department Care Team (Late st Contact Info) Description 11/17/2019 Transcribe Orders [facility] Department [address] [place], [place] [phone] Wander Jarrett MD [address] [place] [address] Social History Tobacco Use Types Packs/Day Years [...] Description 06/12/2025 11:00 AM EDT Office Visit [facility] [address] [place] [address] 3rd Floor, [address] [place] [address] Keny Lama DO [address] [facility] [address] [place] [address] 06/29/2025 11:00 AM EDT Office Visit [facility] [address] [place] [address] Bryant Carlson DO 234 [place] [address] 02/01/2026 9:20 AM EST Office Visit [facility] 30 [place] [address] Ranjan Spence MD 30 [place] [address] documented as of this encounter Visit Diagnoses Not on filedocumented in this encounter Additional Health Concerns Assessment Noted Time PHQ-2 Depression Total Score: 1 09/02/19 18 11:31 AM EDT documented as of this encounter Care Teams Spectrograph Operator Relationship Specialty Start Date End Date Ronnie Sifuentes MD [address] [place] [address] [address] [place] [id number] [email or web address] PCP - General 01/23/17 04/08/21 Elizabeth Hicks MD [address] [place] [address] 7 [place] [address] [email or web address] PCP - General Family Medicine 04/09/21 Bobbi Correa NP 1 [place] [address] Historical LMR Provider 01/17/17 2 Maisha Riley DO [address] [place] [address] 7 [place] [address] Historical LMR Provider 01/17/17 04/06/21 Marcella Butler, ADELE [address] [place] [address], 2nd [place] [address] Historical LMR Provider 01/17/17 Delfin Johns MD [address] [address] Historical LMR Provider 01/17/17 04/06/21 Robbin Watson DO [address] [place] [address] Orthopedics & Sports Medicine, [facility] [place] [address] Historical LMR Provider 01/17/17 04/06/21 Carli Mason MD [address] [place] [address] 7 [place] [phone] [email or web address] Historical LMR Provider 01/17/17 04/06/21 Pavel Mora MD [address] [facility] [address] [place] [address] Historical LMR Provider 01/17/17 2 Herb Mason MD [address] [place] [address] Historical LMR Provider 01/17/17 Ronnie Sifuentes MD [address] [place] [address] [address] [place] [phone] [email or web address] Insurance Assigned Provider 06/27/17 07/06/21 Elizabeth Hicks MD [address] [place] [address] 7 [place] [address] [email or web address] Insurance Assigned Provider 07/04/23 Ranjan Spence MD [address] [place] [address] [email or web address] Primary Oncologist Medical Oncology 06/12/22 documented as of this encounter Additional Source Comments The information contained in this document represents components of the legal health record. It is not the complete legal health record.[facility]
--- OUTSIDE RECORDS SUMMARY | 2025-02-01 13:51 | XMS_ITS | Clinical Summary ---
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 7 Active acetaminophen (TYLENOL) 325 mg tablet Take 650 mg by mouth every 4 (four) hours as needed for pain (specific location in comments). Active bo2-jok-dvr-cod liver-vit A-D3 (COD LIVER OIL) 240-1,000 mg Cap 1 Active therapeutic multivitamin tablet Take 1 tablet by mouth daily. Active magnesium gluconate (MAGONATE) 500 mg (27 mg elemental) Tab Take 200 mg by mouth daily. Active methenamine (HIPREX) 1 gram tablet Take 1 g by mouth every morning. 4 Active bethanechol (URECHOLINE) 50 MG tablet 5 Active vitamin D3-vitamin K2, MK4, 1,000-100 unit-mcg Tab Take by mouth. Active oxyCODONE 5 MG immediate release tabletIndications :Right hip pain Take 1 tablet (5 mg total) by mouth every 8 (eight) hours as needed for pain (specific location in comments) (hip). Partial fill ok 20 tablet 5 Active Active Problems Patient Care Coordination No te Formatting of this note migh t be different from the original. Height 182.5cm no shoes 06/19/22 Problem Noted Date Diagnosed Date Neuropathic pain 03/07/2024 Assessment & Plan (03/07/2024 1:23 PM EST): Would like to see sports med -- to giselle I recommend physical therapy as it sounds c/w musculoskeletal nerve entrapment Orders: Ambulatory referral to External Physiatry Ambulatory referral to [facility] Physical Therapy Chronic kidney disease, stage 3a 03/07/2024 Assessment & Plan (12/15/2024 11:33 AM EDT): Offered reassurance, will repeat labs and add cystatin C Orders: CBC; Future Comprehensive metabolic panel; Future Hemoglobin A1c; Future Cystatin C; Future Assessment & Plan (03/07/2024 1:23 PM EST): Stable, GFR updated to 64 which is no longer 3a Chronic right shoulder pain 02/16/2023 Assessment & Plan (05/19/2023 9:34 AM EST): Present but stable Spinal stenosis of lumbar region 04/11/2021 Assessment & Plan (09/12/2024 11:33 AM EDT): This is present but not symptomatic at this time Tinea pedis of both feet 04/11/2021 Elevated ferritin 08/08/2020 Chest pain 08/01/2019 Assessment & Plan (01/26/2024 1:23 PM EDT): He periodically gets chest pain but had a stress test that was negative for reversible ischemia Assessment & Plan (06/30/2023 1:22 PM EDT): No evidence of ischemia on her nuclear stress test recently done Assessment & Plan (05/19/2023 9:34 AM EST): His chest pain sounded anginal I have ordered him an exercise nuclear stress test and we will review the results when I see him coming up next month Assessment & Plan (10/25/2020 9:10 AM EDT): Noncardiac he had a full work-up and it was negative he exercises on a regular basis and has no symptoms at all Assessment & Plan (10/19/2019 2:29 PM EDT): The patient had a stress test on 08/18/2019 and was found to be normal with no evidence of myocardial ischemia. He had an echocardiogram on 10/13/2019 showing a normal EF and no significant valvular abnormalities or wall motion abnormalities. Today, he states that his chest pain has completely resolved and he denies any recurring episodes or symptoms. He was reassured by going over his test results. I Informed him to let us know if his symptoms recur or this changes in the future. Optimize cardiac risk factors and encouraged good exercise regimen and dietary choices. Assessment & Plan (08/01/2019 9:35 AM EDT): As mentioned I am going to order him a stress test and an echocardiogram I will see him thereafter in follow-up Postnasal drip 04/06/2019 Hyperglycemia 01/04/2019 Assessment & Plan (09/12/2024 11:32 AM EDT): If this patient develops diabetes A1c should be less than 7 and his LDL goal at that point would be less than 70 mg/dL. Assessment & Plan (01/26/2024 1:23 PM EDT): So if his sugar measurements are high A1c should be looked at periodically the last 1 he had done was normal Assessment & Plan (06/30/2023 1:22 PM EDT): A1c was checked and is normal at 5.4 Assessment & Plan (10/27/2022 1:07 PM EDT): Next visit I have ordered him a hemoglobin A1c to check this Assessment & Plan (10/22/2021 9:38 AM EDT): We will need to monitor this over time to make sure he does not develop diabetes Assessment & Plan (08/01/2019 9:36 AM EDT): We need to keep a close eye on this as the patient has a positive family history of diabetes Migraine with aura and witho ut status migrainosus, not intractable 11/02/2018 Overview (11/02/2018): Since 1975. Associated w visual aura- geometric shapes. Assessment & Plan (05/05/2022 12:39 PM EST): Will obtain MRI due to changing quality and frequency of migraine MORRIS's. Recommend start riboflavin 400mg daily and consider adding magnesium supplementation (though beware of possible soft/loose stools). Start sumatriptan as early in migraine cycle as possible to break the migraine and prevent it from worsening. Warned of s/e. Input referral to Dr Gallardo (neuro) per pt request. Assessment & Plan (04/29/2022 1:15 PM EST): Not active at this time Assessment & Plan (11/02/2018 8:48 AM EDT): I recommend he reduce screen time- this puzzle game he's playing may be particularly visually & mentally fatiguing and therefore triggering more migraines. Recommend adequate rest & fluids etc. If migraines continue to be as frequent or worsen he should FU w PCP. Offered rx for abortive tx, but he prefers OTC tx. Discussed risk of rebound headaches w tylenol. Suggested trying a small amount of caffeine w NSAID or tylenol. Chronic pain of left ankle 09/01/2017 Enlarged prostate on rectal examination 12/06/20 17 Hyperparathyroidism 03/04/2017 Mixed hyperlipidemia 03/04/2017 Overview (09/12/2024): 1. Lipids: Assessment & Plan (12/15/2024 11:33 AM EDT): Check fasting lipids Orders: Lipid panel; Future Assessment & Plan (09/12/2024 11:32 AM EDT): Not ideal but this patient is adamant about not taking statins which I do understand he will continue with diet and exercise Assessment & Plan (01/26/2024 1:23 PM EDT): As mentioned his LDL is high and by the guidelines should probably come down 90 points he does not want medical therapy for it so we just went through the natural ways to do this we will recheck it now and in 6 months I will see him in 7 to 8 months Assessment & Plan (06/30/2023 1:21 PM EDT): This patient's triglycerides are high A1c is totally normal and LDL is high this is all from the fat content of the foods that he is eating. I cautioned him on this and basically explained the things that he should avoid. We will retest his lipid profile in 6 months Assessment & Plan (05/19/2023 9:33 AM EST): As mentioned I have ordered him a lipid panel and an A1c which I will review next visit Assessment & Plan (10/27/2022 1:07 PM EDT): As mentioned he is not a patient with coronary disease so LDL does not have to be less than 70 but ideally should be less than 100 we did talk again about ways to reduce his total cholesterol and raise his HDL. Assessment & Plan (04/29/2022 1:15 PM EST): As mentioned we are going to proceed without medications at this time just aggressive lifestyle modification I will reevaluate after his next lipid panel in 6 months Assessment & Plan (10/22/2021 9:37 AM EDT): This is all driven by his diet I asked him to make some adjustments we will retest this in 5 months I will see him in 6 Assessment & Plan (10/25/2020 9:09 AM EDT): Well-controlled at this time his risk is actually pretty low so LDL needs to be less than 100 his cholesterol recently checked was high so he is working with diet for now Assessment & Plan (10/19/2019 2:20 PM EDT): LDL goal <100. Most recent lipid panel is from March and the patient normally has labs drawn through his PCP. If next lipid panel is still not at goal, can consider initiating a statin. Assessment & Plan (08/01/2019 9:36 AM EDT): LDL currently for his risk should be less than 100 mg/dL but if he has an abnormal stress test this will be changed to less than 70 mg/dL I will address this issue after I see him for a follow-up visit Neurogenic bladder 03/04/2017 Chronic midline low back pain without sciatica 1 05/05/2016 Left shoulder pain 03/04/2017 Multiple pulmonary nodules 03/04/2017 Seasonal allergic rhinitis 03/04/2017 Monoclonal gammopathy 03/03/2017 Assessment & Plan (10/25/2020 9:10 AM EDT): Stable at the present History of hepatitis C Overview (04/11/2021): INCORRECT WITH NEGATIVE LIVER BIOPSY IN 2008, BUT ANTIBODY POSTIVE GERD (gastroesophageal reflux disease) Assessment & Plan (06/30/2023 1:22 PM EDT): Asymptomatic at the present time Assessment & Plan (10/27/2022 1:07 PM EDT): Present but stable Assessment & Plan (04/29/2022 1:15 PM EST): Asymptomatic at this time. Assessment & Plan (10/22/2021 9:38 AM EDT): Stable at the present time. Resolved Problems Problem Noted Date Diagnosed Date Resolved Date Pain of right hip joint 09/01/20170 10/2019 Allergy to dust 03/10/2017 05/05/2022 Overview (08/18/2017): DUST;PHS Allergy Remediation Hepatitis C 05/05/2022 Overview (04/11/2021): INCORRECT WITH NEGATIVE LIVER BIOPSY IN 2008, BUT ANTIBODY POSTIVE Encounters Date Type Department Care Team Description 01/30/2025 8:20 AM EST Office Visit [facility] at [address] [address] Ranjan Spence MD Monoclonal gammopathy (Primary Dx) 01/24/2025 9:43 AM EDT - 01/24/2025 11:59 PM EDT Hospital Encounter [facility] [address] [place] [address] Ranjan Spence MD Discharge Disposition: Home or Self Care 01/11/[address] [place] [address] Elizabeth Hicks MD Labs 01/11/2025 Orders Only [address] [address] Elizabeth Hicks MD Hepatitis C antibody positive (Primary Dx) 01/10/2025 8:40 AM EDT - 01/10/2025 11:59 PM EDT Hospital Encounter [facility] [address] [place] [address] Elizabeth Hicks MD Discharge Disposition: Home or Self Care 01/04/2025 7:52 AM EDT - 01/04/2025 11:59 PM EDT Hospital Encounter [address] [address] Elizabeth Hicks MD Discharge Disposition: Home or Self Care 12/28/2024 11:30 AM EDT Office Visit [address] [address] Elizabeth Hicks MD Medicare annual wellness visit, subsequent (Primary Dx); Transaminitis; Need for prophylactic vaccination and inoculation against influenza; Need for hepatitis B screening test 12/27/2024 11:00 AM EDT Office Visit [facility] [address] [place] [address] Bipin Sher MD Primary osteoarthritis of left hip (Primary Dx); Primary osteoarthritis of right hip 12/16/2024 9:06 AM EDT - 12/16/2024 11:59 PM EDT Hospital Encounter [address] [address] Elizabeth Hicks MD Discharge Disposition: Home or Self Care 12/16/2024 8:39 AM EDT - 12/16/2024 9:05 AM EDT Hospital Encounter [facility], X-Ray - [address] [address] Elizabeth Hicks MD Discharge Disposition: Home or Self Care 12/15/2024 11:00 AM EDT Office Visit [facility] [address] [place] [address] Elizabeth Hicks MD Left hip pain (Primary Dx); Chronic kidney disease, stage 3a; Mixed hyperlipidemia from Last 3 Months Immunizations Immunization Administration Dates Next Due COVID-19 (Pre-01/19) Anton Vaccine, [id number], PF 05/31/2020 Hepatitis A, Unspecified 11/20/2011,11/17/2005 Hepatitis B Adult 11/08/2012,11/20/2011,11/18/19 06 INFLUENZA, SPLIT VIRUS, TRIV ALENT W/ PRESERVATIVE IM 12/30/2011 IPV 11/17/2005 Influenza High-Dose Quadriva lent Preservative Free IM 01/15/2022 Influenza High-Dose Trivalen t Preservative Free IM 12/28/2024,01/04/2019,01/27/2018,12/18 Influenza Quadrivalent Adjuv anted Preservative Free IM 01/04/2021 Influenza Trivalent Adjuvant ed Preservative free IM 12/22/2023 Influenza trivalent preserva tive free intradermal 01/04/2013 Influenza, Unspecified Formulation 02/09/2020 Meningococcal MPSV4 12/30/2011 Pneumococcal conjugate PCV13 07/14/2016 Pneumococcal conjugate PCV20 10/14/2022 Pneumococcal polysaccharide PPSV23 12/16/2019 RSV Vaccine (monovalent, adjuvanted) 03/04/2023 Td (adult),2 Lf Tetanus Toxo id, PF, Adsorbed 11/17/2005 Tdap 10/14/2022,11/20/2011 Typhoid,oral 12/30/2011 Yellow Fever 12/30/2011 Zoster recombinant 12/26/2022,10/07/2022 Family History Medical History Relation Comments Diabetes type II Brother No Known Problems Father No Known Problems Maternal Aunt No Known Problems Maternal Grandfather No Known Problems Maternal Grandmother No Known Problems Maternal Uncle Hypertension Mother No Known Problems Paternal Aunt No Known Problems Paternal Grandfather No Known Problems Paternal Grandmother No Known Problems Paternal Uncle No Known Problems Sister Diabetes Unspecified Infl. arthritis Unspecified Cancer Neg Hx Clotting disorder Neg Hx Collagen disease Neg Hx Depression Neg Hx Dislocations Neg Hx Gout Neg Hx Osteoporosis Neg Hx Scoliosis Neg Hx Relation Status Comments Brother Father Maternal Aunt Maternal Grandfather Maternal Grandmother Maternal Uncle Mother Alive Paternal Aunt Paternal Grandfather Paternal Grandmother Paternal Uncle Sister Unspecified Social History Tobacco Use Types Packs/Day Years Used Date Smoking Tobacco: Former Cigarettes 1 30 Smokeless Tobacco: Never Tobacco Cessation:Counseling Given: Not Answered Alcohol Use Standard Drinks/Week Comments No 0 [...] Orientation Straight 08/18/2019 10 :42 AM EDT Last Filed Vital Signs Vital Sign Reading [...] Mass Index 27.33 01/30/2025 8:18 AM EST Plan of Treatment Upcoming Encounters Date Type Department Care Team (Late st Contact Info) Description 06/12/2025 11:00 AM EDT Office Visit [facility] [address] [place] [address] 3rd Floor, [address] [place] [address] Keny Lama DO [address] [facility] [address] [place] [address] 06/29/2025 11:00 AM EDT Office Visit [facility] [address] [place] [address] Bryant Carlson, DO [address] [place] [address] 02/01/2026 9:20 AM EST Office Visit [facility] [address] [place] [address] Ranjan Spence MD [address] [place] [address] [email or web address] Maintenance Due Date Last Done Comments SMOKING Hx and SMOKELESS TOBACCO SCREENING 06/17/1964 COLONOSCOPY 06/17/1996 FOBT 06/17/1996 SIGMOIDOSCOPY 06/17/1996 VIRTUAL COLONOSCOPY 06/17/1996 FIT TEST 08/03/2021 08/03/2020 COVID-19 VACCINE ( season) 2025 01/17/2025, 12/22/2023, 03/04/2023, Additional history exists LIPID PANEL 12/16/2025 12/16/2024, 08/28, 01/26/2024, Additional history exists DEPRESSION SCREENING 12/21/2025 12/21/2024 COLOGUARD 02/23/2026 02/23/2023 COLORECTAL CANCER SCREENING 02/23/2026 Adult Td,Tdap Booster 10/14/2032 10/14/2022 , 11/20/2011, 11/17/2005 HEPATITIS A VACCINES Completed 11/20/2011, 11/18/19 06 MENINGOCOCCAL VACCINES (ACWY) Aged Out 12/30/2011 No longer eligible based on patient's age to complete this topic ABDOMINAL AORTIC ANEURYSM (AAA) SCREENING Completed 06/05/2021 PNEUMOCOCCAL VACCINES (50+ years) Completed 10/14/2022, 12/16/2019, 07/14/2016 ZOSTER VACCINES Completed 12/26/2022, 10/07/2022 RSV VACCINE Completed 03/04/2023 INFLUENZA VACCINE Completed 12/28/2024, , 01/15/2022, Additional history exists HIB VACCINES Aged Out No longer eligi ble based on patient's age to complete this topic MENINGOCOCCAL VACCINES (B) Aged Out N o longer eligible based on patient's age to complete this topic Medical Devices Not on file Procedures Procedure Name Priority Date/Time Associated Diagnosis Comments CBC AND DIFFERENTIAL Routine 01/24/2025 10:18 AM EDT Monoclonal gammopathy COMPREHENSIVE METABOLIC PANEL (CMP) Routine 01/24/2025 10:18 AM EDT Monoclonal gammopathy IMMUNOGLOBULINS IGG, IGA, IGM Routine 01/24/2025 10:18 AM EDT Monoclonal gammopathy BETA-2 MICROGLOBULIN, BLOOD Routine 01/24/2025 10:18 AM EDT Monoclonal gammopathy MONOCLONAL PROTEIN STUDY, SERUM Routine 01/24/2025 10:18 AM EDT Monoclonal gammopathy FREE LIGHT CHAINS, SERUM Routine 01/24/2025 10:18 AM EDT Monoclonal gammopathy LAB ADD ON Routine 01/11/2025 10:36 AM EDT Hepatitis C antibody positive TISSUE TRANSGLUTAMINASE IGA Routine 01/10/2025 9:37 AM EDT COMPREHENSIVE METABOLIC PANEL (CMP) Routine 01/10/2025 9:37 AM EDT Transaminitis CERULOPLASMIN Routine 01/10/2025 9:37 AM EDT Transaminitis HEPATITIS B SURFACE ANTIBODY Routine 01/10/2025 9:37 AM EDT Transaminitis Need for hepatitis B screening test FERRITIN Routine 01/10/2025 9:37 AM EDT Transaminitis Celiac antibodies Routine 01/10/2025 9:3 7 AM EDT Transaminitis HEPATITIS B SURFACE ANTIGEN Routine 01/10/2025 9:37 AM EDT Transaminitis Need for hepatitis B screening test HEPATITIS B CORE ANTIBODY, TOTAL Routine 01/10/2025 9:37 AM EDT Transaminitis Need for hepatitis B screening test HEPATITIS A ANTIBODY, IGM Routine 01/10/2025 9:37 AM EDT Transaminitis HEPATITIS C ANTIBODY, QUALITATIVE Routine 01/10/2025 9:37 AM EDT Transaminitis US ABDOMEN COMPLETE (ADULT) Routine 01/04/2025 9:05 AM EDT Transaminitis XR HIP 2 VW LEFT PLUS PELVIS Routine 12/16/2024 9:14 AM EDT Left hip pain LIPID PANEL Routine 12/16/2024 9:10 AM EDT Mixed hyperlipidemia CBC Routine 12/16/2024 9:10 AM EDT Chronic kidney disease, stage 3a COMPREHENSIVE METABOLIC PANEL (CMP) Routine 12/16/2024 9:10 AM EDT Chronic kidney disease, stage 3a HEMOGLOBIN A1C Routine 12/16/2024 9:10 AM EDT Chronic kidney disease, stage 3a CYSTATIN C WITH ESTIMATED GLOMERULAR FILTRATION RATE (EGFR) Routine 12/16/2024 9:10 AM EDT Chronic kidney disease, stage 3a US ABDOMINAL AORTIC SCREENING Routine 06/05/2021 10:52 AM EST Encounter for abdominal aortic aneurysm screening HC BLOOD OCCULT FECAL HGB DETER IA QUAL FECES 1-3 Routine 08/03/2020 1:00 AM EDT Special screening for malignant neoplasm of colon from Last 3 Months or Most Recently Relevant to Health Maintenance Results * (ABNORMAL) Monoclonal protein study, Serum (Non-MGB) (01/24/2025 10:18 AM EDT) M-protein GK Test component not applicable or not reported. g/dL [facility] [place] M-protein GL 0.373(H) g/dL [facility] [place] M-protein AK Test component not applicable or not reported. g/dL [facility] [place] M-protein AL 0.067(H) g/dL [facility] [place] M-protein MK Test component not applicable or not reported. g/dL [facility] M-protein ML Test component not applicable or not reported. g/dL [facility] Glycosylation Test component not applicable or not reported. [facility] Flag, M-protein Isotype Positive(A) Negative [facility] QMPTS Interpretation SEE NOTE [facility] Comment: (NOTE) IgG lambda 0.373 g/dL IgA lambda 0.067 g/dL ADDITIONAL INFORMATION The submitted sample was assayed by five separate immunopurifications for IgG, IgA, IgM, kappa and lambda. The result reflects the findings of either no monoclonal protein detected or those monoclonal immunoglobulins that were detected. This test was developed and its performance characteristics determined by [facility] in a manner consistent with CLIA requirements. This test has not been cleared or approved by the U.S. Food and Drug Administration. IgA 210 61 - 356 mg/dL [facility] IgM 75 37 - 286 mg/dL [facility] IgG 980 767 - 1,590 mg/dL [facility] Therapeutic Antibody Administered? No [facility] Comment:Corrected on 01/30 A T 1612: previously reported as NO Blood 01/24/2025 10:1 8 AM EDT 01/24/2025 10:26 AM EDT us Ranjan Spence MD LAB BLOOD BKR ORDERABLES Edite d Result - Final [facility] [address] [place] [address] * Immunoglobulins IgG, IgA, IgM (01/24/2025 10:18 AM EDT) IMMUNOGLOBULIN G 1,027 700 - 1,600 mg/dL [facility] IgA 211 70 - 400 mg/dL [facility] IMMUNOGLOBULIN M 71 40 - 230 mg/dL [facility] Blood 01/24/2025 10:1 8 AM EDT 01/24/2025 10:27 AM EDT us Ranjan Spence MD LAB BLOOD BKR ORDERABLES Final Result [address] [address] * (ABNORMAL) Comprehensive metabolic panel (01/24/2025 10:18 AM EDT) Only the most recent of3 resultswithin the time period is included. SODIUM 139 133 - 146 mmol/L [facility] POTASSIUM 4.1 3.3 - 5.1 mmol/L [facility] CHLORIDE 103 96 - 108 mmol/L [facility] CO2 24 21 - 35 mmol/L [facility] BUN 18 6 - 19 mg/dL [facility] CREATININE 1.20 0.5 - 1.5 mg/dL [facility] GLUCOSE 107(H) 70 - 99 mg/dL [facility] ALBUMIN 4.5 3.9 - 4.8 g/dL [facility] TOTAL PROTEIN 7.6 6.5 - 8.0 g/dL [facility] CALCIUM 9.6 8.4 - 10.3 mg/dL [facility] ALKALINE PHOSPHATASE 73 39 - 117 U/L [facility] TOTAL BILIRUBIN 0.4 0.0 - 1.2 mg/dL [facility] AST 45(H) 0 - 37 U/L [facility] ALT 30 0 - 40 U/L [facility] GLOBULIN 3.1 1 - 4.8 g/dL [facility] EGFR 64 >59 mL/min/1.7 3m2 [facility] Comment:Estimated glomerular filtration rate calculated using the CKD-EPI refit equation. ANION GAP 16 10 - 20 mmol/L [facility] Blood 01/24/2025 10:1 8 AM EDT 01/24/2025 10:27 AM EDT us Ranjan Spence MD LAB BLOOD BKR ORDERABLES Final Result [address] [address] * (ABNORMAL) Free light chains, serum (01/24/2025 10:18 AM EDT) [place] Free Light Chain 1.43 0.3300 - 1.94 mg/dL [facility] Lambda Free Light Chain 3.83(H) 0.5700 - 2.63 mg/dL [facility] [place]/Lambda FLC Ratio 0.3734 0.2600 - 1.65 [facility] Blood 01/24/2025 10:1 8 AM EDT 01/24/2025 10:26 AM EDT us Ranjan Spence MD LAB BLOOD BKR ORDERABLES Final Result [facility] [address] [place] [address] * (ABNORMAL) CBC and differential (01/24/2025 10:18 AM EDT) WBC 5.79 4.00 - 11.00 K/uL [facility] RBC 5.89 4.50 - 5.90 M/uL [facility] HGB 14.0 13.5 - 17.5 g/dL [facility] HCT 46.1 41.0 - 53.0 % [facility] PLT 239 150 - 450 K/uL [facility] MCV 78.3(L) 80.0 - 100.0 fL [facility] MCH 23.8(L) 27.0 - 31.0 pg [facility] MCHC 30.4(L) 32.0 - 36.0 g/dL [facility] RDW 13.2 11.5 - 14.5 % [facility] MPV 11.7 8.4 - 12.0 fL [facility] NRBC 0.00 0.00 /100 WBCs [facility] ABSOLUTE NRBC 0.00 0.00 K/uL [facility] DIFF METHOD Auto [facility] NEUTS 46.8(L) 48.0 - 76.0 % [facility] LYMPHS 40.8 18.0 - 41.0 % [facility] MONOS 10.7 4.0 - 11.0 % [facility] EOS 0.9 0.0 - 5.0 % [facility] BASOS 0.3 0.0 - 1.5 % [facility] Granulocytes, immature (%) 0.5 0.0 - 0.9 % [facility] ABSOLUTE NEUTS 2.71 1.92 - 7.60 K/uL [facility] ABSOLUTE LYMPHS 2.36 0.72 - 4.10 K/uL [facility] ABSOLUTE MONOS 0.62 0.16 - 1.10 K/uL [facility] ABSOLUTE EOS 0.05 0.00 - 0.50 K/uL [facility] ABSOLUTE BASOS 0.02 0.00 - 0.15 K/uL [facility] Granulocytes, immature 0.03 0.00 - 0.09 K/uL [facility] Blood 01/24/2025 10:1 8 AM EDT 01/24/2025 10:27 AM EDT us Ranjan Spence MD LAB BLOOD BKR ORDERABLES Final Result [facility] [address] [place] [address] * Beta-2 microglobulin, blood (01/24/2025 10:18 AM EDT) BETA 2 MICROGLOBUL 2.12 0.80 - 2.34 mcg/mL [facility] Blood 01/24/2025 10:1 8 AM EDT 01/24/2025 10:27 AM EDT us Ranjan Spence MD LAB BLOOD BKR ORDERABLES Final Result [facility] [address] [place] [address] * Lab Add On: hep C viral load (01/11/2025 10:36 AM EDT) TEST REQUESTED HEP C VIRAL LOAD [facility] Comments (Chemistry) Add on order being processed. Floor or provider will be notified if testing cannot be performed [facility] 01/11/2025 10:3 6 AM EDT 01/11/2025 1:06 PM EDT Elizabeth Hicks MD LAB BLOOD ORDERABLES Constance l Result Performing Organization Address [facility]/ZIP Co de Phone Number [address] [address] * Celiac Screening Test Panel (01/10/2025 9:37 AM EDT) IgA 231 61 - 356 mg/dL [facility] Celiac Disease Panel/Interpret ation SEE NOTE [facility] Comment: (NOTE) See Comment: Negative serology. Celiac disease unlikely. However, approximately 10% of patients with celiac disease are seronegative. Also, patients who are already adhering to a gluten-free diet may be seronegative. If celiac disease is highly clinically suspected, consider HLA-DQ typing. Blood 01/10/2025 9:37 AM EDT 01/10/2025 9:46 AM EDT Elizabeth Hicks MD LAB BLOOD ORDERABLES Constance l Result Performing Organization Address [facility] Co de Phone Number [facility] [address] [place] [address] * Hepatitis A antibody, IgM (01/10/2025 9:37 AM EDT) Hepatitis A Antibody, IgM NON-REACTI VE NON-REACTI VE [facility] Blood 01/10/2025 9:37 AM EDT 01/10/2025 9:46 AM EDT Elizabeth Hicks MD LAB BLOOD BKR ORDERABLES Final Result Performing Organization Address [facility]/ZIP Co de Phone Number [address] [address] * (ABNORMAL) Hepatitis C antibody, qualitative (01/10/2025 9:37 AM EDT) HCV REACTIVE(A) NON-REACTI VE [facility] Blood 01/10/2025 9:37 AM EDT 01/10/2025 9:46 AM EDT us Elizabeth Hicks MD LAB BLOOD BKR ORDERABLES Final Result [facility] [address] [place] [address] * Tissue transglutaminase IgA (01/10/2025 9:37 AM EDT) TTG IGA ANTIBODY <1.2 <4.0 (Negative) U/mL [facility] 01/10/2025 9:37 AM EDT 01/10/2025 9:46 AM EDT us Elizabeth Hicks MD LAB BLOOD BKR ORDERABLES Final Result Performing Organization Address City/[facility]/ZIP Co de Phone Number [facility] [address] [place] [address] * Ceruloplasmin (01/10/2025 9:37 AM EDT) CERULOPLASMIN 37 20 - 60 mg/dL [facility] Blood 01/10/2025 9:37 AM EDT 01/10/2025 9:46 AM EDT us Elizabeth Hicks MD LAB BLOOD ORDERABLES Constance l Result [facility] [address] [place] [address] * Hepatitis B core antibody, total (01/10/2025 9:37 AM EDT) HEP B CORE AB, TOT NON-REACTI VE NON-REACTI VE [facility] Blood 01/10/2025 9:37 AM EDT 01/10/2025 9:46 AM EDT us Elizabeth Hicks MD LAB BLOOD BKR ORDERABLES Final Result Performing Organization Address [facility] de Phone Number [address] [address] * Hepatitis B surface antibody (01/10/2025 9:37 AM EDT) HBV SURFACE ANTIBODY Reactive [facility] Comment: Unvaccinated: Non Reactive Vaccinated: Reactive Blood 01/10/2025 9:37 AM EDT 01/10/2025 9:46 AM EDT Result Hayde Hicks MD LAB BLOOD BKR ORDERABLES Final Result Performing Organization Address [facility] Number [address] [address] * Hepatitis B surface antigen (01/10/2025 9:37 AM EDT) HBV SURFACE ANTIGEN NON-REACTI VE NON-REACTI VE [facility] Blood 01/10/2025 9:37 AM EDT 01/10/2025 9:46 AM EDT Result Hayde Hicks MD LAB BLOOD BKR ORDERABLES Final Result Performing Organization Address [facility] de Phone Number [address] [address] * (ABNORMAL) Ferritin (01/10/2025 9:37 AM EDT) FERRITIN 669(H) 30 - 400 ug/L [facility] Blood 01/10/2025 9:37 AM EDT 01/10/2025 9:46 AM EDT us Elizabeth Hicks MD LAB BLOOD BKR ORDERABLES Final Result Performing Organization Address [facility]/ZIP Co de Phone Number [address] [address] * US ABDOMEN COMPLETE (ADULT) (01/04/2025 9:05 AM EDT) Anatomical Region Laterality Modality Abdomen Ultrasound 01/04/2025 10:3 0 AM EDT Impressions 01/04/2025 10:34 AM EDT 1. Fatty liver. 2. Right renal cysts. Narrative 01/04/2025 10:34 AM EDT US ABDOMEN COMPLETE (ADULT) Referring clinician's provided indication for this examination in [facility]: abnormal hepatic function tests; hx of liver bx [...] No splenomegaly. Kidneys: No stones or hydronephrosis. 2 right renal cysts the largest in the upper pole measuring 2.7 x 3.1 x 3.1 cm with thin septation. Aorta: Normal, where visualized sonographically. IVC: Normal intrahepatic segment. Procedure Note Stefanie Mason MD - 01/04/2025 US ABDOMEN COMPLETE (ADULT) Referring clinician's provided indication for this examination in [facility]:abnormal hepatic function tests; hx of liver bx 10y ago for elev ferritin(normal), now with new transaminitis after long hx of normal LFT's TECHNIQUE: Abdominal Ultrasound Complete. COMPARISON: US ABDOMINAL AORTIC SCREENING FINDINGS: Liver: Diffusely increased echogenicity consistent with fatty liver. Nofocal lesion. Main Portal Vein: Patent with normal direction of flow. Gallbladder: No gallstones or gallbladder wall thickening. Henderson's Sign: Negative. Biliary: No intrahepatic or extrahepatic biliary ductal dilatation. The common bile duct measures 2 mm. Pancreas: Not well visualized due to overlying bowel gas. Spleen: No splenomegaly. Kidneys: No stones or hydronephrosis. 2 right renal cysts the largest inthe upper pole measuring 2.7 x 3.1 x 3.1 cm with thin septation. Aorta: Normal, where visualized sonographically. IVC: Normal intrahepatic segment. IMPRESSION: 1. Fatty liver. 2. Right renal cysts. us Elizabeth Hicks MD IMG US ABDOMEN Final Res ult * XR HIP 2 VW LEFT PLUS PELVIS (12/16/2024 9:14 AM EDT) Anatomical Region Laterality Modality Hip Left Computed Radiogr aphy 12/16/2024 2:52 PM EDT Impressions 12/16/2024 2:56 PM EDT No acute fracture or dislocation. Degenerative changes as described above Narrative 12/16/2024 2:56 PM EDT XR HIP 2 VW LEFT PLUS PELVIS Referring clinician's provided indication for this examination in Epic: Pain; severe left hip pain COMPARISON: None FINDINGS: Pelvis: No acute displaced fracture or dislocation. Mild degenerative change of the SI joints and pubic symphysis. There are mild degenerative changes involving the right hip. Calcified phleboliths the pelvis. Left hip: No acute displaced fracture or dislocation. There is mild joint space narrowing as well as marginal osteophyte formation off the superior lateral acetabulum with an osseous bump at the femoral head/neck junction which can be seen in the setting of femoral acetabular impingement Procedure Note Nav Retana MD - 12/16/2024 XR HIP 2 VW LEFT PLUS PELVIS Referring clinician's provided indication for this examination in Epic:Pain; severe left hip pain COMPARISON: None FINDINGS: Pelvis: No acute displaced fracture or dislocation. Mild degenerativechange of the SI joints and pubic symphysis. There are mild degenerativechanges involving the right hip. Calcified phleboliths the pelvis. Left hip: No acute displaced fracture or dislocation. There is mild jointspace narrowing as well as marginal osteophyte formation off the superiorlateral acetabulum with an osseous bump at the femoral head/neck junctionwhich can be seen in the setting of femoral acetabular impingement IMPRESSION: No acute fracture or dislocation. Degenerative changes as described above Elizabeth Hicks MD IMG XR PELVIS Final Res ult * Cystatin C (12/16/2024 9:10 AM EDT) Cystatin C 1.00 0.67 - 1.21 mg/L [facility] DPT OF LAB MED AND PAT+ eGFR (Cystatin C) 74 >60 mL/min/BSA [facility] DPT OF LAB MED AND PAT+ Comment: (NOTE) Estimated GFR calculated using the CKD-EPI Cystatin C (2012) equation. ADDITIONAL INFORMATION Cystatin C-based eGFR may differ substantially from creatinine- based eGFR in patients with abnormal muscle mass or acutely changing renal function. Please interpret together with relevant clinical features. On 08/23/2020 the cystatin C assay method changed. Cystatin C eGFR results > 50 ml/min/1.73m2 are approximately 10% lower with the new assay. Blood 12/16/2024 9:10 AM EDT 12/16/2024 9:15 AM EDT us Elizabeth Hicks MD LAB BLOOD BKR ORDERABLES Final Result [facility] DPT OF LAB MED AND PAT+ [address] [place] [address] * (ABNORMAL) CBC (12/16/2024 9:10 AM EDT) WBC 6.26 4.00 - 11.00 K/uL [facility] RBC 5.91(H) 4.50 - 5.90 M/uL [facility] HGB 14.3 13.5 - 17.5 g/dL [facility] HCT 46.0 41.0 - 53.0 % [facility] PLT 238 150 - 450 K/uL [facility] MCV 77.8(L) 80.0 - 100.0 fL [facility] MCH 24.2(L) 27.0 - 31.0 pg [facility] MCHC 31.1(L) 32.0 - 36.0 g/dL [facility] RDW 13.3 11.5 - 14.5 % [facility] MPV 10.6 8.4 - 12.0 fL [facility] NRBC 0.00 0.00 /100 WBCs [facility] ABSOLUTE NRBC 0.00 0.00 K/uL [facility] Blood 12/16/2024 9:10 AM EDT 12/16/2024 9:15 AM EDT Elizabeth Hicks MD LAB BLOOD BKR ORDERABLES Final Result Performing Organization Address [facility]/ZIP Co de Phone Number [address] [address] * Hemoglobin A1c (12/16/2024 9:10 AM EDT) HEMOGLOBIN A1C 5.5 4.3 - 5.8 % [facility] Blood 12/16/2024 9:10 AM EDT 12/16/2024 9:15 AM EDT Elizabeth Hicks MD LAB BLOOD BKR ORDERABLES Final Result [address] [address] * (ABNORMAL) Lipid panel (12/16/2024 9:10 AM EDT) HDL 51 mg/dL [facility] Comment: Interpretation <40 mg/dL: Low HDL cholesterol (major risk factor for CHD) Greater than or equal to 60 mg/dL: High HDL cholesterol ( negative risk factor for CHD) HDL - cholesterol is affected by a number of factors, e.g. smoking, excerise, hormones, sex and age. CHOLESTEROL 264(H) 0 - 240 mg/dL [facility] TRIGLYCERIDES 282(H) 30 - 160 mg/dL [facility] LDL 157(H) 50 - 129 mg/dL [facility] Comment: LDL levels in terms of risk for coronary heart disease: <100 mg/dL: Optimal 100-129 mg/dL: Near or above optimal 130-159 mg/dL: Borderline high 160-189 mg/dL: High >190 mg/dL: Very High CARDIAC RISK RATIO 5.2(H) 3.4 - 5.0 [facility] Blood 12/16/2024 9:10 AM EDT 12/16/2024 9:14 AM EDT us Elizabeth Hicks MD LAB BLOOD BKR ORDERABLES Final Result Performing Organization Address City/State/[facility] Co de Phone Number [address] [address] * US Abdominal Aortic Screening (06/05/2021 10:52 AM EST) Anatomical Region Laterality Modality Abdomen Ultrasound 06/05/2021 10:5 4 AM EST Impressions 06/05/2021 10:55 AM EST No AAA. Narrative 06/05/2021 10:55 AM EST COMPARISON: None. ABDOMINAL AORTA ULTRASOUND FINDINGS: No evidence of an abdominal aortic aneurysm. Aorta measures up to 2.3 cm. The proximal common iliac arteries are nonaneurysmal. Procedure Note Ludwig Lynch MD - 06/05/2021 COMPARISON: None. ABDOMINAL AORTA ULTRASOUND FINDINGS: No evidence of an abdominal aortic aneurysm. Aorta measures up to 2.3 cm.The proximal common iliac arteries are nonaneurysmal. IMPRESSION: No AAA. us Elizabeth Hicks MD IMG US ABDOMEN Final Res ult * Fecal immunochemical test x1 (FIT) (08/03/2020 1:00 AM EDT) Immuno Fecal Occult Negative Negative [facility] Stool (Stool) 08/03/2020 1:0 0 AM EDT 08/03/2020 12:34 PM EDT Ronnie Sifuentes MD LAB BODY FLUIDS AND STOOL ORDERABLES Final Result [facility] [address] [place] [address] from Last 3 Months or Most Recently Relevant to Health Maintenance Insurance MEDICARE PART A & B [employer] [place] [employer] [facility] PART [facility] B [employer] [place] [employer] SUPPLEMENT [facility] MEDICARE PART A & B [employer] MEDEX SUPPLEMENT MEDICARE PART A & B [employer] MED[employer] SUPPLEMENT MEDICARE PART A & B [employer] MEDEX SUPPLEMENT [facility] MEDICARE PART A & B [employer] MEDEX SUPPLEMENT MEDICARE PART A & B [employer] MEDEX SUPPLEMENT Member Subscriber Plan / Payer ( fective 2016-Present) Name:AdelabrittanyZuhair carcamo Andres Relation to Subscriber:Self Name:Zhuair Hodge Payer ID:[id number] (NAIC) Type:Indemnity Address: [address] MEDICARE PART A & B [employer] [place] [employer] SUPPLEMENT [facility] MEDICARE PART A & B [employer] SUPPLE[facility] [employer] MEDICARE PART A & B Care Teams Filtering Machine Tender Helper Relationship Specialty Start Date End Date Elizabeth Hicks MD [address] [place] [address] [address] [place] [address] PCP - General Family Medicine 04/09/21 Marcella Butler CNP [address] [place] [address] Historical LMR Provider 01/17/17 Elizabeth Hicks MD [address] [place] [address] [address] [place] [address] Insurance Assigned Provider 07/04/23 Ranjan Spence MD [address] [place] [address] Primary Oncologist Medical Oncology 06/12/22 Additional Source Comments The information contained in this document represents components of the legal health record. It is not the complete legal health record.[facility]
--- OUTSIDE RECORDS SUMMARY | 2025-02-01 13:52 | XMS_ITS | Encounter Summary ---
Author Organization [facility] Address [address] [facility] [address] [place] [address] Phone Care Team Providers Care Tree Doctor Name Role Phone Bobbi Correa NP Unavailable Maisha Riley DO Unavailable Marcella Butler SOFTWARE TEST MANAGER Unavailable Mike Glover MD Unavailable Delfin Johns MD Unavailable Robbin Watson DO Unavailable Mu Corcoran MD Unavailable Carli Mason MD Unavailable Pavel Mora MD Unavailable Ronnie Sifuentes MD Unavailable Herb Mason MD Unavailable Ronnie Sifuentes MD Primary Care Provider [phone] Ronnie Sifuentes MD Unavailable Elizabeth Hicks MD Primary Care Provider [phone] Ronnie Sifuentes MD Unavailable Elizabeth Hicks MD Unavailable Ranjan Spence MD Unavailable Encounter Details Date Type Department Care Team (Late st Contact Info) Description 01/05/2018 Transcribe Orders [facility] [address] [place] [address] Marco Arriola MD [address] [facility] [address] [place] [address] Enlarged prostate (Primary Dx) Social History Tobacco Use Types [...] Description 06/12/2025 11:00 AM EDT Office Visit [facility] [address] [place] [address] [address]rd Floor, [address] [place] [address] Keny Lama DO [address] [facility] [address] [place] [address] 06/29/2025 11:00 AM EDT Office Visit [facility] [address] [place] [address] Bryant Carlson, [address] [place] [address] 02/01/2026 9:20 AM EST Office Visit [facility] [address] [place] [address] Ranjan Spence MD [address] [place] [address] documented as of this encounter Results * PSA (screening) (01/05/2018 9:57 AM EDT) PSA 1.99 0 - 4.00 ng/mL [facility] Blood 01/05/2018 9:57 AM EDT 01/05/2018 9:59 AM EDT us Marco Arriola MD LAB BLOOD BKR ORDERAB LES Final Result [facility] [address] [place] [address] documented in this encounter Visit Diagnoses Diagnosis Enlarged prostate- Primary Hypertrophy of prostate without urinary obstruction and other lower urinary tract symptoms (LUTS) documented in this encounter Additional Health Concerns Assessment Noted Time PHQ-2 Depression Total Score: 1 09/02/19 18 11:31 AM EDT documented as of this encounter Care Teams Tree Doctor Relationship Specialty Start Date End Date Ronnie Sifuentes MD [address] [place] [address] [address] [place] [phone] [email or web address] PCP - General 01/23/17 04/08/21 Elizabeth Hicks MD [address] [place] [address], [address] [place] [address] [email or web address] PCP - General Family Medicine 04/09/21 Bobbi Correa NP [address] [facility] [address] Historical LMR Provider 01/17/17 2 Maisha Riley DO [address] [place] [address], [address] [place] [address] [email or web address] Historical LMR Provider 01/17/17 04/06/21 Marcella Butler CNP [address] [facility], 2nd [place] [address] [email or web address] Historical LMR Provider 01/17/17 Mike Glover MD [address] [place] [address] Historical LMR Provider 01/17/17 9 Delfin Johns MD [address] [facility], [address] [place] [address] [email or web address] Historical LMR Provider 01/17/17 04/06/21 Robbin Watson DO [address] [place] [address] [facility], [place] [address] [email or web address] Historical LMR Provider 01/17/17 04/06/21 Mu Corcoran MD [address] [place] [id number] [email or web address] Historical LMR Provider 01/17/17 9 Carli Mason MD [address] [place] [address] [address] [place] [address] [email or web address] Historical LMR Provider 01/17/17 04/06/21 Pavel Mora MD [address] [place] [address] [address] [place] [address] Historical LMR Provider 01/17/17 2 Ronnie Sifuentes MD [address] [place] [address] [address] [place] [phone] [email or web address] Historical LMR Provider 01/17/17 03/31/18 Herb Mason MD [address] [place] [address] Historical LMR Provider 01/17/17 Ronnie Sifuentes MD [address] [place] [address] [address] [place] [phone] [email or web address] Insurance Assigned Provider 06/27/17 03/31/18 Ronnie Sifuentes MD [address] [place] [address] [address] [place] [phone] [email or web address] Insurance Assigned Provider 06/27/17 07/06/21 Elizabeth Hicks MD [address] [place] [address] [address] [place] [address] [email or web address] Insurance Assigned Provider 07/04/23 Ranjan Spence MD [address] [place] [id number] [email or web address] Primary Oncologist Medical Oncology 06/12/22 documented as of this encounter Additional Source Comments The information contained in this document represents components of the legal health record. It is not the complete legal health record.[facility]
--- OUTSIDE RECORDS SUMMARY | 2025-02-01 13:52 | XMS_ITS | Encounter Summary ---
Author Organization [facility] Address [address] [employer] [facility] [address] [place] [address] Phone Care Team Providers Care Slot Host Name Role Phone Bobbi Correa NP Unavailable Maisha Riley DO Unavailable Marcella Butler FIELD SALES ENGINEER Unavailable Mike Glover MD Unavailable Delfin Johns MD Unavailable Robbin Watson DO Unavailable Mu Corcoran MD Unavailable Carli Mason MD Unavailable Pavel Mora MD Unavailable Ronnie Sifuentes MD Unavailable Herb Mason MD Unavailable Ronnie Sifuentes MD Primary Care Provider [phone] Ronnie Sifuentes MD Unavailable Elizabeth Hicks MD Primary Care Provider [phone] oRnnie Sifuentes MD Unavailable Elizabeth Hicks MD Unavailable Ranjan Spence MD Unavailable Reason for Referral * Physical Therapy (Elective) - Closed Specialty Diagnoses / Procedures Referred By Mickey t Referred To Contact Physical Therapy Diagnoses Encounter for rehabilitation Left S/P RCR SAD Procedures Evaluate & Treat Tayler Saleh MD Phone: tel: fax: [facility] [address] [place] [address] Phone: tel: Referral ID Status Reason Start Date Expiration Date Visits Re quested Visits Authorized [id number] Closed 11/24/2017 03/29/2018 99 99 Encounter Details Date Type Department Care Team (Latest Contact Info) Description 11/24/2017 Transcribe Orders [facility] [address] [place] [address] Tayler Saleh MD [address] [place] [address] Encounter for rehabilitation (Primary Dx) Social History [...] Description 06/12/2025 11:00 AM EDT Office Visit [facility] [address] [place] [address] [address]rd Floor, [address] [place] [address] Keny Lama DO [address] [facility] [address] [place] [address] 06/29/2025 11:00 AM EDT Office Visit [facility] Medicine [address] [place] [address] Bryant Carlson DO [address] [place] [address] [email or web address] 02/01/2026 9:20 AM EST Office Visit [facility] [address] [place] [address] Ranjan Spence MD [address] [place] [address] [email or web address] documented as of this encounter Procedures Procedure Name Priority Date/Time Associated Diagnosis Comments AMB REFERRAL TO [facility] PH[facility] Routine 12/02/2017 1:22 PM EDT Encounter for rehabilitation documented in this encounter Results * Ambulatory referral to [facility] Physical Therapy (12/02/2017 1:22 PM EDT) us Tayler Saleh MD AMB [facility] REFERR[facility] Constance l Result documented in this encounter Visit Diagnoses Diagnosis Encounter for rehabilitation- Primary documented in this encounter Additional Health Concerns Assessment Noted Time PHQ-2 Depression Total Score: 1 09/02/19 18 11:31 AM EDT documented as of this encounter Care Teams Slot Host Relationship Specialty Start Date End Date Ronnie Sifuentes MD [address] [place] [address] [address] [place] [address] [email or web address] PCP - General 01/23/17 04/08/21 Elizabeth Hicks MD [address] [facility], [address] [place] [address] [email or web address] PCP - General Family Medicine 04/09/21 Bobbi Correa NP [address] [place] [address] Historical LMR Provider 01/17/17 2 Maisha Riley DO [address] [place] [address], [facility] [address] [place] [address] Historical LMR Provider 01/17/17 04/06/21 Marcella Butler CNP [address] [place] [address], 2[address] [place] [address] Historical LMR Provider 01/17/17 Mike Glover MD [address] [place] [address] Historical LMR Provider 01/17/17 9 Delfin Johns MD [address] [facility], [address] [place] [address] Historical LMR Provider 01/17/17 04/06/21 Robbin Watson DO [address] [place] [address] Orthopedics & Sports Medicine, [place] [address] Historical LMR Provider 01/17/17 04/06/21 Mu Corcoran MD [address] [place] [address] [email or web address] Historical LMR Provider 01/17/17 9 Carli Mason MD [address] [place] [address] [address] [place] [address] Historical LMR Provider 01/17/17 04/06/21 [place] [address] [place] [address] [place] [address] Historical LMR Provider 01/17/17 Ronnie Sifuentes MD [address] [place] [address] [address] [place] [phone] [email or web address] Historical LMR Provider 01/17/17 03/31/18 Herb Mason MD [address] [place] [address] Historical LMR Provider 01/17/17 Ronnie Sifuentes MD [address] [place] [address] [address] [place] [phone] [email or web address] Insurance Assigned Provider 06/27/17 03/31/18 Ronnie Sifuentes MD [address] [place] [address] [address] [place] [phone] [email or web address] Insurance Assigned Provider 06/27/17 07/06/21 Elizabeth Hicks MD [address] [place] [address] 7 [place] [address] [email or web address] Insurance Assigned Provider 07/04/23 Ranjan Spence MD [address] [place] [address] [email or web address] Primary Oncologist Medical Oncology 06/12/22 documented as of this encounter Additional Source Comments The information contained in this document represents components of the legal health record. It is not the complete legal health record.[facility]
== END 2025-02-01 11:58 | disposition home or self-care (01) ==
LOC: HO.HUSH 11:21
PROVIDERS: PCP Student in an Organized Health Care Education/Training Program; Visit Provider Urology
DX: N40.1 Benign prostatic hyperplasia with lower urinary tract symptoms (principal); R33.9 Retention of urine, unspecified; N13.8 Other obstructive and reflux uropathy; Z13.9 Encounter for screening, unspecified
CPT/HCPCS: 99213

== ENCOUNTER → 2025-02-01 11:21 | Outpatient (BNVA) | payer MEDICARE, SELFPAY | PROVIDERS: PCP Student in an Organized Health Care Education/Training Program; Visit Provider Urology | DX: N40.1 Benign prostatic hyperplasia with lower urinary tract symptoms (principal); R33.9 Retention of urine, unspecified; N13.8 Other obstructive and reflux uropathy | CPT/HCPCS: 51798; 81003; 99212 ==